=== PATIENT | male | born 1935 | race Hispanic/Latino ===

== ENCOUNTER 2016-08-24 10:02 | Emergency (ER) | payer MEDICARE, MEDICAID ==
[~2016-08-24] VITALS: Ht 170.2 cm; Wt 54.4 kg
[~2016-08-24 10:02] MED LIST: ALBUTEROL SULF8.5 GM INH; ARICEPT10 MG GT; ASPIR 8181 MG GT; COLACE100 MG GT; COLACE100 MG/10 GT; COZAAR25 MG GT; DEPAKOTE ER500 MG ORAL; DOCUSATE SODIU100 MG GT; FLAGYL250 MG GT; LEVAQUIN250 M1 ORAL; LEVOTHYROXINE25 MCG GT; METOPROLOL TART25 MG GT; MULTIVITAMINS1 EAC8 GT; OMEPRAZOLE20 M3 GT; PROTONIX40 M2 GT; TYLENOL EXTRA500 MG GT; VITAMIN A & D113 GM TP; VITAMIN D1000 UNI1 GT; VITAMIN D1000 UNI1 ORAL
[2016-08-24] MEDS ORDERED: TRIPLE ANTIBI28.4 GM TP (10:08)
[2016-08-24] MEDS ORDERED: ACETAMINOP160 MG/5 M ORAL (10:08)
[2016-08-24] MEDS ORDERED: VITAMIN A & D113 GM TP (10:08)
[2016-08-24 11:00] VITALS: BP 132/65
--- NOTE | 2016-08-24 11:31 | Diagnostic Imaging Report ---
Indication: Post gastrostomy replacement Technique: Supine view of the abdomen after injection of water-soluble contrast into gastrostomy Comparison: 08/08/2016 Findings: Contrast opacifies the stomach. No contrast extravasation is demonstrated. The bowel gas pattern is unremarkable. Dense stool is seen within the colon. Findings are unchanged Impression: Satisfactory position of gastrostomy tube
--- NOTE | 2016-08-24 12:22 | Emergency Room Report ---
History of Present Illness General Chief Complaint: Malfunctioning Gastric Tube Source: Medical Record, EMS Present Illness HPI Patient presents with request of the feeding tube confirmation There was a questionable reading on the x-ray as an outpatient It was unclear the patient had appropriate placement of the feeding tube No reports of vomiting or diarrhea patient has been treated as an outpatient nursing facility for pneumonia History of present illness is limited as the patient himself is nonverbal and appears chronically debilitated Allergies: Coded Allergies: NO KNOWN DRUG ALLERGIES (Unverified Allergy, Unknown, 09/20/15) Patient History Past Medical History: see triage record Pertinent Family History: none Reviewed Nursing Documentation: PMH: Agreed, PSxH: Agreed Nursing Documentation-PMH Past Medical History: No History, Except For Hx Cardiac Problems: Yes - anemia, angina,CAD Hx Hypertension: Yes Hx Pacemaker: No Hx Asthma: No Hx COPD: No Hx Diabetes: No Hx Cancer: No Hx Gastrointestinal Problems: Yes - Dysphagia, G-tube Hx Dialysis: No Hx Neurological Problems: Yes Hx Cerebrovascular Accident: Yes - TIA Hx Transient Ischemic Attacks: Yes - no residual Hx Dementia: Yes Hx Seizures: No Hx Spinal Cord Injury: Yes - spinal stenosis Hx Dysphasia: Yes Hx Weakness: Yes - generalized muscle weakness Hx Neurologic Surgery: No Hx Brain Shunt: No Review of Systems All Other Systems: limited - Other than the ones mentioned in the history of present illness all others are reviewed however they do stay limited due to the patient's mental status Physical Exam Vital Signs Date Time Temp Pulse Resp B/P Pulse Ox O2 Delivery O2 Flow Rate FiO2 08/24/16 09:56 96.8 52 22 86/57 99 Nasal Cannula 2.0 Sp02 EP Interpretation: reviewed, normal General Appearance: no apparent distress Head: normocephalic, atraumatic Eyes: bilateral eye PERRL ENT: normal pharynx, no angioedema Neck: supple Respiratory: lungs clear, no rhonchi, crackles - mild crackles in both lower lobes Cardiovascular #1: regular rate, rhythm Gastrointestinal: soft, no mass Neurologic: responsive - To physical stimuli Skin: no rash, warm/dry Medical Decision Making Diagnostic Impression: Primary Impression: Feeding by G-tube Additional Impressions: G tube feedings Encounter for feeding tube placement ER Course The patient appears to have a feeding tube through the stoma This was evaluated further balloon was deflated The feeding tube itself was reevaluated and placed into the stoma without any resistance The balloon was inflated And tapedown at this time KUB Gastrografin reveals intraluminal findings no obvious extravasation And the patient is stable for close outpatient long-term followup Chest X-Ray Diagnostic Results Number of Views: 1 Other X-Ray Diagnostic Results Other X-Ray Diagnostic Results : EP Interpretation: Yes Findings: no fractures, no dislocation, no soft tissue swelling, other - Contrast appears intraluminal no obvious extravasation, Last Vital Signs Date Time Temp Pulse Resp B/P Pulse Ox O2 Delivery O2 Flow Rate FiO2 08/24/16 11:00 82 18 132/65 95 Nasal Cannula 2.0 08/24/16 09:56 96.8 Status: improved Disposition: [facility] SN[facility] Condition: Improved Referrals: NON PHYSICIAN (PCP) MALIK SUAREZ D.O. Aug 24, 2016 12:22
[2016-08-24 12:45] VITALS: BP 131/66
[2016-08-24 12:46] VITALS: BP 132/65
== END 2016-08-24 12:51 ==
LOC: EDBD 10:02 → EMR 10:41
DX: K94.23 Gastrostomy malfunction (principal); Y83.8 Other surgical procedures as the cause of abnormal reaction of the patient, or of later complication, without mention of misadventure at the time of the procedure; D64.9 Anemia, unspecified; I25.119 Atherosclerotic heart disease of native coronary artery with unspecified angina pectoris; I10 Essential (primary) hypertension; R13.10 Dysphagia, unspecified; F03.90 Unspecified dementia, unspecified severity, without behavioral disturbance, psychotic disturbance, mood disturbance, and anxiety; M48.00 Spinal stenosis, site unspecified; R53.1 Weakness; Z86.73 Personal history of transient ischemic attack (TIA), and cerebral infarction without residual deficits
CPT/HCPCS: 43760; 74000

== ENCOUNTER 2017-06-25 09:51 | Emergency (ER) | payer MEDICARE, MEDICAID ==
[~2017-06-25] VITALS: Ht 170.2 cm; Wt 68.0 kg
[~2017-06-25 09:51] MED LIST changes: +ACETAMINOP160 MG/5 M ORAL; +TRIPLE ANTIBI28.4 GM TP
[2017-06-25 10:23] VITALS: BP 109/85
[2017-06-25] MEDS ORDERED: ALBUTEROL2.5 MG/3 M INH (11:23)
[2017-06-25 12:57] VITALS: BP 102/58
--- NOTE | 2017-06-25 14:16 | Emergency Room Report ---
History of Present Illness General Chief Complaint: Malfunctioning Gastric Tube Source: Patient Present Illness HPI 82-year-old male presents ED for G-tube placement. G-tube came out assisted today. On arrival patient showing no signs of distress. Patient has dementia and is unable to provide any history at this time. No other aggravating or relieving factors. No other associated symptoms Allergies: Coded Allergies: NO KNOWN DRUG ALLERGIES (Unverified Allergy, Unknown, 09/20/15) Patient History Past Medical History: CAD, CVA/TIA Past Surgical History: other - gtube Pertinent Family History: none Social History: Denies: smoking, alcohol use, drug use Immunizations: UTD Reviewed Nursing Documentation: PMH: Agreed, PSxH: Agreed Nursing Documentation-PMH Hx Cardiac Problems: Yes - anemia, angina,CAD Hx Hypertension: Yes Hx Pacemaker: No Hx Asthma: No Hx COPD: No Hx Diabetes: No Hx Cancer: No Hx Gastrointestinal Problems: Yes - Dysphagia, G-tube Hx Dialysis: No Hx Neurological Problems: Yes Hx Cerebrovascular Accident: Yes - TIA Hx Transient Ischemic Attacks: Yes - no residual Hx Dementia: Yes Hx Seizures: No Hx Spinal Cord Injury: Yes - spinal stenosis Hx Dysphasia: Yes Hx Weakness: Yes - generalized muscle weakness Hx Neurologic Surgery: No Hx Brain Shunt: No Review of Systems All Other Systems: negative except mentioned in HPI Physical Exam Vital Signs Date Time Temp Pulse Resp B/P (MAP) Pulse Ox O2 Delivery O2 Flow Rate FiO2 06/25/17 09:48 97.0 68 16 98 Room Air 06/25/17 10:23 109/85 Sp02 EP Interpretation: reviewed, normal General Appearance: other - dementia Head: normocephalic Eyes: bilateral eye normal inspection, bilateral eye PERRL ENT: normal ENT inspection Neck: normal inspection Respiratory: normal inspection Cardiovascular #1: normal inspection Gastrointestinal: normal inspection, other - Gtube site C/D/I Rectal: deferred Genitourinary: no CVA tenderness Musculoskeletal: normal inspection Neurologic: other - dementia Psychiatric: other - dementia Skin: normal inspection Lymphatic: normal inspection Procedures Additional Procedure Procedure Narrative G-tube placement Patient placed on stretcher. Old G-tube is removed by deflating the balloon using syringe. G-tube site is inspected with no contraindications to G-tube placement. G-tube slowly inserted until resistance is met; G-tube balloon is slowly filled with 20 mL of normal saline and slowly retracted back until resistance is met. G-tube placement is confirmed with KUB study using Gastrografin Medical Decision Making Diagnostic Impression: Primary Impression: Malfunction of gastrostomy tube ER Course Hospital Course 82-year-old male presents to ED for G-tube placement. Clinical course Patient placed on stretcher. After initial history and physical I replaced G- tube and inflate the balloon. G-tube placement confirmed with KUB study. Patient remained stable without any signs of distress. snf called and patient subsequently discharged back to facility. Dr Trinidad made aware that G-tube was successfully replaced and patient return to facility Diagnosis - malfunction of G tube stable and discharged back to facility. Followup with PMD. Return to ED if symptoms recur or worsen Other X-Ray Diagnostic Results Other X-Ray Diagnostic Results : X-Ray ordered: KUB # of Views/Limited Vs Complete: 1 View Indication: Other - gtube placement EP Interpretation: Yes Interpretation: nonspecific bowel gas, no sbo, other - gtube in place Impression: Other - gtube in place Electronically Signed by: Electronically signed by Cameron Barnett MD Last Vital Signs Date Time Temp Pulse Resp B/P (MAP) Pulse Ox O2 Delivery O2 Flow Rate FiO2 06/25/17 12:57 72 18 102/58 100 Room Air 06/25/17 10:23 97.0 Status: improved Disposition: HOME, SELF-CARE Condition: Stable Referrals: JORDEN VARGAS (PCP) Patient Instructions: Gastrostomy Tube Home Guide, Adult CAMERON BARNETT M.D. Jun 25, 2017 14:16
--- NOTE | 2017-06-25 15:13 | Diagnostic Imaging Report ---
Indication: Status post gastrostomy replacement Technique: Supine view of the abdomen after injection of water-soluble contrast into gastrostomy Comparison: 08/24/2016 Findings: Contrast opacifies the duodenum distal to the bulb. No gastric luminal opacification is demonstrated, so physicians less inflation of the balloon recess. However, on both image sets, contrast flows directly into the second portion of the duodenum, indicating good position of the tip, there is no contrast extravasation. Impression: Presumed status position of gastrostomy tube Findings previously discussed by phone with Dr. Barnett in the emergency room
== END 2017-06-25 13:00 | disposition home or self-care (01) ==
LOC: EDBD 09:51 → EMR 10:18
DX: K94.23 Gastrostomy malfunction (principal); Y83.3 Surgical operation with formation of external stoma as the cause of abnormal reaction of the patient, or of later complication, without mention of misadventure at the time of the procedure; R13.10 Dysphagia, unspecified; I25.10 Atherosclerotic heart disease of native coronary artery without angina pectoris; I10 Essential (primary) hypertension; Z86.73 Personal history of transient ischemic attack (TIA), and cerebral infarction without residual deficits; F03.90 Unspecified dementia, unspecified severity, without behavioral disturbance, psychotic disturbance, mood disturbance, and anxiety
CPT/HCPCS: 43760; 74000; 99284; Q9963

== ENCOUNTER 2017-07-02 10:13 | Inpatient (IN) | payer MEDICARE, MEDICAID ==
[~2017-07-02] VITALS: Ht 162.6 cm; Wt 49.9 kg
[~2017-07-02 10:13] MED LIST changes: +ALBUTEROL2.5 MG/3 M INH
[2017-07-02] MEDS ORDERED: Sodium Chloride 500ML 500 ML IV ONE (10:29)
[2017-07-02 11:07] LABS: MEAN CORPUSCULAR HEMOGLOBIN 32.5 PG (27.0-31.0); MEAN CORPUSCULAR HGB CONC 31.7 G/DL (32.0-36.0); MEAN CORPUSCULAR VOLUME 103 FL (80-99); MEAN PLATELET VOLUME 7.6 FL (6.5-10.1); PLATELET COUNT 209 K/UL (150-450); RED BLOOD COUNT 3.97 M/UL (4.70-6.10); RED CELL DISTRIBUTION WIDTH 11.5 % (11.6-14.8); WHITE BLOOD COUNT 7.7 K/UL (4.8-10.8)
[2017-07-02 11:13] VITALS: BP 122/66
[2017-07-02 11:25] LABS: ANISOCYTOSIS 1+; BAND NEUTROPHILS % (MANUAL) 5 % (0-8); BASOPHILS % (MANUAL) 0 % (0-2); EOSINOPHILS % (MANUAL) 0 % (0-3); LYMPHOCYTES % (MANUAL) 6 % (20-45); MACROCYTES 1+; NEUTROPHILS % (MANUAL) 83 % (45-75); PLATELET ESTIMATE ADEQUATE; PLATELET MORPHOLOGY NORMAL; TOTAL CELLS COUNTED 100
[2017-07-02 11:30] VITALS: BP 121/66
[2017-07-02 11:31] LABS: ALANINE AMINOTRANSFERASE 75 U/L (12-78); ALBUMIN/GLOBULIN RATIO 0.6 (1.0-2.7); ANION GAP 44 mmol/L (5-15); ASPARTATE AMINO TRANSFERASE 77 U/L (15-37); CARBON DIOXIDE 20 MMOL/L (21-32); CHLORIDE 87 MMOL/L (98-107); CREATININE 0.7 MG/DL (0.55-1.30); POTASSIUM 3.6 MMOL/L (3.5-5.1); SODIUM 151 MMOL/L (136-145); TOTAL PROTEIN 6.7 G/DL (6.4-8.2)
[2017-07-02 11:40] LABS: CKMB 1.5 NG/ML (0.0-3.6); LIPASE 84 U/L (73-393)
--- NOTE | 2017-07-02 11:42 | Diagnostic Imaging Report ---
Indication: Chest pain Comparison: 12/10/15 A single view chest radiograph was obtained. Findings: The patient's hand is obscuring the right lung base. There is suggestion of mild atelectasis at the left lung base with low lung volumes noted. Bones are osteopenic. Heart size is normal. Pulmonary vascularity is within normal limits. Impression: Suboptimal examination as described above. Mild left basal atelectasis noted.
[2017-07-02 12:41] LABS: INR 1.1 (0.9-1.1)
[2017-07-02 13:20] VITALS: BP 118/62
--- NOTE | 2017-07-02 13:46 | Emergency Room Report ---
History of Present Illness General Chief Complaint: Gastrointestinal Bleed Source: Patient, Medical Record Present Illness HPI Patient present from nursing facility with reports of coffee-ground emesis Patient has been weaker than usual There was no reports of diarrhea Patient has a feeding tube in place Patient himself is nonverbal History of present illness is limited There was no reports of fevers or chills No rash reported Allergies: Coded Allergies: NO KNOWN DRUG ALLERGIES (Unverified Allergy, Unknown, 09/20/15) Patient History Limited by: medical condition Past Medical History: see triage record Pertinent Family History: none, unable to obtain Reviewed Nursing Documentation: PMH: Agreed, PSxH: Agreed Nursing Documentation-PMH Past Medical History: No History, Except For Hx Cardiac Problems: Yes - anemia, angina,CAD Hx Hypertension: Yes Hx Pacemaker: No Hx Asthma: No Hx COPD: No Hx Diabetes: No Hx Cancer: No Hx Gastrointestinal Problems: Yes - Dysphagia, G-tube Hx Dialysis: No Hx Neurological Problems: Yes Hx Cerebrovascular Accident: Yes - TIA Hx Transient Ischemic Attacks: Yes - no residual Hx Dementia: Yes Hx Seizures: No Hx Spinal Cord Injury: Yes - spinal stenosis Hx Dysphasia: Yes Hx Weakness: Yes - generalized muscle weakness Hx Neurologic Surgery: No Hx Brain Shunt: No Review of Systems All Other Systems: limited - Other than the ones mentioned in the history of present illness all others are reviewed however they do stay limited due to the patient's mental status Physical Exam Vital Signs Date Time Temp Pulse Resp B/P (MAP) Pulse Ox O2 Delivery O2 Flow Rate FiO2 07/02/17 10:14 97.5 108 18 107/51 94 Room Air 07/02/17 11:13 4.0 Sp02 EP Interpretation: reviewed, normal General Appearance: cachetic - weak Head: normocephalic, atraumatic Eyes: bilateral eye PERRL ENT: dry mucus membranes Neck: supple, thyroid normal Respiratory: crackles - diffusely lower lobes Cardiovascular #1: regular rate, rhythm Gastrointestinal: non tender, soft, other - Feeding tube in place Musculoskeletal: other - Patient is chronically debilitated legs are flexed not following commands Neurologic: responsive - To physical stimuli Skin: no rash Lymphatic: no adenopathy Medical Decision Making Diagnostic Impression: Primary Impression: Hypernatremia Additional Impressions: Hypochloremia Dehydration UTI (urinary tract infection) ER Course Patient is complex with multiple differentials considered At this time showing signs of electrolyte abnormality Patient also has concern of possible GI bleeding Patient has evidence of UTI, antibiotic was deferred to infectious disease as there has been multiple assistants previously Patient's further hydrated Requires inpatient care and evaluation Labs Test 07/02/17 10:30 07/02/17 12:20 07/02/17 14:01 White Blood Count 7.7 K/UL (4.8-10.8) Red Blood Count 3.97 M/UL (4.70-6.10) Hemoglobin 12.9 G/DL (14.2-18.0) Hematocrit 40.7 % (42.0-52.0) Mean Corpuscular Volume 103 FL (80-99) Mean Corpuscular Hemoglobin 32.5 PG (27.0-31.0) Mean Corpuscular Hemoglobin Concent 31.7 G/DL (32.0-36.0) Red Cell Distribution Width 11.5 % (11.6-14.8) Platelet Count 209 K/UL (150-450) Mean Platelet Volume 7.6 FL (6.5-10.1) Neutrophils (%) (Auto) % (45.0-75.0) Lymphocytes (%) (Auto) % (20.0-45.0) Monocytes (%) (Auto) % (1.0-10.0) Eosinophils (%) (Auto) % (0.0-3.0) Basophils (%) (Auto) % (0.0-2.0) Differential Total Cells Counted 100 Neutrophils % (Manual) 83 % (45-75) Lymphocytes % (Manual) 6 % (20-45) Monocytes % (Manual) 6 % (1-10) Eosinophils % (Manual) 0 % (0-3) Basophils % (Manual) 0 % (0-2) Band Neutrophils 5 % (0-8) Platelet Estimate Adequate Platelet Morphology Normal Anisocytosis 1+ Macrocytosis 1+ Sodium Level 151 MMOL/L (136-145) Potassium Level 3.6 MMOL/L (3.5-5.1) Chloride Level 87 MMOL/L (98-107) Carbon Dioxide Level 20 MMOL/L (21-32) Anion Gap 44 mmol/L (5-15) Blood Urea Nitrogen 21 mg/dL (7-18) Creatinine 0.7 MG/DL (0.55-1.30) Estimat Glomerular Filtration Rate mL/min (>60) Glucose Level 116 MG/DL (74-106) Calcium Level 8.0 MG/DL (8.5-10.1) Total Bilirubin 0.7 MG/DL (0.2-1.0) Aspartate Amino Transf (AST/SGOT) 77 U/L (15-37) Alanine Aminotransferase (ALT/SGPT) 75 U/L (12-78) Alkaline Phosphatase 103 U/L (46-116) Total Creatine Kinase 48 U/L (26-308) Creatine Kinase MB 1.5 NG/ML (0.0-3.6) Creatine Kinase MB Relative Index 3.1 Troponin I 0.018 ng/mL (0.000-0.056) Pro-B-Type Natriuretic Peptide 462 pg/mL (0-125) Total Protein 6.7 G/DL (6.4-8.2) Albumin 2.6 G/DL (3.4-5.0) Globulin 4.1 g/dL Albumin/Globulin Ratio 0.6 (1.0-2.7) Lipase 84 U/L (73-393) Prothrombin Time 11.0 SEC (9.30-11.50) Prothromb Time International Ratio 1.1 (0.9-1.1) Activated Partial Thromboplast Time 31 SEC (23-33) Urine Color Yellow Urine Appearance Slightly cloudy Urine pH 7 (4.5-8.0) Urine Specific [place] 1.010 (1.005-1.035) Urine Protein 2+ (NEGATIVE) Urine Glucose (UA) Negative (NEGATIVE) Urine Ketones 1+ (NEGATIVE) Urine Occult Blood 5+ (NEGATIVE) Urine Nitrite Positive (NEGATIVE) Urine Bilirubin Negative (NEGATIVE) Urine Urobilinogen 4 MG/DL (0.0-1.0) Urine Leukocyte Esterase 3+ (NEGATIVE) Urine RBC 20-30 /HPF (0 - 0) Urine WBC 5-10 /HPF (0 - 0) Urine Squamous Epithelial Cells Occasional /LPF Urine Bacteria Many /HPF (NONE) Rhythm Strip Diag. Results EP Interpretation: yes Rate: 78 Rhythm: NSR, no PVC's, no ectopy Chest X-Ray Diagnostic Results Chest X-Ray Diagnostic Results : Chest X-Ray Ordered: Yes # of Views/Limited/Complete: 1 View Indication: Shortness of Breath EP Interpretation: Yes Interpretation: no pneumothorax, other - Heart size normal, small effusion difficult exam, Impression: Other - small effusion Electronically Signed by: Samir Suarez DO Last Vital Signs Date Time Temp Pulse Resp B/P (MAP) Pulse Ox O2 Delivery O2 Flow Rate FiO2 07/02/17 11:30 100.0 21 121/66 94 Simple Mask 4.0 07/02/17 11:13 106 Status: improved Disposition: ADMITTED INPATIENT Condition: Serious Referrals: JORDEN VRAGAS (PCP) SAMIR SUAREZ D.O. Jul 02, 2017 13:46
[2017-07-02 14:40] LABS: APPEARANCE,URINE SLIGHTLY CLOUDY; KETONES,URINE 1+ (NEGATIVE); LEUKOCYTE ESTERASE ,URINE 3+ (NEGATIVE); NITRITE,URINE POSITIVE (NEGATIVE); PH,URINE 7 (4.5-8.0); PROTEIN,URINE 2+ (NEGATIVE); UROBILINOGEN,URINE 4 MG/DL (0.0-1.0)
[2017-07-02 14:46] LABS: BACTERIA,URINE MANY /HPF; RBC,URINE 20-30 /HPF (0 - 0); SQUAMOUS EPITHELIAL CELL,UR OCCASIONAL /LPF (NONE/OCC)
--- NOTE | 2017-07-02 16:39 | History & Physical ---
History and Physical History & Physicial coffee ground vomitus PEG UTI Dehydration , High Na MalNutrition Hydrate- Protonix IV Urine c/s [facility] # [id number] JORDEN VARGAS Jul 02, 2017 16:39
[2017-07-02] MEDS ORDERED: Haloperidol 5mg/ml Inj IM PRN (17:00)
[2017-07-02] MEDS ORDERED: cefTRIAXone 1 GM in D5W 55 ML IVPB SCH (18:00)
[2017-07-02 18:15] VITALS: BP 103/63
[2017-07-02] MEDS: Potassium Chloride 10 MEQ in D5 1/2NS 1,000 ML IV SCH (18:22)
--- NOTE | 2017-07-02 19:10 | Consultation ---
History of Present Illness General Date patient seen: Jul 02, 2017 Chief Complaint: Gastrointestinal Bleed Reason for Consultation: inpatient management Present Illness HPI 82 year old male with end stage dementia, Bed bound, cachectic with Gtube, presented from nursing facility with reports of coffee-ground emesis Patient has been weaker than usual. Patient himself is nonverbal. Pt looks chronically ill, and can't give any history. Allergies: Coded Allergies: NO KNOWN DRUG ALLERGIES (Unverified Allergy, Unknown, 09/20/15) Medication History Scheduled Petrolatum,White/Lanolin (Vitamin A & D Ointment), 113 GM TP DAILY, (Reported) Scheduled PRN Acetaminophen 160MG/5ML* (Acetaminophen*), 20 ML ORAL Q6HR PRN for For Pain, ( Reported) Albuterol Sulfate* (Albuterol Sulfate Hhn*), 3 ML INH Q6H PRN for Shortness of Breath, (Reported) Patient History Healthcare decision maker Resuscitation status Do Not Resuscitate Advanced Directive on File Yes Past Medical/Surgical History Past Medical/Surgical History: (1) S/P percutaneous endoscopic gastrostomy (PEG) tube placement (2) Dementia (3) CAD (coronary artery disease) (4) HTN (hypertension) Review of Systems Constitutional: Reports: no symptoms Eye: Reports: no symptoms Physical Exam General Appearance: cachetic Lines, tubes and drains: peripheral HEENT: normocephalic, atraumatic Neck: non-tender, normal alignment Respiratory/Chest: chest wall non-tender, lungs clear Breasts: no masses Cardiovascular/Chest: normal peripheral pulses Abdomen: normal bowel sounds, soft Genitourinary/Rectal: normal genital exam Extremities: normal range of motion Last 24 Hour Vital Signs Date Time Temp Pulse Resp B/P (MAP) Pulse Ox O2 Delivery O2 Flow Rate FiO2 07/02/17 18:15 98.1 93 19 103/63 Nasal Cannula 4.0 07/02/17 16:00 89 07/02/17 11:30 100.0 21 121/66 94 Simple Mask 4.0 07/02/17 11:13 97.5 106 18 122/66 93 Nasal Cannula 4.0 07/02/17 10:14 97.5 108 18 107/51 94 Room Air Intake and Output 07/02/17 07/03/17 19:00 07:00 Output Total 150 ml Balance -150 ml Output Urine Total 150 ml # Voids 1 # Bowel Movements 1 Laboratory Tests Test 07/02/17 10:30 07/02/17 12:20 07/02/17 14:01 White Blood Count 7.7 K/UL (4.8-10.8) Red Blood Count 3.97 M/UL (4.70-6.10) L Hemoglobin 12.9 G/DL (14.2-18.0) L Hematocrit 40.7 % (42.0-52.0) L Mean Corpuscular Volume 103 FL (80-99) H Mean Corpuscular Hemoglobin 32.5 PG (27.0-31.0) H Mean Corpuscular Hemoglobin Concent 31.7 G/DL (32.0-36.0) L Red Cell Distribution Width 11.5 % (11.6-14.8) L Platelet Count 209 K/UL (150-450) Mean Platelet Volume 7.6 FL (6.5-10.1) Neutrophils (%) (Auto) % (45.0-75.0) Lymphocytes (%) (Auto) % (20.0-45.0) Monocytes (%) (Auto) % (1.0-10.0) Eosinophils (%) (Auto) % (0.0-3.0) Basophils (%) (Auto) % (0.0-2.0) Differential Total Cells Counted 100 Neutrophils % (Manual) 83 % (45-75) H Lymphocytes % (Manual) 6 % (20-45) L Monocytes % (Manual) 6 % (1-10) Eosinophils % (Manual) 0 % (0-3) Basophils % (Manual) 0 % (0-2) Band Neutrophils 5 % (0-8) Platelet Estimate Adequate Platelet Morphology Normal Anisocytosis 1+ Macrocytosis 1+ Sodium Level 151 MMOL/L (136-145) H Potassium Level 3.6 MMOL/L (3.5-5.1) Chloride Level 87 MMOL/L (98-107) L Carbon Dioxide Level 20 MMOL/L (21-32) L Anion Gap 44 mmol/L (5-15) H Blood Urea Nitrogen 21 mg/dL (7-18) H Creatinine 0.7 MG/DL (0.55-1.30) Estimat Glomerular Filtration Rate mL/min (>60) Glucose Level 116 MG/DL (74-106) H Calcium Level 8.0 MG/DL (8.5-10.1) L Total Bilirubin 0.7 MG/DL (0.2-1.0) Aspartate Amino Transf (AST/SGOT) 77 U/L (15-37) H Alanine Aminotransferase (ALT/SGPT) 75 U/L (12-78) Alkaline Phosphatase 103 U/L (46-116) Total Creatine Kinase 48 U/L (26-308) Creatine Kinase MB 1.5 NG/ML (0.0-3.6) Creatine Kinase MB Relative Index 3.1 Troponin I 0.018 ng/mL (0.000-0.056) Pro-B-Type Natriuretic Peptide 462 pg/mL (0-125) H Total Protein 6.7 G/DL (6.4-8.2) Albumin 2.6 G/DL (3.4-5.0) L Globulin 4.1 g/dL Albumin/Globulin Ratio 0.6 (1.0-2.7) L Lipase 84 U/L (73-393) Prothrombin Time 11.0 SEC (9.30-11.50) Prothromb Time International Ratio 1.1 (0.9-1.1) Activated Partial Thromboplast Time 31 SEC (23-33) Urine Color Yellow Urine Appearance Slightly cloudy Urine pH 7 (4.5-8.0) Urine Specific [place] 1.010 (1.005-1.035) Urine Protein 2+ (NEGATIVE) H Urine Glucose (UA) Negative (NEGATIVE) Urine Ketones 1+ (NEGATIVE) H Urine Occult Blood 5+ (NEGATIVE) H Urine Nitrite Positive (NEGATIVE) H Urine Bilirubin Negative (NEGATIVE) Urine Urobilinogen 4 MG/DL (0.0-1.0) H Urine Leukocyte Esterase 3+ (NEGATIVE) H Urine RBC 20-30 /HPF (0 - 0) H Urine WBC 5-10 /HPF (0 - 0) H Urine Squamous Epithelial Cells Occasional /LPF Urine Bacteria Many /HPF (NONE) H Height (Feet): 5 Height (Inches): 4.00 Weight (Pounds): 110 Medications Current Medications Medications (Trade) Dose Ordered Sig/Jovanna Route PRN Reason Start Time Stop Time Status Last Admin Dose Admin Albuterol Sulfate (Proventil) 2.5 mg TIDRT HHN 07/02/17 19:00 07/07/17 18:59 Ceftriaxone Sodium 1 gm/ Dextrose 55 ml @ 110 mls/hr Q24H IVPB 07/02/17 18:00 07/09/17 17:59 07/02/17 18:22 Haloperidol Lactate (Haldol) 2 mg Q4H PRN IM Agitation 07/02/17 17:00 08/01/17 16:59 Heparin Sodium (Porcine) (Heparin 5000 units/ml) 5,000 units EVERY 12 HOURS SUBQ 07/02/17 21:00 08/01/17 20:59 Metoprolol Tartrate (Lopressor) 12.5 mg Q12HR GT 07/02/17 21:00 08/01/17 20:59 Pantoprazole (Protonix) 40 mg EVERY 12 HOURS IVP 07/02/17 21:00 08/01/17 20:59 Potassium Chloride 10 meq/ Dextrose/Sodium Chloride 1,005 ml @ 75 mls/hr [id number] IV 07/02/17 18:15 08/01/17 18:14 07/02/17 18:22 Assessment/Plan Problem List: (1) Gastrointestinal hemorrhage ICD Codes: K92.2 - Gastrointestinal hemorrhage, unspecified SNOMED: 17516839 (2) S/P percutaneous endoscopic gastrostomy (PEG) tube placement ICD Codes: Z93.1 - Gastrostomy status SNOMED: 068562234 (3) Dementia ICD Codes: F03.90 - Unspecified dementia without behavioral disturbance SNOMED: 41311054 (4) CAD (coronary artery disease) ICD Codes: I25.10 - Atherosclerotic heart disease of [place] coronary artery without angina pectoris SNOMED: 17219275 (5) HTN (hypertension) ICD Codes: I10 - Essential (primary) hypertension SNOMED: 03943294 (6) Hypernatremia ICD Codes: E87.0 - Hyperosmolality and hypernatremia SNOMED: 36300622 Assessment/Plan NPO IV fluids check electrolytes GI evaluation dvt prophylaxis DAVID SERVIN Jul 02, 2017 19:10
[2017-07-02] MEDS: Albuterol ud Inhalation HHN SCH (19:33)
[2017-07-02 20:00] VITALS: BP 135/74
[2017-07-02] MEDS: Pantoprazole Inj IVP SCH (21:19)
[2017-07-02] MEDS: Metoprolol Tartrate 12.5mg TAB GT SCH (21:20)
[2017-07-02] MEDS: Heparin 5000 units/ml inj SUBQ SCH (21:22)
--- NOTE | 2017-07-02 22:45 | History and Physical Report ---
DATE OF ADMISSION: 07/02/2017 HISTORY OF PRESENT ILLNESS: The patient is an 82-year-old male, in vegetative state in [facility], DNR and DNI, who had coffee-ground vomitus, was sent to emergency room here for evaluation. After he was evaluated by Dr. Arteaga in emergency room the patient is being admitted with gastrointestinal bleed, hypernatremia, dehydration, and evidence of urinary tract infection. PAST MEDICAL HISTORY: Significant for dementia, hypothyroidism, previous UTI, PEG, malnutrition, anemia, and hypertension. MEDICATIONS: According to the list. PHYSICAL EXAMINATION: VITAL SIGNS: At this time, the patient's blood pressure , pulse rate 106, T-max 100, respiratory rate 21, GENERAL: Nonverbal. Face slightly pale. HEENT: Head is normocephalic. NECK: Rigid to all direction. LUNGS: Poor inspiratory effort. Decreased breath sound over the bases. HEART: Regular. Occasional irregular beat. Slightly tachy. GT-tube in place. ABDOMEN: Soft. EXTREMITIES: Lower extremities, somewhat contracted. LABORATORY DATA: Hemoglobin 12.9. BUN 44, sodium 151. Albumin 2.6. Urine has 3+ leukocyte esterase, 2+ protein, 30 RBCs, and 10 white blood cells. IMPRESSION: Coffee-ground vomiting and gastrointestinal bleed most likely secondary to underlying infection and urinary tract infection, also evidence of dehydration and malnutrition. The patient has PEG and hypernatremia due to dehydration. The patient has organic brain syndrome and hypothyroidism. PLAN: Hydrate. Protonix IV. Urine for culture. Breathing treatment. Rocephin. Pulmonary evaluation. According to how the patient's condition evolves, we make the proper changes in our future management. The patient is DNR/DNI. Da Davis M.D. DR: Reynaldo JOB#: [id number] CC:
[2017-07-03] VITALS: BP 121/70
[2017-07-03 04:00] VITALS: BP 114/69
[2017-07-03 08:00] VITALS: BP 108/61
[2017-07-03] MEDS: Albuterol ud Inhalation HHN SCH ×3 (08:16→20:04)
[2017-07-03] MEDS: Pantoprazole Inj IVP SCH ×2 (08:41→20:37)
[2017-07-03] MEDS: Potassium Chloride 10 MEQ in D5 1/2NS 1,000 ML IV SCH (08:41)
[2017-07-03] MEDS: Heparin 5000 units/ml inj SUBQ SCH (08:52)
[2017-07-03] MEDS: Metoprolol Tartrate 12.5mg TAB GT SCH (08:58)
[2017-07-03 10:06] LABS: MEAN CORPUSCULAR HEMOGLOBIN 32.6 PG (27.0-31.0); MEAN CORPUSCULAR VOLUME 102 FL (80-99); PLATELET COUNT 201 K/UL (150-450); RED BLOOD COUNT 3.59 M/UL (4.70-6.10); RED CELL DISTRIBUTION WIDTH 11.1 % (11.6-14.8); WHITE BLOOD COUNT 18.3 K/UL (4.8-10.8)
[2017-07-03 10:38] LABS: ALANINE AMINOTRANSFERASE 72 U/L (12-78); ALBUMIN/GLOBULIN RATIO 0.6 (1.0-2.7); ANION GAP 7 mmol/L (5-15); ASPARTATE AMINO TRANSFERASE 78 U/L (15-37); CALCIUM 8.6 MG/DL (8.5-10.1); CARBON DIOXIDE 26 MMOL/L (21-32); CHLORIDE 101 MMOL/L (98-107); CHOLESTEROL 72 MG/DL (< 200); CHOLESTEROL/HDL RATIO 1.6 (3.3-4.4); CREATININE 0.7 MG/DL (0.55-1.30); CRP QUANT 11.8 mg/dL (0.00-0.90); MAGNESIUM 1.8 MG/DL (1.8-2.4); SODIUM 134 MMOL/L (136-145); THYROID STIMULATING HORMONE 3.189 uiU/mL (0.360-3.740); TOTAL PROTEIN 6.8 G/DL (6.4-8.2); URIC ACID 3.3 MG/DL (2.6-7.2)
[2017-07-03 10:39] LABS: BILIRUBIN,DIRECT 0.9 MG/DL (0.0-0.3)
[2017-07-03 10:41] LABS: BAND NEUTROPHILS % (MANUAL) 10 % (0-8); BASOPHILS % (MANUAL) 0 % (0-2); EOSINOPHILS % (MANUAL) 0 % (0-3); LYMPHOCYTES % (MANUAL) 8 % (20-45); NEUTROPHILS % (MANUAL) 81 % (45-75); PLATELET ESTIMATE ADEQUATE; PLATELET MORPHOLOGY NORMAL; TOTAL CELLS COUNTED 100
[2017-07-03 10:46] LABS: FOLIC ACID 18.3 NG/ML (3.1-17.5)
[2017-07-03 12:00] VITALS: BP 112/63
--- NOTE | 2017-07-03 12:29 | General Progress Note ---
Assessment/Plan Status: stable Status Narrative H&H stable- Urine c/s pending Assessment/Plan status: coffee ground vomitus PEG UTI Dehydration , High Na MalNutrition Plan: Hydrate- Protonix IV Urine c/s HHN Rocephin start GT feeding Med-Surge Subjective ROS Limited/Unobtainable: Yes Allergies: Coded Allergies: NO KNOWN DRUG ALLERGIES (Unverified Allergy, Unknown, 09/20/15) Objective Last 24 Hour Vital Signs Date Time Temp Pulse Resp B/P (MAP) Pulse Ox O2 Delivery O2 Flow Rate FiO2 07/03/17 08:58 102 108/61 07/03/17 08:26 94 20 97 Nasal Cannula 4.0 36 07/03/17 08:18 92 20 95 Nasal Cannula 4.0 36 07/03/17 08:18 95 Nasal Cannula 4.0 36 07/03/17 08:18 Nasal Cannula 4.0 36 07/03/17 08:00 97.5 92 20 108/61 90 Room Air 07/03/17 04:00 97.7 97 18 114/69 100 Nasal Cannula 4.0 07/03/17 04:00 98 07/03/17 00:00 98.4 20 121/70 100 Nasal Cannula 4.0 07/03/17 00:00 94 07/02/17 21:20 99 135/55 07/02/17 20:00 97.9 93 20 135/74 100 Nasal Cannula 4.0 07/02/17 20:00 86 07/02/17 19:42 92 18 97 Nasal Cannula 4.0 36 07/02/17 19:33 90 18 Nasal Cannula 4.0 36 07/02/17 19:33 94 Nasal Cannula 4.0 36 07/02/17 19:33 90 18 94 Nasal Cannula 4.0 36 07/02/17 19:33 Nasal Cannula 4.0 36 07/02/17 18:15 98.1 93 19 103/63 Nasal Cannula 4.0 07/02/17 16:00 89 07/02/17 13:58 100.0 66 21 118/56 94 Simple Mask 4.0 07/02/17 13:20 100.0 66 21 118/62 94 Simple Mask 4.0 Laboratory Tests 07/02/17 14:01: Urine Color Yellow, Urine Appearance Slightly cloudy, Urine pH 7, Urine Specific [place] 1.010, Urine Protein 2+H, Urine Glucose (UA) Negative, Urine Ketones 1+H, Urine Occult Blood 5+H, Urine Nitrite PositiveH, Urine Bilirubin Negative, Urine Urobilinogen 4H, Urine Leukocyte Esterase 3+H, Urine RBC 20-30H , Urine WBC 5-10H, Urine Squamous Epithelial Cells Occasional, Urine Bacteria ManyH 07/03/17 09:40: White Blood Count 18.3#H, Red Blood Count 3.59L, Hemoglobin 11.7L, Hematocrit 36.5L, Mean Corpuscular Volume 102H, Mean Corpuscular Hemoglobin 32.6H, Mean Corpuscular Hemoglobin Concent 32.0, Red Cell Distribution Width 11.1L, Platelet Count 201, Mean Platelet Volume 7.0, Neutrophils (%) (Auto) , Lymphocytes (%) (Auto) , Monocytes (%) (Auto) , Eosinophils (%) (Auto) , Basophils (%) (Auto) , Differential Total Cells Counted 100, Neutrophils % ( Manual) 81H, Lymphocytes % (Manual) 8L, Monocytes % (Manual) 1, Eosinophils % ( Manual) 0, Basophils % (Manual) 0, Band Neutrophils 10H, Platelet Estimate Adequate, Platelet Morphology Normal, Sodium Level 134#L, Potassium Level 4.0, Chloride Level 101, Carbon Dioxide Level 26, Anion Gap 7, Blood Urea Nitrogen 27H, Creatinine 0.7, Estimat Glomerular Filtration Rate , Glucose Level 133H, Uric Acid 3.3, Calcium Level 8.6, Phosphorus Level 2.0L, Magnesium Level 1.8, Total Bilirubin 1.2H, Direct Bilirubin 0.9H, Gamma Glutamyl Transpeptidase 83, Aspartate Amino Transf (AST/SGOT) 78H, Alanine Aminotransferase (ALT/SGPT) 72, Alkaline Phosphatase 68, C-Reactive Protein, Quantitative 11.8H, Pro-B-Type Natriuretic Peptide 2670H, Total Protein 6.8, Albumin 2.6L, Globulin 4.2, Albumin/Globulin Ratio 0.6L, Triglycerides Level 22, Cholesterol Level 72, LDL Cholesterol 29, HDL Cholesterol 45, Cholesterol/HDL Ratio 1.6L, Vitamin B12 Level 655, Folate 18.3H, Thyroid Stimulating Hormone (TSH) 3.189 Height (Feet): 5 Height (Inches): 4.00 Weight (Pounds): 110 JORDEN VARGAS Jul 03, 2017 12:29
--- NOTE | 2017-07-03 12:48 | Pulmonology Progress Note ---
Assessment/Plan Problems: (1) Gastrointestinal hemorrhage (2) S/P percutaneous endoscopic gastrostomy (PEG) tube placement (3) Hypernatremia (4) Hematuria (5) HTN (hypertension) (6) CAD (coronary artery disease) (7) Dementia Assessment/Plan GI evaluation npo check electrolytes abx check cultures Subjective ROS Limited/Unobtainable: Yes Allergies: Coded Allergies: NO KNOWN DRUG ALLERGIES (Unverified Allergy, Unknown, 09/20/15) Objective Last 24 Hour Vital Signs Date Time Temp Pulse Resp B/P (MAP) Pulse Ox O2 Delivery O2 Flow Rate FiO2 07/03/17 08:58 102 108/61 07/03/17 08:26 94 20 97 Nasal Cannula 4.0 36 07/03/17 08:18 92 20 95 Nasal Cannula 4.0 36 07/03/17 08:18 95 Nasal Cannula 4.0 36 07/03/17 08:18 Nasal Cannula 4.0 36 07/03/17 08:00 97.5 92 20 108/61 90 Room Air 07/03/17 04:00 97.7 97 18 114/69 100 Nasal Cannula 4.0 07/03/17 04:00 98 07/03/17 00:00 98.4 20 121/70 100 Nasal Cannula 4.0 07/03/17 00:00 94 07/02/17 21:20 99 135/55 07/02/17 20:00 97.9 93 20 135/74 100 Nasal Cannula 4.0 07/02/17 20:00 86 07/02/17 19:42 92 18 97 Nasal Cannula 4.0 36 07/02/17 19:33 90 18 Nasal Cannula 4.0 36 07/02/17 19:33 94 Nasal Cannula 4.0 36 07/02/17 19:33 90 18 94 Nasal Cannula 4.0 36 07/02/17 19:33 Nasal Cannula 4.0 36 07/02/17 18:15 98.1 93 19 103/63 Nasal Cannula 4.0 07/02/17 16:00 89 07/02/17 13:58 100.0 66 21 118/56 94 Simple Mask 4.0 07/02/17 13:20 100.0 66 21 118/62 94 Simple Mask 4.0 General Appearance: cachetic HEENT: normocephalic, atraumatic Respiratory/Chest: chest wall non-tender, lungs clear, chest wall tender Cardiovascular: normal rate Abdomen: normal bowel sounds, soft, non tender Genitourinary: normal external genitalia Extremities: no clubbing Skin: no rash Neurologic/Psychiatric: animal nutritionist II-XII grossly normal Microbiology Date/Time Source Procedure Growth Status 07/02/17 14:01 Urine,Clean Catch Urine Culture - Preliminary Gram Negative Bacillus 1 Resulted Laboratory Tests 07/02/17 14:01: Urine Color Yellow, Urine Appearance Slightly cloudy, Urine pH 7, Urine Specific [place] 1.010, Urine Protein 2+H, Urine Glucose (UA) Negative, Urine Ketones 1+H, Urine Occult Blood 5+H, Urine Nitrite PositiveH, Urine Bilirubin Negative, Urine Urobilinogen 4H, Urine Leukocyte Esterase 3+H, Urine RBC 20-30H , Urine WBC 5-10H, Urine Squamous Epithelial Cells Occasional, Urine Bacteria ManyH 07/03/17 09:40: White Blood Count 18.3#H, Red Blood Count 3.59L, Hemoglobin 11.7L, Hematocrit 36.5L, Mean Corpuscular Volume 102H, Mean Corpuscular Hemoglobin 32.6H, Mean Corpuscular Hemoglobin Concent 32.0, Red Cell Distribution Width 11.1L, Platelet Count 201, Mean Platelet Volume 7.0, Neutrophils (%) (Auto) , Lymphocytes (%) (Auto) , Monocytes (%) (Auto) , Eosinophils (%) (Auto) , Basophils (%) (Auto) , Differential Total Cells Counted 100, Neutrophils % ( Manual) 81H, Lymphocytes % (Manual) 8L, Monocytes % (Manual) 1, Eosinophils % ( Manual) 0, Basophils % (Manual) 0, Band Neutrophils 10H, Platelet Estimate Adequate, Platelet Morphology Normal, Sodium Level 134#L, Potassium Level 4.0, Chloride Level 101, Carbon Dioxide Level 26, Anion Gap 7, Blood Urea Nitrogen 27H, Creatinine 0.7, Estimat Glomerular Filtration Rate , Glucose Level 133H, Uric Acid 3.3, Calcium Level 8.6, Phosphorus Level 2.0L, Magnesium Level 1.8, Total Bilirubin 1.2H, Direct Bilirubin 0.9H, Gamma Glutamyl Transpeptidase 83, Aspartate Amino Transf (AST/SGOT) 78H, Alanine Aminotransferase (ALT/SGPT) 72, Alkaline Phosphatase 68, C-Reactive Protein, Quantitative 11.8H, Pro-B-Type Natriuretic Peptide 2670H, Total Protein 6.8, Albumin 2.6L, Globulin 4.2, Albumin/Globulin Ratio 0.6L, Triglycerides Level 22, Cholesterol Level 72, LDL Cholesterol 29, HDL Cholesterol 45, Cholesterol/HDL Ratio 1.6L, Vitamin B12 Level 655, Folate 18.3H, Thyroid Stimulating Hormone (TSH) 3.189 Current Medications Medications (Trade) Dose Ordered Sig/Jovanna Route PRN Reason Start Time Stop Time Status Last Admin Dose Admin Albuterol Sulfate (Proventil) 2.5 mg TIDRT HHN 07/02/17 19:00 07/07/17 18:59 07/03/17 08:16 Ceftriaxone Sodium 1 gm/ Dextrose 55 ml @ 110 mls/hr Q24H IVPB 07/02/17 18:00 07/09/17 17:59 07/02/17 18:22 Dextrose/Sodium Chloride 1,000 ml @ 50 mls/hr Q20H IV 07/03/17 13:00 08/02/17 12:59 Haloperidol Lactate (Haldol) 2 mg Q4H PRN IM Agitation 07/02/17 17:00 08/01/17 16:59 Heparin Sodium (Porcine) (Heparin 5000 units/ml) 5,000 units EVERY 12 HOURS SUBQ 07/02/17 21:00 08/01/17 20:59 07/03/17 08:52 Metoprolol Tartrate (Lopressor) 25 mg Q12HR GT 07/03/17 21:00 08/02/17 20:59 Pantoprazole (Protonix) 40 mg EVERY 12 HOURS IVP 07/02/17 21:00 08/01/17 20:59 07/03/17 08:41 Sodium Phosphate 15 mm/Sodium Chloride 280 ml @ 70.273 mls/ hr ONCE ONCE IVPB 07/03/17 14:00 07/03/17 17:59 DAVID SERVIN Jul 03, 2017 12:48
[2017-07-03] MEDS ORDERED: D5NS 1,000 ML IV SCH ×2 (13:00→14:00)
[2017-07-03] MEDS ORDERED: Sodium Phosphate 15 MM in NS 275 ML IVPB ONE ×4 (14:00)
[2017-07-03 15:51] VITALS: BP 123/67
[2017-07-03] MEDS ORDERED: Haloperidol 5mg/ml Inj IM PRN (17:00)
[2017-07-03] MEDS: cefTRIAXone 1 GM in D5W 55 ML IVPB SCH (18:20)
[2017-07-03 20:00] VITALS: BP 136/89
[2017-07-03] MEDS: Metoprolol 25mg tab GT SCH (20:37)
[2017-07-03] MEDS ORDERED: Heparin 5000 units/ml inj SUBQ SCH (21:00)
[2017-07-03] MEDS ORDERED: Metoprolol 25mg tab GT SCH (21:00)
[2017-07-04] VITALS (7 sets, daily range): BP systolic 120–151; BP diastolic 51–85
--- NOTE | 2017-07-04 01:45 | Consultation ---
DATE OF CONSULTATION: 07/03/2017 CONSULTING PHYSICIAN: Isaiah Rdz M.D. REASON FOR CONSULTATION: Gross hematuria. The patient was admitted to the hospital with gastrointestinal bleeding. HISTORY OF PRESENT ILLNESS: The patient is an 82-year-old man, [facility] patient, presents with coffee-ground emesis. Nelson catheter was placed. He developed some mild gross hematuria. PAST MEDICAL HISTORY: Significant for status post percutaneous endoscopic gastrostomy, dementia, coronary artery disease, and hypertension. ALLERGIES: No known allergies. MEDICATIONS: He is on acetaminophen and albuterol. REVIEW OF SYMPTOMS: The patient is unresponsive and cannot obtain review of symptoms. PHYSICAL EXAMINATION: HEENT: He is cachectic and normocephalic. RESPIRATORY: Chest wall, nontender. BREASTS: No masses. CARDIOVASCULAR: Normal peripheral pulses. ABDOMEN: Soft and nontender. Nelson catheter is in place. SCROTAL EXAM: Normal. RECTAL EXAM: Normal. LABORATORY AND DIAGNOSTIC DATA: Urine has a slight tinge of blood in the tubing yellow. His laboratory work, his white count is 7.7 and hematocrit 40.7. His urine culture shows gram-negative bacilli. ASSESSMENT AND PLAN: The patient has mild gross hematuria. I would recommend to keep the Nelson catheter. Give him oral intravenous antibiotics. Stop heparin at this point to wait until the hematuria resolves. I will follow this patient with you. Thanks for the consultation. Isaiah Rdz M.D. DR: MIA/Stephany JOB#: [id number] CC:
[2017-07-04] MEDS: Albuterol ud Inhalation HHN SCH ×3 (07:23→19:28)
--- NOTE | 2017-07-04 08:13 | General Progress Note ---
Assessment/Plan Status: stable Assessment/Plan status: coffee ground vomitus PEG UTI, with mild henmaturia Dehydration , High Na MalNutrition Plan: labs in am stop IV fluid Protonix IV Urine c/s- pending final HHN Rocephin Up GT feeding Subjective ROS Limited/Unobtainable: No Allergies: Coded Allergies: NO KNOWN DRUG ALLERGIES (Unverified Allergy, Unknown, 09/20/15) Objective Last 24 Hour Vital Signs Date Time Temp Pulse Resp B/P (MAP) Pulse Ox O2 Delivery O2 Flow Rate FiO2 07/04/17 07:32 91 18 99 Nasal Cannula 3.0 32 07/04/17 07:24 96 Nasal Cannula 3.0 32 07/04/17 07:24 81 16 96 Nasal Cannula 3.0 32 07/04/17 07:24 Nasal Cannula 3.0 32 07/04/17 04:00 97.9 87 20 151/81 100 Nasal Cannula 4.0 07/04/17 00:00 97.7 81 18 136/85 99 Nasal Cannula 4.0 07/03/17 20:37 89 136/67 07/03/17 20:13 89 18 99 Nasal Cannula 3.0 32 07/03/17 20:04 98 Nasal Cannula 3.0 32 07/03/17 20:04 88 18 98 Nasal Cannula 3.0 32 07/03/17 20:04 Nasal Cannula 4.0 36 07/03/17 20:00 97.7 87 20 136/89 99 Nasal Cannula 4.0 07/03/17 15:51 97.5 89 21 123/67 100 Nasal Cannula 2.0 07/03/17 13:04 92 22 97 Nasal Cannula 4.0 36 07/03/17 12:54 91 20 95 Nasal Cannula 4.0 36 07/03/17 12:00 97.7 93 20 112/63 95 Room Air 07/03/17 08:58 102 108/61 07/03/17 08:26 94 20 97 Nasal Cannula 4.0 36 07/03/17 08:18 92 20 95 Nasal Cannula 4.0 36 07/03/17 08:18 95 Nasal Cannula 4.0 36 07/03/17 08:18 Nasal Cannula 4.0 36 Laboratory Tests 07/03/17 09:40: White Blood Count 18.3#H, Red Blood Count 3.59L, Hemoglobin 11.7L, Hematocrit 36.5L, Mean Corpuscular Volume 102H, Mean Corpuscular Hemoglobin 32.6H, Mean Corpuscular Hemoglobin Concent 32.0, Red Cell Distribution Width 11.1L, Platelet Count 201, Mean Platelet Volume 7.0, Neutrophils (%) (Auto) , Lymphocytes (%) (Auto) , Monocytes (%) (Auto) , Eosinophils (%) (Auto) , Basophils (%) (Auto) , Differential Total Cells Counted 100, Neutrophils % ( Manual) 81H, Lymphocytes % (Manual) 8L, Monocytes % (Manual) 1, Eosinophils % ( Manual) 0, Basophils % (Manual) 0, Band Neutrophils 10H, Platelet Estimate Adequate, Platelet Morphology Normal, Sodium Level 134#L, Potassium Level 4.0, Chloride Level 101, Carbon Dioxide Level 26, Anion Gap 7, Blood Urea Nitrogen 27H, Creatinine 0.7, Estimat Glomerular Filtration Rate , Glucose Level 133H, Uric Acid 3.3, Calcium Level 8.6, Phosphorus Level 2.0L, Magnesium Level 1.8, Total Bilirubin 1.2H, Direct Bilirubin 0.9H, Gamma Glutamyl Transpeptidase 83, Aspartate Amino Transf (AST/SGOT) 78H, Alanine Aminotransferase (ALT/SGPT) 72, Alkaline Phosphatase 68, C-Reactive Protein, Quantitative 11.8H, Pro-B-Type Natriuretic Peptide 2670H, Total Protein 6.8, Albumin 2.6L, Globulin 4.2, Albumin/Globulin Ratio 0.6L, Triglycerides Level 22, Cholesterol Level 72, LDL Cholesterol 29, HDL Cholesterol 45, Cholesterol/HDL Ratio 1.6L, Vitamin B12 Level 655, Folate 18.3H, Thyroid Stimulating Hormone (TSH) 3.189 Height (Feet): 5 Height (Inches): 4.00 Weight (Pounds): 110 General Appearance: no apparent distress, other - tolerating feeding Respiratory/Chest: decreased breath sounds Objective no change in [place] JORDEN VARGAS Jul 04, 2017 08:13
--- NOTE | 2017-07-04 09:07 | Pulmonology Progress Note ---
Assessment/Plan Problems: (1) Gastrointestinal hemorrhage (2) S/P percutaneous endoscopic gastrostomy (PEG) tube placement (3) Hypernatremia (4) Hematuria (5) HTN (hypertension) (6) CAD (coronary artery disease) (7) Dementia Assessment/Plan tolerating feeding ON Ceftriaxone check electrolytes abx check cultures Subjective ROS Limited/Unobtainable: Yes Interval Events: not much chagne, looks cachectic , severly ill Allergies: Coded Allergies: NO KNOWN DRUG ALLERGIES (Unverified Allergy, Unknown, 09/20/15) Objective Last 24 Hour Vital Signs Date Time Temp Pulse Resp B/P (MAP) Pulse Ox O2 Delivery O2 Flow Rate FiO2 07/04/17 07:32 91 18 99 Nasal Cannula 3.0 32 07/04/17 07:24 96 Nasal Cannula 3.0 32 07/04/17 07:24 81 16 96 Nasal Cannula 3.0 32 07/04/17 07:24 Nasal Cannula 3.0 32 07/04/17 04:00 97.9 87 20 151/81 100 Nasal Cannula 4.0 07/04/17 00:00 97.7 81 18 136/85 99 Nasal Cannula 4.0 07/03/17 20:37 89 136/67 07/03/17 20:13 89 18 99 Nasal Cannula 3.0 32 07/03/17 20:04 98 Nasal Cannula 3.0 32 07/03/17 20:04 88 18 98 Nasal Cannula 3.0 32 07/03/17 20:04 Nasal Cannula 4.0 36 07/03/17 20:00 97.7 87 20 136/89 99 Nasal Cannula 4.0 07/03/17 15:51 97.5 89 21 123/67 100 Nasal Cannula 2.0 07/03/17 13:04 92 22 97 Nasal Cannula 4.0 36 07/03/17 12:54 91 20 95 Nasal Cannula 4.0 36 07/03/17 12:00 97.7 93 20 112/63 95 Room Air General Appearance: cachetic HEENT: normocephalic, atraumatic Respiratory/Chest: chest wall non-tender, lungs clear Cardiovascular: normal peripheral pulses, normal rate Abdomen: normal bowel sounds, no organomegaly Genitourinary: normal external genitalia Skin: no rash Microbiology Date/Time Source Procedure Growth Status 07/02/17 14:01 Urine,Clean Catch Urine Culture - Preliminary Gram Negative Bacillus 1 Resulted Laboratory Tests 07/03/17 09:40: White Blood Count 18.3#H, Red Blood Count 3.59L, Hemoglobin 11.7L, Hematocrit 36.5L, Mean Corpuscular Volume 102H, Mean Corpuscular Hemoglobin 32.6H, Mean Corpuscular Hemoglobin Concent 32.0, Red Cell Distribution Width 11.1L, Platelet Count 201, Mean Platelet Volume 7.0, Neutrophils (%) (Auto) , Lymphocytes (%) (Auto) , Monocytes (%) (Auto) , Eosinophils (%) (Auto) , Basophils (%) (Auto) , Differential Total Cells Counted 100, Neutrophils % ( Manual) 81H, Lymphocytes % (Manual) 8L, Monocytes % (Manual) 1, Eosinophils % ( Manual) 0, Basophils % (Manual) 0, Band Neutrophils 10H, Platelet Estimate Adequate, Platelet Morphology Normal, Sodium Level 134#L, Potassium Level 4.0, Chloride Level 101, Carbon Dioxide Level 26, Anion Gap 7, Blood Urea Nitrogen 27H, Creatinine 0.7, Estimat Glomerular Filtration Rate , Glucose Level 133H, Uric Acid 3.3, Calcium Level 8.6, Phosphorus Level 2.0L, Magnesium Level 1.8, Total Bilirubin 1.2H, Direct Bilirubin 0.9H, Gamma Glutamyl Transpeptidase 83, Aspartate Amino Transf (AST/SGOT) 78H, Alanine Aminotransferase (ALT/SGPT) 72, Alkaline Phosphatase 68, C-Reactive Protein, Quantitative 11.8H, Pro-B-Type Natriuretic Peptide 2670H, Total Protein 6.8, Albumin 2.6L, Globulin 4.2, Albumin/Globulin Ratio 0.6L, Triglycerides Level 22, Cholesterol Level 72, LDL Cholesterol 29, HDL Cholesterol 45, Cholesterol/HDL Ratio 1.6L, Vitamin B12 Level 655, Folate 18.3H, Thyroid Stimulating Hormone (TSH) 3.189 Current Medications Medications (Trade) Dose Ordered Sig/Jovanna Route PRN Reason Start Time Stop Time Status Last Admin Dose Admin Albuterol Sulfate (Proventil) 2.5 mg TIDRT HHN 07/03/17 19:00 07/07/17 18:59 07/04/17 07:23 Ceftriaxone Sodium 1 gm/ Dextrose 55 ml @ 110 mls/hr Q24H IVPB 07/03/17 18:00 07/09/17 17:59 07/03/17 18:20 Haloperidol Lactate (Haldol) 2 mg Q4H PRN IM Agitation 07/03/17 17:00 08/01/17 16:59 Metoprolol Tartrate (Lopressor) 25 mg Q12HR GT 07/03/17 21:00 08/02/17 20:59 07/03/17 20:37 Pantoprazole (Protonix) 40 mg EVERY 12 HOURS IVP 07/03/17 21:00 08/01/17 20:59 07/03/17 20:37 DAVID SERVIN Jul 04, 2017 09:07
[2017-07-04] MEDS: Metoprolol 25mg tab GT SCH ×2 (09:20→21:10)
[2017-07-04] MEDS: Pantoprazole Inj IVP SCH ×2 (09:21→21:11)
[2017-07-04] MEDS ORDERED: Tubing IV Secondary IV ONE (09:47)
[2017-07-04] MEDS ORDERED: NS Irrig 1000ml ONE (09:47)
[2017-07-04 14:13] LABS: APPEARANCE,URINE CLOUDY; KETONES,URINE NEGATIVE (NEGATIVE); LEUKOCYTE ESTERASE ,URINE 2+ (NEGATIVE); NITRITE,URINE NEGATIVE (NEGATIVE); PH,URINE 6 (4.5-8.0); PROTEIN,URINE 2+ (NEGATIVE); UROBILINOGEN,URINE 8 MG/DL (0.0-1.0)
[2017-07-04 14:53] LABS: BACTERIA,URINE FEW /HPF; ICTOTEST NEGATIVE; MUCUS,URINE MODERATE /LPF (NONE/OCC); RBC,URINE 15-20 /HPF (0 - 0); SQUAMOUS EPITHELIAL CELL,UR FEW /LPF (NONE/OCC)
[2017-07-04] MEDS ORDERED: D5NS 1000ml IV ONE ×2 (15:21→16:13)
[2017-07-04] MEDS ORDERED: Sterile Water Irrig 1000ml IRRIG ONE (16:13)
[2017-07-04] MEDS: cefTRIAXone 1 GM in D5W 55 ML IVPB SCH (18:03)
[2017-07-05] VITALS: BP 131/52
[2017-07-05 04:00] VITALS: BP 135/56
[2017-07-05] MEDS: Albuterol ud Inhalation HHN SCH ×3 (07:42→19:47)
[2017-07-05 08:01] VITALS: BP 127/65
[2017-07-05 08:26] LABS: BASOPHILS % (AUTO) 0.3 % (0.0-2.0); LYMPHOCYTES % (AUTO) 10.9 % (20.0-45.0); MEAN CORPUSCULAR HEMOGLOBIN 34.1 PG (27.0-31.0); MEAN CORPUSCULAR VOLUME 101 FL (80-99); MEAN PLATELET VOLUME 7.3 FL (6.5-10.1); MONOCYTES % (AUTO) 7.2 % (1.0-10.0); NEUTROPHILS % (AUTO) 81.6 % (45.0-75.0); PLATELET COUNT 195 K/UL (150-450); RED BLOOD COUNT 3.33 M/UL (4.70-6.10); RED CELL DISTRIBUTION WIDTH 11.3 % (11.6-14.8); WHITE BLOOD COUNT 14.9 K/UL (4.8-10.8)
[2017-07-05 08:31] LABS: ALANINE AMINOTRANSFERASE 71 U/L (12-78); ALBUMIN/GLOBULIN RATIO 0.6 (1.0-2.7); ANION GAP 6 mmol/L (5-15); ASPARTATE AMINO TRANSFERASE 68 U/L (15-37); CALCIUM 8.3 MG/DL (8.5-10.1); CARBON DIOXIDE 28 MMOL/L (21-32); CHLORIDE 109 MMOL/L (98-107); CREATININE 0.6 MG/DL (0.55-1.30); MAGNESIUM 1.9 MG/DL (1.8-2.4); POTASSIUM 3.2 MMOL/L (3.5-5.1); SODIUM 143 MMOL/L (136-145); TOTAL PROTEIN 6.1 G/DL (6.4-8.2)
[2017-07-05] MEDS: Pantoprazole Inj IVP SCH ×2 (09:39→21:30)
[2017-07-05] MEDS: Metoprolol 25mg tab GT SCH ×2 (09:39→21:30)
--- NOTE | 2017-07-05 09:53 | General Progress Note ---
Assessment/Plan Status: stable Assessment/Plan status: coffee ground vomitus PEG UTI, with mild henmaturia Dehydration , High Na MalNutrition Plan: K Phos IV- DC in am with oral antibiotics labs in am stop IV fluid Protonix IV Urine c/s- pending final HHN Rocephin Up GT feeding Subjective ROS Limited/Unobtainable: No Constitutional: Reports: malaise Allergies: Coded Allergies: NO KNOWN DRUG ALLERGIES (Unverified Allergy, Unknown, 09/20/15) Objective Last 24 Hour Vital Signs Date Time Temp Pulse Resp B/P (MAP) Pulse Ox O2 Delivery O2 Flow Rate FiO2 07/05/17 09:39 92 127/65 07/05/17 08:01 97.6 92 19 127/65 92 Nasal Cannula 2.0 07/05/17 07:43 89 16 97 Nasal Cannula 3.0 32 07/05/17 07:38 95 Nasal Cannula 3.0 32 07/05/17 07:38 83 18 95 Nasal Cannula 3.0 32 07/05/17 07:38 Nasal Cannula 3.0 32 07/05/17 04:00 98.0 80 18 135/56 99 Nasal Cannula 2.0 07/05/17 00:00 98.4 84 20 131/52 100 Nasal Cannula 2.0 07/04/17 21:10 96 137/60 07/04/17 20:00 99.3 96 20 137/60 97 Nasal Cannula 2.0 07/04/17 19:37 90 16 98 Nasal Cannula 3.0 32 07/04/17 19:28 90 16 97 Nasal Cannula 3.0 32 07/04/17 19:27 97 Nasal Cannula 3.0 32 07/04/17 19:27 Nasal Cannula 3.0 32 07/04/17 16:00 98.2 85 18 142/65 99 Room Air 07/04/17 14:34 95 18 99 Nasal Cannula 3.0 32 07/04/17 14:08 82 16 98 Nasal Cannula 3.0 32 07/04/17 13:04 97.4 91 20 120/51 99 Room Air Laboratory Tests 07/04/17 12:40: Urine Color Yellow, Urine Appearance Cloudy, Urine pH 6, Urine Specific [place] 1.015, Urine Protein 2+H, Urine Glucose (UA) Negative, Urine Ketones Negative, Urine Occult Blood 5+H, Urine Nitrite Negative, Urine Bilirubin 1+H, Urine Ictotest Negative, Urine Urobilinogen 8H, Urine Leukocyte Esterase 2+H, Urine RBC 15-20H, Urine WBC 10-15H, Urine Squamous Epithelial Cells Few, Urine Bacteria Few, Urine Mucus ModerateH 07/05/17 06:29: White Blood Count 14.9H, Red Blood Count 3.33L, Hemoglobin 11.4L, Hematocrit 33.5L, Mean Corpuscular Volume 101H, Mean Corpuscular Hemoglobin 34.1H, Mean Corpuscular Hemoglobin Concent 34.0, Red Cell Distribution Width 11.3L, Platelet Count 195, Mean Platelet Volume 7.3, Neutrophils (%) (Auto) 81.6H, Lymphocytes (%) (Auto) 10.9L, Monocytes (%) (Auto) 7.2, Eosinophils (%) (Auto) 0.0, Basophils (%) (Auto) 0.3, Sodium Level 143, Potassium Level 3.2L, Chloride Level 109H, Carbon Dioxide Level 28, Anion Gap 6, Blood Urea Nitrogen 26H, Creatinine 0.6, Estimat Glomerular Filtration Rate , Glucose Level 153H, Uric Acid 2.0L, Calcium Level 8.3L, Phosphorus Level 1.0L, Magnesium Level 1.9, Total Bilirubin 0.7, Aspartate Amino Transf (AST/SGOT) 68H, Alanine Aminotransferase (ALT/SGPT) 71, Alkaline Phosphatase 117H, C-Reactive Protein, Quantitative 6.0H, Total Protein 6.1L, Albumin 2.2L, Globulin 3.9, Albumin/ Globulin Ratio 0.6L Height (Feet): 5 Height (Inches): 4.00 Weight (Pounds): 110 General Appearance: no apparent distress Cardiovascular: regular rhythm Respiratory/Chest: decreased breath sounds Abdomen: soft Objective no change in PE JORDEN VARGAS Jul 05, 2017 09:53
[2017-07-05] MEDS: Phospha 250 Neutral tab GT SCH ×3 (10:27→18:16)
[2017-07-05] MEDS ORDERED: Potassium Phosphate 30 MM in NS 275 ML IV ONE (11:00)
[2017-07-05 12:15] VITALS: BP 161/69
[2017-07-05] MEDS ORDERED: 1/2 NS 1000ml IV ONE (14:52)
[2017-07-05] MEDS: Metoclopramide 10mg/2ml Inj IVP SCH ×2 (15:02→22:25)
[2017-07-05 16:33] VITALS: BP 112/75
[2017-07-05] MEDS: cefTRIAXone 1 GM in D5W 55 ML IVPB SCH (18:16)
[2017-07-05 20:00] VITALS: BP 140/74
--- NOTE | 2017-07-05 21:17 | Pulmonology Progress Note ---
Assessment/Plan Problems: (1) Gastrointestinal hemorrhage (2) S/P percutaneous endoscopic gastrostomy (PEG) tube placement (3) Hypernatremia (4) Hematuria (5) HTN (hypertension) (6) CAD (coronary artery disease) (7) Dementia Assessment/Plan all noted and reviewed tolerating feeding ON Ceftriaxone check electrolytes abx check cultures Subjective ROS Limited/Unobtainable: Yes Allergies: Coded Allergies: NO KNOWN DRUG ALLERGIES (Unverified Allergy, Unknown, 09/20/15) Objective Last 24 Hour Vital Signs Date Time Temp Pulse Resp B/P (MAP) Pulse Ox O2 Delivery O2 Flow Rate FiO2 07/05/17 20:00 98.2 96 19 140/74 93 Nasal Cannula 07/05/17 19:57 93 16 99 Nasal Cannula 3.0 32 07/05/17 19:47 92 16 96 Nasal Cannula 3.0 32 07/05/17 19:47 Nasal Cannula 3.0 32 07/05/17 19:47 96 Nasal Cannula 3.0 32 07/05/17 16:33 97.9 103 22 112/75 95 Nasal Cannula 3.0 07/05/17 13:05 95 18 98 Nasal Cannula 3.0 32 07/05/17 13:00 102 16 95 Nasal Cannula 3.0 32 07/05/17 12:15 98.0 100 19 161/69 97 Nasal Cannula 2.0 07/05/17 09:39 92 127/65 07/05/17 08:01 97.6 92 19 127/65 92 Nasal Cannula 2.0 07/05/17 07:43 89 16 97 Nasal Cannula 3.0 32 07/05/17 07:38 95 Nasal Cannula 3.0 32 07/05/17 07:38 83 18 95 Nasal Cannula 3.0 32 07/05/17 07:38 Nasal Cannula 3.0 32 07/05/17 04:00 98.0 80 18 135/56 99 Nasal Cannula 2.0 07/05/17 00:00 98.4 84 20 131/52 100 Nasal Cannula 2.0 Intake and Output 07/05/17 07/06/17 19:00 07:00 Intake Total 900.0 ml Output Total 500 ml Balance 400.0 ml Free Water 120 ml IV Total 340.0 ml Tube Feeding 440 ml Output Urine Total 500 ml # Bowel Movements 1 Objective General Appearance: WD/WN, no apparent distress Lines, tubes and drains: peripheral, HEENT: normocephalic, anicteric Neck: non-tender, normal alignment Respiratory/Chest: chest wall non-tender, lungs clear Cardiovascular/Chest: normal rate, regular rhythm Abdomen: non tender, soft, Gtube in place Genitourinary/Rectal: normal genital exam, normal rectal exam Extremities: normal range of motion, non-pitting Microbiology Date/Time Source Procedure Growth Status 07/04/17 12:40 Urine,Clean Catch Urine Culture - Preliminary NO GROWTH Resulted Laboratory Tests 07/05/17 06:29: White Blood Count 14.9H, Red Blood Count 3.33L, Hemoglobin 11.4L, Hematocrit 33.5L, Mean Corpuscular Volume 101H, Mean Corpuscular Hemoglobin 34.1H, Mean Corpuscular Hemoglobin Concent 34.0, Red Cell Distribution Width 11.3L, Platelet Count 195, Mean Platelet Volume 7.3, Neutrophils (%) (Auto) 81.6H, Lymphocytes (%) (Auto) 10.9L, Monocytes (%) (Auto) 7.2, Eosinophils (%) (Auto) 0.0, Basophils (%) (Auto) 0.3, Sodium Level 143, Potassium Level 3.2L, Chloride Level 109H, Carbon Dioxide Level 28, Anion Gap 6, Blood Urea Nitrogen 26H, Creatinine 0.6, Estimat Glomerular Filtration Rate , Glucose Level 153H, Uric Acid 2.0L, Calcium Level 8.3L, Phosphorus Level 1.0L, Magnesium Level 1.9, Total Bilirubin 0.7, Aspartate Amino Transf (AST/SGOT) 68H, Alanine Aminotransferase (ALT/SGPT) 71, Alkaline Phosphatase 117H, C-Reactive Protein, Quantitative 6.0H, Total Protein 6.1L, Albumin 2.2L, Globulin 3.9, Albumin/ Globulin Ratio 0.6L Current Medications Medications (Trade) Dose Ordered Sig/Jovanna Route PRN Reason Start Time Stop Time Status Last Admin Dose Admin Albuterol Sulfate (Proventil) 2.5 mg TIDRT HHN 07/03/17 19:00 07/07/17 18:59 07/05/17 19:47 Ceftriaxone Sodium 1 gm/ Dextrose 55 ml @ 110 mls/hr Q24H IVPB 07/03/17 18:00 07/09/17 17:59 07/05/17 18:16 Haloperidol Lactate (Haldol) 2 mg Q4H PRN IM Agitation 07/03/17 17:00 08/01/17 16:59 Metoclopramide HCl (Reglan) 10 mg Q8HR IVP 07/05/17 14:30 08/04/17 14:29 07/05/17 15:02 Metoprolol Tartrate (Lopressor) 25 mg Q12HR GT 07/03/17 21:00 08/02/17 20:59 07/05/17 09:39 Pantoprazole (Protonix) 40 mg EVERY 12 HOURS IVP 07/03/17 21:00 08/01/17 20:59 07/05/17 09:39 Phosphorus (Phospha 250 Neutral) 250 mg THREE TIMES A DAY GT 07/05/17 10:00 08/04/17 09:59 07/05/17 18:16 DAVID SERVIN Jul 05, 2017 21:17
[2017-07-06] VITALS (8 sets, daily range): BP systolic 99–151; BP diastolic 49–71
[2017-07-06] MEDS: Metoclopramide 10mg/2ml Inj IVP SCH ×3 (05:29→21:27)
[2017-07-06 07:14] LABS: MEAN CORPUSCULAR HEMOGLOBIN 34.1 PG (27.0-31.0); MEAN CORPUSCULAR HGB CONC 33.7 G/DL (32.0-36.0); MEAN CORPUSCULAR VOLUME 101 FL (80-99); MEAN PLATELET VOLUME 7.2 FL (6.5-10.1); PLATELET COUNT 182 K/UL (150-450); RED CELL DISTRIBUTION WIDTH 11.4 % (11.6-14.8); WHITE BLOOD COUNT 14.4 K/UL (4.8-10.8)
[2017-07-06] MEDS: Albuterol ud Inhalation HHN SCH ×3 (07:35→19:00)
[2017-07-06 07:44] LABS: ALANINE AMINOTRANSFERASE 56 U/L (12-78); ALBUMIN/GLOBULIN RATIO 0.5 (1.0-2.7); ANION GAP 9 mmol/L (5-15); ASPARTATE AMINO TRANSFERASE 41 U/L (15-37); CALCIUM 8.4 MG/DL (8.5-10.1); CARBON DIOXIDE 26 MMOL/L (21-32); CHLORIDE 111 MMOL/L (98-107); CREATININE 0.8 MG/DL (0.55-1.30); CRP QUANT 9.6 mg/dL (0.00-0.90); MAGNESIUM 1.8 MG/DL (1.8-2.4); PHOSPHORUS 1.8 MG/DL (2.5-4.9); POTASSIUM 3.3 MMOL/L (3.5-5.1); SODIUM 146 MMOL/L (136-145); TOTAL PROTEIN 5.8 G/DL (6.4-8.2)
--- NOTE | 2017-07-06 08:28 | General Progress Note ---
Assessment/Plan Status: unchanged Status Narrative vomited again yesterday- WBCs up Assessment/Plan status: Basal Atx on admit likely pneumonia / aspiration coffee ground vomitus PEG UTI, with mild henmaturia Dehydration , High Na MalNutrition Plan: will start Zosyn- recheck CXR K Phos IV- DC in am with oral antibiotics Urine c/s- proteus HHN Up GT feeding Subjective ROS Limited/Unobtainable: No Constitutional: Reports: malaise, weakness Allergies: Coded Allergies: NO KNOWN DRUG ALLERGIES (Unverified Allergy, Unknown, 09/20/15) Objective Last 24 Hour Vital Signs Date Time Temp Pulse Resp B/P (MAP) Pulse Ox O2 Delivery O2 Flow Rate FiO2 07/06/17 07:39 100 16 99 Nasal Cannula 2.0 28 07/06/17 07:37 Nasal Cannula 2.0 28 07/06/17 07:30 98 16 94 Nasal Cannula 2.0 28 07/06/17 07:29 94 Nasal Cannula 3.0 32 07/06/17 04:22 98.0 90 19 131/70 98 Nasal Cannula 07/06/17 00:00 98.2 94 20 137/69 94 Nasal Cannula 2.0 07/05/17 21:30 96 140/74 07/05/17 20:00 98.2 96 19 140/74 93 Nasal Cannula 07/05/17 19:57 93 16 99 Nasal Cannula 3.0 32 07/05/17 19:47 92 16 96 Nasal Cannula 3.0 32 07/05/17 19:47 Nasal Cannula 3.0 32 07/05/17 19:47 96 Nasal Cannula 3.0 32 07/05/17 16:33 97.9 103 22 112/75 95 Nasal Cannula 3.0 07/05/17 13:05 95 18 98 Nasal Cannula 3.0 32 07/05/17 13:00 102 16 95 Nasal Cannula 3.0 32 07/05/17 12:15 98.0 100 19 161/69 97 Nasal Cannula 2.0 07/05/17 09:39 92 127/65 Current Medications Medications (Trade) Dose Ordered Sig/Jovanna Route PRN Reason Start Time Stop Time Status Last Admin Dose Admin Albuterol Sulfate (Proventil) 2.5 mg TIDRT HHN 07/03/17 19:00 07/07/17 18:59 07/06/17 07:35 Ceftriaxone Sodium 1 gm/ Dextrose 55 ml @ 110 mls/hr Q24H IVPB 07/03/17 18:00 07/09/17 17:59 07/05/17 18:16 Haloperidol Lactate (Haldol) 2 mg Q4H PRN IM Agitation 07/03/17 17:00 08/01/17 16:59 Metoclopramide HCl (Reglan) 10 mg Q8HR IVP 07/05/17 14:30 08/04/17 14:29 07/06/17 05:29 Metoprolol Tartrate (Lopressor) 25 mg Q12HR GT 07/03/17 21:00 08/02/17 20:59 07/05/17 21:30 Pantoprazole (Protonix) 40 mg EVERY 12 HOURS IVP 07/03/17 21:00 08/01/17 20:59 07/05/17 21:30 Phosphorus (Phospha 250 Neutral) 250 mg THREE TIMES A DAY GT 07/05/17 10:00 08/04/17 09:59 07/05/17 18:16 Potassium Phosphate 30 mm/ Sodium Chloride 285 ml @ 47.5 mls/hr ONCE ONCE IVPB 07/06/17 08:30 07/06/17 14:29 UNV Laboratory Tests 07/06/17 04:55: White Blood Count 14.4H, Red Blood Count 3.40L, Hemoglobin 11.6L, Hematocrit 34.4L, Mean Corpuscular Volume 101H, Mean Corpuscular Hemoglobin 34.1H, Mean Corpuscular Hemoglobin Concent 33.7, Red Cell Distribution Width 11.4L, Platelet Count 182, Mean Platelet Volume 7.2, Neutrophils (%) (Auto) , Lymphocytes (%) (Auto) , Monocytes (%) (Auto) , Eosinophils (%) (Auto) , Basophils (%) (Auto) , Neutrophils % (Manual) [Pending], Lymphocytes % (Manual) [Pending], Platelet Estimate [Pending], Platelet Morphology [Pending], Sodium Level 146H, Potassium Level 3.3L, Chloride Level 111H, Carbon Dioxide Level 26, Anion Gap 9, Blood Urea Nitrogen 28H, Creatinine 0.8, Estimat Glomerular Filtration Rate , Glucose Level 217H, Calcium Level 8.4L, Phosphorus Level 1.8L , Magnesium Level 1.8, Total Bilirubin 1.0, Aspartate Amino Transf (AST/SGOT) 41H, Alanine Aminotransferase (ALT/SGPT) 56, Alkaline Phosphatase 74, C- Reactive Protein, Quantitative 9.6H, Pro-B-Type Natriuretic Peptide 6448H, Total Protein 5.8L, Albumin 2.0L, Globulin 3.8, Albumin/Globulin Ratio 0.5L Height (Feet): 5 Height (Inches): 4.00 Weight (Pounds): 110 General Appearance: no apparent distress, lethargic Cardiovascular: normal rate Respiratory/Chest: decreased breath sounds Abdomen: soft, other - GT Objective no change in PE JORDEN VARGAS Jul 06, 2017 08:28
[2017-07-06 09:51] LABS: BAND NEUTROPHILS % (MANUAL) 6 % (0-8); BASOPHILS % (MANUAL) 0 % (0-2); EOSINOPHILS % (MANUAL) 0 % (0-3); LYMPHOCYTES % (MANUAL) 6 % (20-45); MACROCYTES 1+; NEUTROPHILS % (MANUAL) 84 % (45-75); PLATELET ESTIMATE ADEQUATE; PLATELET MORPHOLOGY NORMAL; TOTAL CELLS COUNTED 100
[2017-07-06] MEDS ORDERED: Potassium Phosphate 30 MM in NS 275 ML IV ONE (10:00)
[2017-07-06] MEDS: Phospha 250 Neutral tab GT SCH ×3 (10:04→19:05)
[2017-07-06] MEDS: Pantoprazole Inj IVP SCH (10:05)
[2017-07-06] MEDS: Metoprolol 25mg tab GT SCH ×2 (10:05→21:27)
[2017-07-06] MEDS: Piperacillin/Tazobactam 3.375 GM in D5W 55 ML IVPB SCH ×2 (10:34→21:27)
--- NOTE | 2017-07-06 13:39 | Diagnostic Imaging Report ---
Indication: COUGH Technique: One view of the chest Comparison: 07/02/2017 Findings: There is fairly extensive infiltrate in the left lung. This is a new finding. Right lung, bilateral pleural spaces are clear. Heart size is normal Impression: New finding of fairly extensive left lung infiltrate. Suspect pneumonia
--- NOTE | 2017-07-06 14:36 | Pulmonology Progress Note ---
Assessment/Plan Problems: (1) Gastrointestinal hemorrhage (2) S/P percutaneous endoscopic gastrostomy (PEG) tube placement (3) Hypernatremia (4) Hematuria (5) HTN (hypertension) (6) CAD (coronary artery disease) (7) Dementia Assessment/Plan wbc remains high Urine has Proteus sensitive to zosyn all noted and reviewed tolerating feeding ON Ceftriaxone check electrolytes check wbc in am Subjective ROS Limited/Unobtainable: No Constitutional: Reports: no symptoms HEENT: Repors: no symptoms Respiratory: Reports: no symptoms Allergies: Coded Allergies: NO KNOWN DRUG ALLERGIES (Unverified Allergy, Unknown, 09/20/15) Objective Last 24 Hour Vital Signs Date Time Temp Pulse Resp B/P (MAP) Pulse Ox O2 Delivery O2 Flow Rate FiO2 07/06/17 13:40 97 16 99 Nasal Cannula 2.0 28 07/06/17 13:30 94 16 Nasal Cannula 2.0 28 07/06/17 12:00 98.9 87 20 119/61 94 Nasal Cannula 2.0 07/06/17 10:05 102 125/61 07/06/17 09:56 102 125/61 07/06/17 08:00 98.8 105 21 99/52 92 Nasal Cannula 07/06/17 07:39 100 16 99 Nasal Cannula 2.0 28 07/06/17 07:37 Nasal Cannula 2.0 28 07/06/17 07:30 98 16 94 Nasal Cannula 2.0 28 07/06/17 07:29 94 Nasal Cannula 3.0 32 07/06/17 04:22 98.0 90 19 131/70 98 Nasal Cannula 07/06/17 00:00 98.2 94 20 137/69 94 Nasal Cannula 2.0 07/05/17 21:30 96 140/74 07/05/17 20:00 98.2 96 19 140/74 93 Nasal Cannula 07/05/17 19:57 93 16 99 Nasal Cannula 3.0 32 07/05/17 19:47 92 16 96 Nasal Cannula 3.0 32 07/05/17 19:47 Nasal Cannula 3.0 32 07/05/17 19:47 96 Nasal Cannula 3.0 32 07/05/17 16:33 97.9 103 22 112/75 95 Nasal Cannula 3.0 Intake and Output 07/06/17 07/07/17 19:00 07:00 Intake Total 230 ml Balance 230 ml Tube Feeding 200 ml Blood Product 30 ml Objective General Appearance: WD/WN, no apparent distress Lines, tubes and drains: peripheral, HEENT: normocephalic, anicteric Neck: non-tender, normal alignment Respiratory/Chest: chest wall non-tender, lungs clear Cardiovascular/Chest: normal rate, regular rhythm Abdomen: non tender, soft, Gtube in place Genitourinary/Rectal: normal genital exam, normal rectal exam Extremities: normal range of motion, non-pitting Microbiology Date/Time Source Procedure Growth Status 07/04/17 12:40 Urine,Clean Catch Urine Culture - Preliminary NO GROWTH AFTER 24 HOURS Resulted Laboratory Tests 07/06/17 04:55: White Blood Count 14.4H, Red Blood Count 3.40L, Hemoglobin 11.6L, Hematocrit 34.4L, Mean Corpuscular Volume 101H, Mean Corpuscular Hemoglobin 34.1H, Mean Corpuscular Hemoglobin Concent 33.7, Red Cell Distribution Width 11.4L, Platelet Count 182, Mean Platelet Volume 7.2, Neutrophils (%) (Auto) , Lymphocytes (%) (Auto) , Monocytes (%) (Auto) , Eosinophils (%) (Auto) , Basophils (%) (Auto) , Differential Total Cells Counted 100, Neutrophils % ( Manual) 84H, Lymphocytes % (Manual) 6L, Monocytes % (Manual) 4, Eosinophils % ( Manual) 0, Basophils % (Manual) 0, Band Neutrophils 6, Platelet Estimate Adequate, Platelet Morphology Normal, Macrocytosis 1+, Sodium Level 146H, Potassium Level 3.3L, Chloride Level 111H, Carbon Dioxide Level 26, Anion Gap 9 , Blood Urea Nitrogen 28H, Creatinine 0.8, Estimat Glomerular Filtration Rate , Glucose Level 217H, Calcium Level 8.4L, Phosphorus Level 1.8L, Magnesium Level 1.8, Total Bilirubin 1.0, Aspartate Amino Transf (AST/SGOT) 41H, Alanine Aminotransferase (ALT/SGPT) 56, Alkaline Phosphatase 74, C-Reactive Protein, Quantitative 9.6H, Pro-B-Type Natriuretic Peptide 6448H, Total Protein 5.8L, Albumin 2.0L, Globulin 3.8, Albumin/Globulin Ratio 0.5L Current Medications Medications (Trade) Dose Ordered Sig/Jovanna Route PRN Reason Start Time Stop Time Status Last Admin Dose Admin Albuterol Sulfate (Proventil) 2.5 mg TIDRT HHN 07/03/17 19:00 07/07/17 18:59 07/06/17 13:31 Haloperidol Lactate (Haldol) 2 mg Q4H PRN IM Agitation 07/03/17 17:00 08/01/17 16:59 Metoclopramide HCl (Reglan) 10 mg Q8HR IVP 07/05/17 14:30 08/04/17 14:29 07/06/17 05:29 Metoprolol Tartrate (Lopressor) 25 mg Q12HR GT 07/03/17 21:00 08/02/17 20:59 07/06/17 10:05 Pantoprazole (Protonix) 40 mg DAILY IVP 07/06/17 09:00 08/01/17 20:59 07/06/17 10:05 Phosphorus (Phospha 250 Neutral) 250 mg THREE TIMES A DAY GT 07/05/17 10:00 08/04/17 09:59 07/06/17 10:04 Piperacillin Sod/ Tazobactam Sod 3.375 gm/Dextrose 55 ml @ 13.75 mls/ hr Q8HR IVPB 07/06/17 09:30 07/13/17 09:29 07/06/17 10:34 Potassium Phosphate 30 mm/ Sodium Chloride 285 ml @ 47.5 mls/hr ONCE ONCE IV 07/06/17 10:00 07/06/17 15:59 DAVID SERVIN Jul 06, 2017 14:36
--- NOTE | 2017-07-06 19:41 | Consultation ---
History of Present Illness General Chief Complaint: Gastrointestinal Bleed Reason for Consultation: inpatient management Present Illness HPI 82-year-old male, in vegetative state in [facility] , DNR and DNI, who had coffee-ground vomitus. the pt was calm during the eval. not responds to questions cognitive impairment Allergies: Coded Allergies: NO KNOWN DRUG ALLERGIES (Unverified Allergy, Unknown, 09/20/15) Medication History Scheduled Petrolatum,White/Lanolin (Vitamin A & D Ointment), 113 GM TP DAILY, (Reported) Scheduled PRN Acetaminophen 160MG/5ML* (Acetaminophen*), 20 ML ORAL Q6HR PRN for For Pain, ( Reported) Albuterol Sulfate* (Albuterol Sulfate Hhn*), 3 ML INH Q6H PRN for Shortness of Breath, (Reported) Patient History Limited by: medical condition History Provided By: Patient, Medical Record, PMD Healthcare decision maker Resuscitation status Do Not Resuscitate Advanced Directive on File Yes Past Medical/Surgical History Past Medical/Surgical History: (1) Episode of generalized weakness (2) Abnormal LFTs (3) Fever (4) Leukocytosis (5) Pneumonia (6) Hyponatremia (7) Sepsis (8) sep (9) Hypoalbuminemia (10) Anemia (11) Malfunction of gastrostomy tube (12) GI bleed (13) Gastrointestinal hemorrhage (14) Dehydration (15) Hypochloremia (16) Hypernatremia (17) UTI (urinary tract infection) (18) CAD (coronary artery disease) (19) Dementia (20) HTN (hypertension) (21) Hematuria Physical Exam Last 24 Hour Vital Signs Date Time Temp Pulse Resp B/P (MAP) Pulse Ox O2 Delivery O2 Flow Rate FiO2 07/06/17 16:00 97.2 101 19 151/71 94 Nasal Cannula 2.0 07/06/17 13:40 97 16 99 Nasal Cannula 2.0 07/06/17 13:30 94 16 Nasal Cannula 2.0 07/06/17 12:00 98.9 87 20 119/61 94 Nasal Cannula 2.0 07/06/17 10:05 102 125/61 07/06/17 09:56 102 125/61 07/06/17 08:00 98.8 105 21 99/52 92 Nasal Cannula 07/06/17 07:39 100 16 99 Nasal Cannula 2.0 28 07/06/17 07:37 Nasal Cannula 2.0 28 07/06/17 07:30 98 16 94 Nasal Cannula 2.0 28 07/06/17 07:29 94 Nasal Cannula 3.0 32 07/06/17 04:22 98.0 90 19 131/70 98 Nasal Cannula 07/06/17 00:00 98.2 94 20 137/69 94 Nasal Cannula 2.0 07/05/17 21:30 96 140/74 07/05/17 20:00 98.2 96 19 140/74 93 Nasal Cannula 07/05/17 19:57 93 16 99 Nasal Cannula 3.0 32 07/05/17 19:47 92 16 96 Nasal Cannula 3.0 32 07/05/17 19:47 Nasal Cannula 3.0 32 07/05/17 19:47 96 Nasal Cannula 3.0 32 Intake and Output 07/06/17 07/07/17 19:00 07:00 Intake Total 230 ml Output Total 275 ml Balance -45 ml Tube Feeding 200 ml Blood Product 30 ml Output Urine Total 275 ml # Bowel Movements 1 Laboratory Tests Test 07/06/17 04:55 White Blood Count 14.4 K/UL (4.8-10.8) H Red Blood Count 3.40 M/UL (4.70-6.10) L Hemoglobin 11.6 G/DL (14.2-18.0) L Hematocrit 34.4 % (42.0-52.0) L Mean Corpuscular Volume 101 FL (80-99) H Mean Corpuscular Hemoglobin 34.1 PG (27.0-31.0) H Mean Corpuscular Hemoglobin Concent 33.7 G/DL (32.0-36.0) Red Cell Distribution Width 11.4 % (11.6-14.8) L Platelet Count 182 K/UL (150-450) Mean Platelet Volume 7.2 FL (6.5-10.1) Neutrophils (%) (Auto) % (45.0-75.0) Lymphocytes (%) (Auto) % (20.0-45.0) Monocytes (%) (Auto) % (1.0-10.0) Eosinophils (%) (Auto) % (0.0-3.0) Basophils (%) (Auto) % (0.0-2.0) Differential Total Cells Counted 100 Neutrophils % (Manual) 84 % (45-75) H Lymphocytes % (Manual) 6 % (20-45) L Monocytes % (Manual) 4 % (1-10) Eosinophils % (Manual) 0 % (0-3) Basophils % (Manual) 0 % (0-2) Band Neutrophils 6 % (0-8) Platelet Estimate Adequate Platelet Morphology Normal Macrocytosis 1+ Sodium Level 146 MMOL/L (136-145) H Potassium Level 3.3 MMOL/L (3.5-5.1) L Chloride Level 111 MMOL/L (98-107) H Carbon Dioxide Level 26 MMOL/L (21-32) Anion Gap 9 mmol/L (5-15) Blood Urea Nitrogen 28 mg/dL (7-18) H Creatinine 0.8 MG/DL (0.55-1.30) Estimat Glomerular Filtration Rate mL/min (>60) Glucose Level 217 MG/DL (74-106) H Calcium Level 8.4 MG/DL (8.5-10.1) L Phosphorus Level 1.8 MG/DL (2.5-4.9) L Magnesium Level 1.8 MG/DL (1.8-2.4) Total Bilirubin 1.0 MG/DL (0.2-1.0) Aspartate Amino Transf (AST/SGOT) 41 U/L (15-37) H Alanine Aminotransferase (ALT/SGPT) 56 U/L (12-78) Alkaline Phosphatase 74 U/L (46-116) C-Reactive Protein, Quantitative 9.6 mg/dL (0.00-0.90) H Pro-B-Type Natriuretic Peptide 6448 pg/mL (0-125) H Total Protein 5.8 G/DL (6.4-8.2) L Albumin 2.0 G/DL (3.4-5.0) L Globulin 3.8 g/dL Albumin/Globulin Ratio 0.5 (1.0-2.7) L Height (Feet): 5 Height (Inches): 4.00 Weight (Pounds): 110 Medications Current Medications Medications (Trade) Dose Ordered Sig/Jovanna Route PRN Reason Start Time Stop Time Status Last Admin Dose Admin Albuterol Sulfate (Proventil) 2.5 mg TIDRT N 07/03/17 19:00 07/07/17 18:59 07/06/17 13:31 Haloperidol Lactate (Haldol) 2 mg Q4H PRN IM Agitation 07/03/17 17:00 08/01/17 16:59 Metoclopramide HCl (Reglan) 10 mg Q8HR IVP 07/05/17 14:30 08/04/17 14:29 07/06/17 14:44 Metoprolol Tartrate (Lopressor) 25 mg Q12HR GT 07/03/17 21:00 08/02/17 20:59 07/06/17 10:05 Pantoprazole (Protonix) 40 mg DAILY IVP 07/06/17 09:00 08/01/17 20:59 07/06/17 10:05 Phosphorus (Phospha 250 Neutral) 250 mg THREE TIMES A DAY GT 07/05/17 10:00 08/04/17 09:59 07/06/17 19:05 Piperacillin Sod/ Tazobactam Sod 3.375 gm/Dextrose 55 ml @ 13.75 mls/ hr Q8HR IVPB 07/06/17 09:30 07/13/17 09:29 07/06/17 10:34 Barbara Alva M.D. Jul 06, 2017 19:41
[2017-07-06] MEDS ORDERED: Acetaminophen 650mg/20.3ml GT PRN (21:15)
[2017-07-07 04:00] VITALS: BP 154/68
[2017-07-07] MEDS: Piperacillin/Tazobactam 3.375 GM in D5W 55 ML IVPB SCH ×2 (05:05→14:07)
[2017-07-07] MEDS: Metoclopramide 10mg/2ml Inj IVP SCH ×2 (05:05→14:07)
[2017-07-07 06:43] LABS: MEAN CORPUSCULAR HEMOGLOBIN 35.1 PG (27.0-31.0); MEAN CORPUSCULAR HGB CONC 34.7 G/DL (32.0-36.0); MEAN CORPUSCULAR VOLUME 101 FL (80-99); MEAN PLATELET VOLUME 7.8 FL (6.5-10.1); PLATELET COUNT 157 K/UL (150-450); RED BLOOD COUNT 3.12 M/UL (4.70-6.10); RED CELL DISTRIBUTION WIDTH 11.3 % (11.6-14.8)
[2017-07-07 07:04] LABS: ALANINE AMINOTRANSFERASE 50 U/L (12-78); ALBUMIN/GLOBULIN RATIO 0.6 (1.0-2.7); ANION GAP 6 mmol/L (5-15); ASPARTATE AMINO TRANSFERASE 51 U/L (15-37); CALCIUM 7.8 MG/DL (8.5-10.1); CARBON DIOXIDE 31 MMOL/L (21-32); CHLORIDE 115 MMOL/L (98-107); CREATININE 0.6 MG/DL (0.55-1.30); PHOSPHORUS 2.6 MG/DL (2.5-4.9); POTASSIUM 3.8 MMOL/L (3.5-5.1); SODIUM 152 MMOL/L (136-145); TOTAL PROTEIN 5.5 G/DL (6.4-8.2)
[2017-07-07] MEDS: Albuterol ud Inhalation HHN SCH ×2 (07:08→13:18)
[2017-07-07 08:00] VITALS: BP 135/73
[2017-07-07 08:09] LABS: CRP QUANT 12.8 mg/dL (0.00-0.90)
[2017-07-07 08:11] LABS: ANISOCYTOSIS 1+; BAND NEUTROPHILS % (MANUAL) 0 % (0-8); BASOPHILS % (MANUAL) 0 % (0-2); EOSINOPHILS % (MANUAL) 0 % (0-3); HYPOCHROMASIA 1+; LYMPHOCYTES % (MANUAL) 10 % (20-45); MACROCYTES 1+; NEUTROPHILS % (MANUAL) 85 % (45-75); PLATELET ESTIMATE ADEQUATE; PLATELET MORPHOLOGY NORMAL; TOTAL CELLS COUNTED 100
[2017-07-07] MEDS: Metoprolol 25mg tab GT SCH (09:39)
[2017-07-07] MEDS: Phospha 250 Neutral tab GT SCH ×3 (09:39→17:49)
[2017-07-07] MEDS: Pantoprazole Inj IVP SCH (09:39)
--- NOTE | 2017-07-07 11:56 | Wound Care Consultation ---
Wound Assessment Wound Assessment #1: Wound Number: 1 Wound Present on Admission: No New Wound: Yes Status Change of Wound: No Wound Location Body Site Modif: left Wound Location Body Site: shoulder Wound Type: pressure ulcer Kim Test: Does not Kim Pressure Ulcer Stage: II Wound Thickness: Partial Thickness Wound Length: 0.5 Wound Width: 0.4 Wound Depth: less than 0.1 Percent of Wound [place]/Red: 100 Wound Drainage Amount: None Wound Drainage Odor: None/Absent Tissue Surrounding Wound: DTI surrounding skin L 2.5 x W 3.0 Wound General Appearance: Reddened Wound Assessment #2: Wound Number: 2 Wound Present on Admission: No New Wound: Yes Status Change of Wound: No Wound Location Body Site Modif: right, lateral Wound Location Body Site: toe - 1st Wound Type: pressure ulcer Kim Test: Does not Kim Pressure Ulcer Stage: Deep Tissue Injury Wound Thickness: Full Thickness Wound Length: 0.8 Wound Width: 0.8 Wound Depth: utd Percent of Wound Purple/Maroon: 100 Wound Drainage Amount: None Wound Drainage Odor: None/Absent Tissue Surrounding Wound: Erythemic Wound General Appearance: Reddened - purple Wound Assessment #3: Wound Number: 3 Wound Present on Admission: No New Wound: Yes Status Change of Wound: No Wound Location Body Site Modif: right Wound Location Body Site: metatarsal head - 1st Wound Type: pressure ulcer Kim Test: Does not Kim Pressure Ulcer Stage: I Wound Thickness: Full Thickness Wound Length: 1.0 Wound Width: 1.0 Percent of Wound [place]/Red: 100 Wound Drainage Amount: None Wound Drainage Odor: None/Absent Tissue Surrounding Wound: Erythemic Wound General Appearance: Reddened - purple Wound Assessment #4: Wound Number: 4 Wound Present on Admission: No New Wound: Yes Status Change of Wound: No Wound Location Body Site Modif: left, anterior Wound Location Body Site: knee Wound Type: traumatic injury Kim Test: Does not Kim Traumatic Injury Wounds: Skin Tear - scattered Wound Thickness: Partial Thickness Percent of Wound [place]/Red: 100 Wound Drainage Description: Serosanguineous Wound Drainage Amount: Scant Wound Drainage Odor: None/Absent Tissue Surrounding Wound: Erythemic Wound General Appearance: Reddened, Draining Wound Comment #1 Right lateral 1st toe DTI pressure ulcer #2 Right lateral 1st metatarsal head stage I pressure ulcer #3 Right anterior knee scattered skin tears which looks like open scab #4 Left shoulder DTI reveling as stage II pressure ulcer, surrounding skin DTI pressure ulcer #5 Left lower leg with dry scabs Recommendation -Local wound care per protocol -Keep clean and dry -Turn and reposition -Optimize nutrition -Heel protector on both heels -Offload both heels -Low air loss mattress -Assess and f/u accordingly for any changes HARPAL BENITEZ RN Jul 07, 2017 11:56
[2017-07-07 12:00] VITALS: BP 136/66
--- NOTE | 2017-07-07 13:12 | General Progress Note ---
Assessment/Plan Assessment/Plan status: Basal Atx on admit likely pneumonia / aspiration cxr left side infiltrate coffee ground vomitus PEG UTI, with mild henmaturia Dehydration , High Na MalNutrition Plan: on Zosyn- previously on Hospice now DNR DNI DPOA conversed with Dr Gallegos and agrees on Hospice DC to [facility] on Hospice, Augmentin Urine c/s- proteus HHN Up GT feeding Subjective ROS Limited/Unobtainable: No Constitutional: Reports: malaise, weakness Allergies: Coded Allergies: NO KNOWN DRUG ALLERGIES (Unverified Allergy, Unknown, 09/20/15) Objective Last 24 Hour Vital Signs Date Time Temp Pulse Resp B/P (MAP) Pulse Ox O2 Delivery O2 Flow Rate FiO2 07/07/17 12:00 97.7 78 20 136/66 100 Nasal Cannula 4.0 07/07/17 09:39 93 135/73 07/07/17 08:00 97.3 93 20 135/73 100 Nasal Cannula 4.0 07/07/17 07:18 89 20 99 Nasal Cannula 4.0 36 07/07/17 07:13 Nasal Cannula 4.0 36 07/07/17 07:06 84 18 95 Nasal Cannula 4.0 36 07/07/17 07:05 95 Nasal Cannula 4.0 36 07/07/17 04:00 97.9 76 20 154/68 97 Nasal Cannula 07/06/17 23:36 97.7 95 20 106/49 93 Room Air 07/06/17 21:27 115 127/64 07/06/17 20:12 Nasal Cannula 4.0 07/06/17 20:12 Nasal Cannula 07/06/17 20:11 Nasal Cannula 4.0 36 07/06/17 20:11 97 Nasal Cannula 4.0 36 07/06/17 19:34 99.7 115 18 127/64 96 Room Air 07/06/17 16:00 97.2 101 19 151/71 94 Nasal Cannula 2.0 07/06/17 13:40 97 16 99 Nasal Cannula 2.0 28 07/06/17 13:30 94 16 Nasal Cannula 2.0 28 Intake and Output 07/07/17 07/08/17 19:00 07:00 Intake Total 301.25 ml Balance 301.25 ml Free Water 60 ml IV Total 41.25 ml Tube Feeding 200 ml Laboratory Tests 07/07/17 05:40: White Blood Count 14.0H, Red Blood Count 3.12L, Hemoglobin 11.0L, Hematocrit 31.6L, Mean Corpuscular Volume 101H, Mean Corpuscular Hemoglobin 35.1H, Mean Corpuscular Hemoglobin Concent 34.7, Red Cell Distribution Width 11.3L, Platelet Count 157, Mean Platelet Volume 7.8, Neutrophils (%) (Auto) , Lymphocytes (%) (Auto) , Monocytes (%) (Auto) , Eosinophils (%) (Auto) , Basophils (%) (Auto) , Differential Total Cells Counted 100, Neutrophils % ( Manual) 85H, Lymphocytes % (Manual) 10L, Monocytes % (Manual) 5, Eosinophils % ( Manual) 0, Basophils % (Manual) 0, Band Neutrophils 0, Platelet Estimate Adequate, Platelet Morphology Normal, Hypochromasia 1+, Anisocytosis 1+, Macrocytosis 1+, Sodium Level 152H, Potassium Level 3.8, Chloride Level 115H, Carbon Dioxide Level 31, Anion Gap 6, Blood Urea Nitrogen 26H, Creatinine 0.6, Estimat Glomerular Filtration Rate , Glucose Level 147H, Calcium Level 7.8L, Phosphorus Level 2.6, Magnesium Level 2.1, Total Bilirubin 0.8, Aspartate Amino Transf (AST/SGOT) 51H, Alanine Aminotransferase (ALT/SGPT) 50, Alkaline Phosphatase 84, C-Reactive Protein, Quantitative 12.8H, Pro-B-Type Natriuretic Peptide 1753H, Total Protein 5.5L, Albumin 2.0L, Globulin 3.5, Albumin/Globulin Ratio 0.6L Height (Feet): 5 Height (Inches): 4.00 Weight (Pounds): 110 General Appearance: no apparent distress, lethargic Cardiovascular: normal rate Respiratory/Chest: decreased breath sounds Abdomen: soft, other - GT + Extremities: other - contracted Objective no change in PE JORDEN VARGAS Jul 07, 2017 13:12
[2017-07-07] MEDS ORDERED: ZANTAC150 MG ORAL (13:14)
[2017-07-07] MEDS ORDERED: AUGMENTIN 500-1 EACH ORAL (13:14)
[2017-07-07] MEDS ORDERED: LOPRESSOR25 M1 GT (13:14)
--- NOTE | 2017-07-07 13:14 | Discharge Instructions ---
Discharge Instructions Discharge Instructions Follow up with: [facility] For Congest[facility] Reminder Report to your physician any weight gain of 5 pounds or more in one week. JORDEN VARGAS Jul 07, 2017 13:14
--- NOTE | 2017-07-07 15:01 | Pulmonology Progress Note ---
Assessment/Plan Problems: (1) Gastrointestinal hemorrhage (2) S/P percutaneous endoscopic gastrostomy (PEG) tube placement (3) Hypernatremia (4) Hematuria (5) HTN (hypertension) (6) CAD (coronary artery disease) (7) Dementia Assessment/Plan wbc remains high Urine has Proteus sensitive to zosyn all noted and reviewed tolerating feeding ON Ceftriaxone d/w DPOA, she agreed with Hospice upon discharge, She might consider stopping feeding as well. Subjective ROS Limited/Unobtainable: No Constitutional: Reports: no symptoms HEENT: Repors: no symptoms Respiratory: Reports: no symptoms Allergies: Coded Allergies: NO KNOWN DRUG ALLERGIES (Unverified Allergy, Unknown, 09/20/15) Objective Last 24 Hour Vital Signs Date Time Temp Pulse Resp B/P (MAP) Pulse Ox O2 Delivery O2 Flow Rate FiO2 07/07/17 13:25 94 20 99 Nasal Cannula 4.0 36 07/07/17 13:15 80 18 Nasal Cannula 4.0 36 07/07/17 12:00 97.7 78 20 136/66 100 Nasal Cannula 4.0 07/07/17 09:39 93 135/73 07/07/17 08:00 97.3 93 20 135/73 100 Nasal Cannula 4.0 07/07/17 07:18 89 20 99 Nasal Cannula 4.0 36 07/07/17 07:13 Nasal Cannula 4.0 36 07/07/17 07:06 84 18 95 Nasal Cannula 4.0 36 07/07/17 07:05 95 Nasal Cannula 4.0 36 07/07/17 04:00 97.9 76 20 154/68 97 Nasal Cannula 07/06/17 23:36 97.7 95 20 106/49 93 Room Air 07/06/17 21:27 115 127/64 07/06/17 20:12 Nasal Cannula 4.0 07/06/17 20:12 Nasal Cannula 07/06/17 20:11 Nasal Cannula 4.0 36 07/06/17 20:11 97 Nasal Cannula 4.0 36 07/06/17 19:34 99.7 115 18 127/64 96 Room Air 07/06/17 16:00 97.2 101 19 151/71 94 Nasal Cannula 2.0 Intake and Output 07/07/17 07/08/17 19:00 07:00 Intake Total 301.25 ml Balance 301.25 ml Free Water 60 ml IV Total 41.25 ml Tube Feeding 200 ml Objective General Appearance: WD/WN, no apparent distress Lines, tubes and drains: peripheral, HEENT: normocephalic, anicteric Neck: non-tender, normal alignment Respiratory/Chest: chest wall non-tender, lungs clear Cardiovascular/Chest: normal rate, regular rhythm Abdomen: non tender, soft, Gtube in place Genitourinary/Rectal: normal genital exam, normal rectal exam Extremities: normal range of motion, non-pitting Laboratory Tests 07/07/17 05:40: White Blood Count 14.0H, Red Blood Count 3.12L, Hemoglobin 11.0L, Hematocrit 31.6L, Mean Corpuscular Volume 101H, Mean Corpuscular Hemoglobin 35.1H, Mean Corpuscular Hemoglobin Concent 34.7, Red Cell Distribution Width 11.3L, Platelet Count 157, Mean Platelet Volume 7.8, Neutrophils (%) (Auto) , Lymphocytes (%) (Auto) , Monocytes (%) (Auto) , Eosinophils (%) (Auto) , Basophils (%) (Auto) , Differential Total Cells Counted 100, Neutrophils % ( Manual) 85H, Lymphocytes % (Manual) 10L, Monocytes % (Manual) 5, Eosinophils % ( Manual) 0, Basophils % (Manual) 0, Band Neutrophils 0, Platelet Estimate Adequate, Platelet Morphology Normal, Hypochromasia 1+, Anisocytosis 1+, Macrocytosis 1+, Sodium Level 152H, Potassium Level 3.8, Chloride Level 115H, Carbon Dioxide Level 31, Anion Gap 6, Blood Urea Nitrogen 26H, Creatinine 0.6, Estimat Glomerular Filtration Rate , Glucose Level 147H, Calcium Level 7.8L, Phosphorus Level 2.6, Magnesium Level 2.1, Total Bilirubin 0.8, Aspartate Amino Transf (AST/SGOT) 51H, Alanine Aminotransferase (ALT/SGPT) 50, Alkaline Phosphatase 84, C-Reactive Protein, Quantitative 12.8H, Pro-B-Type Natriuretic Peptide 1753H, Total Protein 5.5L, Albumin 2.0L, Globulin 3.5, Albumin/Globulin Ratio 0.6L Current Medications Medications (Trade) Dose Ordered Sig/Jovanna Route PRN Reason Start Time Stop Time Status Last Admin Dose Admin Acetaminophen (Tylenol) 650 mg Q4H PRN GT Mild Pain/Temp > 100.5 07/06/17 21:15 08/05/17 21:14 Albuterol Sulfate (Proventil) 2.5 mg TIDRT HHN 07/03/17 19:00 07/07/17 18:59 07/07/17 13:18 Haloperidol Lactate (Haldol) 2 mg Q4H PRN IM Agitation 07/03/17 17:00 08/01/17 16:59 Metoclopramide HCl (Reglan) 10 mg Q8HR IVP 07/05/17 14:30 08/04/17 14:29 07/07/17 14:07 Metoprolol Tartrate (Lopressor) 50 mg Q12HR GT 07/06/17 21:30 08/05/17 21:29 07/07/17 09:39 Pantoprazole (Protonix) 40 mg DAILY IVP 07/06/17 09:00 08/01/17 20:59 07/07/17 09:39 Phosphorus (Phospha 250 Neutral) 250 mg THREE TIMES A DAY GT 07/05/17 10:00 08/04/17 09:59 07/07/17 14:07 Piperacillin Sod/ Tazobactam Sod 3.375 gm/Dextrose 55 ml @ 13.75 mls/ hr Q8HR IVPB 07/06/17 09:30 07/13/17 09:29 07/07/17 14:07 DAVID SERVIN Jul 07, 2017 15:01
[2017-07-07 16:00] VITALS: BP 134/90
--- NOTE | 2017-07-07 21:36 | General Progress Note ---
Assessment/Plan Status: stable Subjective Date patient seen: Jul 05, 2017 Neurologic/Psychiatric: Reports: anxiety, emotional problems Allergies: Coded Allergies: NO KNOWN DRUG ALLERGIES (Unverified Allergy, Unknown, 09/20/15) Objective Last 24 Hour Vital Signs Date Time Temp Pulse Resp B/P (MAP) Pulse Ox O2 Delivery O2 Flow Rate FiO2 07/07/17 16:00 97.9 78 19 134/90 97 Nasal Cannula 4.0 07/07/17 13:25 94 20 99 Nasal Cannula 4.0 36 07/07/17 13:15 80 18 Nasal Cannula 4.0 36 07/07/17 12:00 97.7 78 20 136/66 100 Nasal Cannula 4.0 07/07/17 09:39 93 135/73 07/07/17 08:00 97.3 93 20 135/73 100 Nasal Cannula 4.0 07/07/17 07:18 89 20 99 Nasal Cannula 4.0 36 07/07/17 07:13 Nasal Cannula 4.0 36 07/07/17 07:06 84 18 95 Nasal Cannula 4.0 36 07/07/17 07:05 95 Nasal Cannula 4.0 36 07/07/17 04:00 97.9 76 20 154/68 97 Nasal Cannula 07/06/17 23:36 97.7 95 20 106/49 93 Room Air Intake and Output 07/07/17 07/08/17 19:00 07:00 Intake Total 301.25 ml Balance 301.25 ml Free Water 60 ml IV Total 41.25 ml Tube Feeding 200 ml Laboratory Tests 07/07/17 05:40: White Blood Count 14.0H, Red Blood Count 3.12L, Hemoglobin 11.0L, Hematocrit 31.6L, Mean Corpuscular Volume 101H, Mean Corpuscular Hemoglobin 35.1H, Mean Corpuscular Hemoglobin Concent 34.7, Red Cell Distribution Width 11.3L, Platelet Count 157, Mean Platelet Volume 7.8, Neutrophils (%) (Auto) , Lymphocytes (%) (Auto) , Monocytes (%) (Auto) , Eosinophils (%) (Auto) , Basophils (%) (Auto) , Differential Total Cells Counted 100, Neutrophils % ( Manual) 85H, Lymphocytes % (Manual) 10L, Monocytes % (Manual) 5, Eosinophils % ( Manual) 0, Basophils % (Manual) 0, Band Neutrophils 0, Platelet Estimate Adequate, Platelet Morphology Normal, Hypochromasia 1+, Anisocytosis 1+, Macrocytosis 1+, Sodium Level 152H, Potassium Level 3.8, Chloride Level 115H, Carbon Dioxide Level 31, Anion Gap 6, Blood Urea Nitrogen 26H, Creatinine 0.6, Estimat Glomerular Filtration Rate , Glucose Level 147H, Calcium Level 7.8L, Phosphorus Level 2.6, Magnesium Level 2.1, Total Bilirubin 0.8, Aspartate Amino Transf (AST/SGOT) 51H, Alanine Aminotransferase (ALT/SGPT) 50, Alkaline Phosphatase 84, C-Reactive Protein, Quantitative 12.8H, Pro-B-Type Natriuretic Peptide 1753H, Total Protein 5.5L, Albumin 2.0L, Globulin 3.5, Albumin/Globulin Ratio 0.6L Height (Feet): 5 Height (Inches): 4.00 Weight (Pounds): 110 General Appearance: no apparent distress, lethargic, confused, agitated Neurologic: disoriented, depressed affect Barbara Alva M.D. Jul 07, 2017 21:36
--- NOTE | 2017-07-07 21:37 | Geriatric Progress Note ---
Subjective Functional Changes: 07/07/17 Mood/Memory: Reports: prior hx, anxiety Geriatric Geriatric Last 24 Hour Vital Signs Date Time Temp Pulse Resp B/P (MAP) Pulse Ox O2 Delivery O2 Flow Rate FiO2 07/07/17 16:00 97.9 78 19 134/90 97 Nasal Cannula 4.0 07/07/17 13:25 94 20 99 Nasal Cannula 4.0 36 07/07/17 13:15 80 18 Nasal Cannula 4.0 36 07/07/17 12:00 97.7 78 20 136/66 100 Nasal Cannula 4.0 07/07/17 09:39 93 135/73 07/07/17 08:00 97.3 93 20 135/73 100 Nasal Cannula 4.0 07/07/17 07:18 89 20 99 Nasal Cannula 4.0 36 07/07/17 07:13 Nasal Cannula 4.0 36 07/07/17 07:06 84 18 95 Nasal Cannula 4.0 36 07/07/17 07:05 95 Nasal Cannula 4.0 36 07/07/17 04:00 97.9 76 20 154/68 97 Nasal Cannula 07/06/17 23:36 97.7 95 20 106/49 93 Room Air Intake and Output 07/07/17 07/08/17 19:00 07:00 Intake Total 301.25 ml Balance 301.25 ml Free Water 60 ml IV Total 41.25 ml Tube Feeding 200 ml Laboratory Tests Test 07/07/17 05:40 White Blood Count 14.0 K/UL (4.8-10.8) H Red Blood Count 3.12 M/UL (4.70-6.10) L Hemoglobin 11.0 G/DL (14.2-18.0) L Hematocrit 31.6 % (42.0-52.0) L Mean Corpuscular Volume 101 FL (80-99) H Mean Corpuscular Hemoglobin 35.1 PG (27.0-31.0) H Mean Corpuscular Hemoglobin Concent 34.7 G/DL (32.0-36.0) Red Cell Distribution Width 11.3 % (11.6-14.8) L Platelet Count 157 K/UL (150-450) Mean Platelet Volume 7.8 FL (6.5-10.1) Neutrophils (%) (Auto) % (45.0-75.0) Lymphocytes (%) (Auto) % (20.0-45.0) Monocytes (%) (Auto) % (1.0-10.0) Eosinophils (%) (Auto) % (0.0-3.0) Basophils (%) (Auto) % (0.0-2.0) Differential Total Cells Counted 100 Neutrophils % (Manual) 85 % (45-75) H Lymphocytes % (Manual) 10 % (20-45) L Monocytes % (Manual) 5 % (1-10) Eosinophils % (Manual) 0 % (0-3) Basophils % (Manual) 0 % (0-2) Band Neutrophils 0 % (0-8) Platelet Estimate Adequate Platelet Morphology Normal Hypochromasia 1+ Anisocytosis 1+ Macrocytosis 1+ Sodium Level 152 MMOL/L (136-145) H Potassium Level 3.8 MMOL/L (3.5-5.1) Chloride Level 115 MMOL/L (98-107) H Carbon Dioxide Level 31 MMOL/L (21-32) Anion Gap 6 mmol/L (5-15) Blood Urea Nitrogen 26 mg/dL (7-18) H Creatinine 0.6 MG/DL (0.55-1.30) Estimat Glomerular Filtration Rate mL/min (>60) Glucose Level 147 MG/DL (74-106) H Calcium Level 7.8 MG/DL (8.5-10.1) L Phosphorus Level 2.6 MG/DL (2.5-4.9) Magnesium Level 2.1 MG/DL (1.8-2.4) Total Bilirubin 0.8 MG/DL (0.2-1.0) Aspartate Amino Transf (AST/SGOT) 51 U/L (15-37) H Alanine Aminotransferase (ALT/SGPT) 50 U/L (12-78) Alkaline Phosphatase 84 U/L (46-116) C-Reactive Protein, Quantitative 12.8 mg/dL (0.00-0.90) H Pro-B-Type Natriuretic Peptide 1753 pg/mL (0-125) H Total Protein 5.5 G/DL (6.4-8.2) L Albumin 2.0 G/DL (3.4-5.0) L Globulin 3.5 g/dL Albumin/Globulin Ratio 0.6 (1.0-2.7) L Height (Feet): 5 Height (Inches): 4.00 Weight (Pounds): 110 General Appearance: poor eye contact Barbara Alva M.D. Jul 07, 2017 21:37
--- NOTE | 2017-07-09 14:53 | Discharge Summary ---
Discharge Summary Hospital Course Date of Admission Jul 02, 2017 at 11:48 Date of Discharge Jul 07, 2017 at 18:37 Admitting Diagnosis GI Bleeding HPI Beni Baez is a 82 year old male who was admitted on Jul 02, 2017 at 11: 48 for Gi Bleed Hospital Course [id number] Discharge Discharge Disposition Patient was discharged to [facility] with Hospice Discharge Diagnoses: Discharge Instructions Discharge Instructions Follow up with: Haydee Crain NP Jul 09, 2017 14:53
--- NOTE | 2017-07-09 22:30 | Discharge Summary 2 SIG ---
DATE OF ADMISSION: 07/02/2017 DATE OF DISCHARGE: 07/07/2017 CONSULTANTS: 1. Ezio Gallegos M.D. 2. Barbara Alva M.D. 3. Isaiah Rdz M.D. BRIEF HOSPITAL COURSE: The patient is an 82-year-old male, in vegetative state, who resides in [facility]. DNR and DNI. He had coffee-ground vomitus and was sent to emergency room for further evaluation. He was evaluated at ED and was found to have hypernatremia with sodium of 151. Chloride was 87. Urine with positive nitrites, 3+ leukocyte esterase, urine WBCs 5 to 10, and urine RBCs 20 to 30. Chest x-ray done, showed mild left basal atelectasis. He was given IV hydration and Protonix 40 mg IV push q.12 h. He was started on Rocephin and was initially placed on NPO. Nelson catheter was inserted and had mild gross hematuria. Urine culture showed growth of Proteus mirabilis. He was eventually started on G-tube feed. Chest x-ray showed left lung infiltrate. He was continued on Zosyn and ceftriaxone. He had multiple pressure ulcer and was given wound care. The patient was previously on hospice and DPOA agreed to continue hospice care. He was eventually discharged back to [facility]. Continue with G-tube feed and Augmentin as outpatient. FINAL DIAGNOSES: 1. Likely aspiration pneumonia. 2. Coffee-ground vomitus. 3. Dysphagia with percutaneous endoscopic gastrostomy tube. 4. Urinary tract infection with Proteus. 5. Mild hematuria. 6. Dehydration with high sodium. 7. Malnutrition. 8. Dementia. 9. Coronary artery disease. 10. Hypertension. 11. Multiple pressure ulcer. Refer to wound documentation. DISPOSITION: The patient was discharged to [facility] with hospice. DISCHARGE MEDICATIONS: Refer to medication list. Da Davis M.D. I have been assigned to dictate discharge summary on this account and I was not involved in the patient's management. Haydee Kumar N.P. DR: Genaro JOB#: [id number] CC: RODRI
--- NOTE | 2017-07-12 16:20 | Cardiology Report ---
APPROVED REPORT EKG Measurement Heart [id number] Sinus tachycardia Low voltage QRS Possible Lateral infarct, age undetermined Abnormal ECG
== END 2017-07-07 18:37 | DRG 178 ==
LOC: EDUNIT# 10:13 → EDBD 10:13 → EMR 10:59 → 2E 11:48 → EDBEDREQ 12:28 → 4E 07-03 13:54
DX: J69.0 Pneumonitis due to inhalation of food and vomit (principal); R40.3 Persistent vegetative state; E87.0 Hyperosmolality and hypernatremia; E46 Unspecified protein-calorie malnutrition; K92.2 Gastrointestinal hemorrhage, unspecified; Z43.1 Encounter for attention to gastrostomy; L89.892 Pressure ulcer of other site, stage 2; L89.891 Pressure ulcer of other site, stage 1; N39.0 Urinary tract infection, site not specified; Z68.1 Body mass index [BMI] 19.9 or less, adult; R13.10 Dysphagia, unspecified; F03.90 Unspecified dementia, unspecified severity, without behavioral disturbance, psychotic disturbance, mood disturbance, and anxiety; E86.0 Dehydration; I25.10 Atherosclerotic heart disease of native coronary artery without angina pectoris; I10 Essential (primary) hypertension; B96.4 Proteus (mirabilis) (morganii) as the cause of diseases classified elsewhere; E03.9 Hypothyroidism, unspecified; F09 Unspecified mental disorder due to known physiological condition; R31.0 Gross hematuria; Z66 Do not resuscitate
CPT/HCPCS: 36415; 71010; 80053; 80061; 81001; 81003; 82248; 82550; 82553; 82607; 82746; 82977; 83690; 83735; 83880; 84100; 84443; 84484; 84550; 85007; 85025; 85610; 85730; 86140; 87086; 87181; 93005; 94640; 94664; 94760; 99285; C9399; J2765

== ENCOUNTER 2018-03-22 14:16 | Emergency (ER) | payer MEDICARE, MEDICAID ==
[~2018-03-22] VITALS: Ht 167.6 cm; Wt 56.7 kg
[~2018-03-22 14:16] MED LIST changes: +AUGMENTIN 500-1 EACH ORAL; +LOPRESSOR25 M1 GT; +ZANTAC150 MG ORAL
[2018-03-22 15:11] VITALS: BP 95/69
[2018-03-22 15:17] VITALS: BP 102/65
--- NOTE | 2018-03-22 15:19 | Diagnostic Imaging Report ---
Indication: Status post gastrostomy replacement Technique: Supine view of the abdomen after injection of water-soluble contrast into gastrostomy Comparison: 06/25/2017 Findings: Contrast opacifies the stomach. No contrast extravasation is demonstrated. The bowel gas pattern is unremarkable. No significant interim change Impression: Satisfactory position of gastrostomy tube
--- NOTE | 2018-03-22 15:26 | Emergency Room Report ---
History of Present Illness General Chief Complaint: Malfunctioning Gastric Tube Source: Medical Record, EMS Present Illness HPI 82-year-old male presents ED for G-tube placement. Was found dislodged by nursing staff today at long-term facility. Placed with Cooper catheter. Upon arrival patient no distress. Patient is nonverbal at baseline and unable to provide any additional history at this time. No other aggravating relieving factors. No other associated symptoms Allergies: Coded Allergies: NO KNOWN DRUG ALLERGIES (Unverified Allergy, Unknown, 09/20/15) Patient History Past Medical History: HTN, CAD, CVA/TIA, dementia Past Surgical History: other - Gtube Pertinent Family History: none Social History: Denies: smoking, alcohol use, drug use Immunizations: UTD Reviewed Nursing Documentation: PMH: Agreed; PSxH: Agreed Nursing Documentation-PMH Past Medical History: No History, Except For Hx Cardiac Problems: Yes - anemia, angina,CAD Hx Hypertension: Yes Hx Pacemaker: No Hx Asthma: No Hx COPD: No Hx Diabetes: No Hx Cancer: No Hx Gastrointestinal Problems: Yes - Dysphagia, G-tube Hx Dialysis: No Hx Neurological Problems: Yes Hx Cerebrovascular Accident: Yes - TIA Hx Transient Ischemic Attacks: Yes - no residual Hx Dementia: Yes Hx Seizures: No Hx Spinal Cord Injury: Yes - spinal stenosis Hx Aphasia: Yes Hx Dysphasia: Yes Hx Weakness: Yes - generalized muscle weakness Hx Neurologic Surgery: No Hx Brain Shunt: No Review of Systems All Other Systems: limited Physical Exam Vital Signs Date Time Temp Pulse Resp B/P (MAP) Pulse Ox O2 Delivery O2 Flow Rate FiO2 03/22/18 14:11 97.3 50 18 106/52 99 Nasal Cannula 2.0 97.3 Sp02 EP Interpretation: reviewed, normal General Appearance: no apparent distress, non-toxic, other - nonverbal Head: normocephalic Eyes: bilateral eye normal inspection, bilateral eye PERRL ENT: normal ENT inspection Neck: normal inspection Respiratory: normal inspection Cardiovascular #1: normal inspection Gastrointestinal: normal bowel sounds, non tender, soft, non-distended, no guarding, no rebound, other - Gtube site C/D/I. cooper catheter in place Rectal: deferred Genitourinary: no CVA tenderness Musculoskeletal: normal inspection Neurologic: other - nonverbal Psychiatric: other - nonverbal Skin: normal inspection Lymphatic: normal inspection Procedures Additional Procedure Procedure Narrative G-tube placement Patient placed on stretcher. Old G-tube is removed by deflating the balloon using syringe. G-tube site is inspected with no contraindications to G-tube placement. G-tube slowly inserted until resistance is met; G-tube balloon is slowly filled with 20 mL of normal saline and slowly retracted back until resistance is met. G-tube placement is confirmed with KUB study using Gastrografin Medical Decision Making Diagnostic Impression: Primary Impression: Malfunction of gastrostomy tube ER Course Hospital Course 82-year-old male presents to ED for G-tube placement. Clinical course Patient placed on stretcher. After initial history and physical I replaced G- tube and inflate the balloon. G-tube placement confirmed with KUB study. Patient remained stable without any signs of distress. assisted called and patient subsequently discharged back to facility. Dr Galelgos made aware that G-tube was successfully replaced and patient return to facility Diagnosis - malfunction of G tube stable and discharged back to facility. Followup with PMD. Return to ED if symptoms recur or worsen Other X-Ray Diagnostic Results Other X-Ray Diagnostic Results : X-Ray ordered: KUB # of Views/Limited Vs Complete: 1 View Indication: Other - Gtube placement EP Interpretation: Yes Interpretation: nonspecific bowel gas, no sbo, other - Gtube in place Impression: Other - Gtube confirmed Electronically Signed by: Electronically signed by Cameron Barnett MD Last Vital Signs Date Time Temp Pulse Resp B/P (MAP) Pulse Ox O2 Delivery O2 Flow Rate FiO2 03/22/18 15:17 98.1 63 12 102/65 100 Nasal Cannula 2.0 97.3 Status: improved Disposition: [facility] SNF Condition: Stable Referrals: Ezio Gallegos MD (PCP) Patient Instructions: Gastrostomy Tube Home Guide, Adult Cameron Barnett MD Mar 22, 2018 15:26
== END 2018-03-22 15:31 ==
LOC: EDBD 14:16 → EMR 14:40
DX: K94.23 Gastrostomy malfunction (principal)
CPT/HCPCS: 74018; 99283

== ENCOUNTER 2018-05-14 11:02 | Emergency (ER) | payer MEDICARE, MEDICAID ==
[~2018-05-14] VITALS: Ht 172.7 cm; Wt 61.2 kg
[2018-05-14] MEDS ORDERED: ISOSOURCE 1.51000 ML PO (11:05)
--- NOTE | 2018-05-14 12:08 | Emergency Room Report ---
History of Present Illness General Chief Complaint: General Complaint Source: Medical Record Present Illness HPI Patient presents with request of change of feeding tube The nursing facility reports that the feeding tube is malfunctioning leaking around the edges Patient himself is nonverbal chronically debilitated This does limit the history of present illness somewhat There was no other reports of vomiting or diarrhea no reports of any fevers Allergies: Coded Allergies: NO KNOWN DRUG ALLERGIES (Unverified Allergy, Unknown, 09/20/15) Patient History Limited by: medical condition Past Medical History: see triage record Pertinent Family History: unable to obtain Reviewed Nursing Documentation: PMH: Agreed; PSxH: Agreed Nursing Documentation-PMH Hx Cardiac Problems: Yes - anemia, angina,CAD Hx Hypertension: Yes Hx Pacemaker: No Hx Asthma: No Hx COPD: No Hx Diabetes: No Hx Cancer: No Hx Gastrointestinal Problems: Yes - Dysphagia, G-tube Hx Dialysis: No Hx Neurological Problems: Yes - encephalopathy Hx Cerebrovascular Accident: Yes Hx Transient Ischemic Attacks: Yes - no residual Hx Dementia: Yes Hx Seizures: No Hx Spinal Cord Injury: Yes - spinal stenosis Hx Aphasia: Yes Hx Dysphasia: Yes Hx Weakness: Yes - generalized muscle weakness Hx Neurologic Surgery: No Hx Brain Shunt: No Review of Systems All Other Systems: limited - Other than the ones mentioned in the history of present illness all others are reviewed however they do stay limited due to the patient's mental status Physical Exam Vital Signs Date Time Temp Pulse Resp B/P (MAP) Pulse Ox O2 Delivery O2 Flow Rate FiO2 05/14/18 10:50 97.0 70 16 120/70 98 Room Air 97.0 Sp02 EP Interpretation: reviewed, normal General Appearance: no apparent distress Head: normocephalic, atraumatic Eyes: bilateral eye PERRL ENT: normal pharynx, no angioedema Neck: supple Respiratory: lungs clear, normal breath sounds, no retraction Cardiovascular #1: regular rate, rhythm Gastrointestinal: non tender, soft, other - Feeding tube in place Musculoskeletal: other - Chronically debilitated does not follow commands has significant resistance in the upper extremities Neurologic: responsive - To verbal and physical stimuli Skin: no rash, warm/dry Medical Decision Making Diagnostic Impression: Primary Impression: Malfunction of gastrostomy tube ER Course Given the history and findings the feeding tube itself was able to be flushed however there is some leaking around the entrance aspect above the stoma On further evaluation it appears that the feeding tube has been trimmed down significantly and there is only about 3-4 cm left on the feeding tube Likely leading to the leaking around the site The balloon was already deflated And the feeding tube removed appears old A new 16 [place] feeding tube was placed through the stoma without any resistance after cleansing and prepping the area Patient are the procedure well area was taped down and KUB with Gastrografin is obtained for confirmation and patient stable for close outpatient half-way follow-up Other X-Ray Diagnostic Results Other X-Ray Diagnostic Results : X-Ray ordered: kub # of Views/Limited Vs Complete: 1 View Indication: Other EP Interpretation: Yes Interpretation: no dislocation, no soft tissue swelling, other - Gastrografin appropriately in the lumen, no obvious extravasation Impression: Other - Appropriate tube placement Electronically Signed by: Samir Arteaga DO Last Vital Signs Date Time Temp Pulse Resp B/P (MAP) Pulse Ox O2 Delivery O2 Flow Rate FiO2 05/14/18 10:50 97.0 70 16 120/70 98 Room Air 97.0 Status: improved Disposition: [facility] SNF Condition: Improved Referrals: Ezio Gallegos MD (PCP) Patient Instructions: Gastrostomy Tube Home Guide, Adult Additional Instructions: follow-up with your primary primary care physician next 2-3days Samir Arteaga DO May 14, 2018 12:08
[2018-05-14 12:16] VITALS: BP 123/69
--- NOTE | 2018-05-14 13:02 | Diagnostic Imaging Report ---
Indication: Gastrostomy check Comparison: None Single view of the abdomen obtained Findings: Contrast injected into the indwelling gastrostomy which is projected over the antrum of the stomach. There is contrast material demonstrated within the stomach and proximal duodenum. There is no contrast extravasation. IMPRESSION: Gastrostomy in good position. No leak
[2018-05-14 13:56] VITALS: BP 107/61
[2018-05-14 13:57] VITALS: BP 123/69
== END 2018-05-14 14:00 ==
LOC: EDBD 11:02 → EMR 11:35
DX: K94.23 Gastrostomy malfunction (principal); F03.90 Unspecified dementia, unspecified severity, without behavioral disturbance, psychotic disturbance, mood disturbance, and anxiety; I10 Essential (primary) hypertension; Z86.61 Personal history of infections of the central nervous system; Z86.73 Personal history of transient ischemic attack (TIA), and cerebral infarction without residual deficits
CPT/HCPCS: 74018; 99283

== ENCOUNTER 2018-07-20 13:25 | Inpatient (IN) | payer MEDICARE, MEDICAID ==
[~2018-07-20] VITALS: Ht 165.1 cm; Wt 53.3 kg
[~2018-07-20 13:25] MED LIST changes: +ISOSOURCE 1.51000 ML PO
[2018-07-20] MEDS ORDERED: MORPHINE S10 MG/5 ML ORAL (13:39)
[2018-07-20] MEDS ORDERED: BACITRACIN1 EACH TOPIC (13:39)
[2018-07-20 14:00] VITALS: BP 115/97
[2018-07-20] MEDS ORDERED: Acetaminophen 650 MG SUPP RECTAL ONE (14:00)
[2018-07-20] MEDS ORDERED: Cefepime HCl 1 GM in NS 55 ML IV SCH (14:00)
[2018-07-20] MEDS ORDERED: Vancomycin 1 GM in NS 275 ML IV ONE (14:00)
[2018-07-20 14:23] LABS: ANION GAP 7 mmol/L (5-15); BLOOD UREA NITROGEN 24 mg/dL (7-18); CALCIUM 8.8 MG/DL (8.5-10.1); CARBON DIOXIDE 25 MMOL/L (21-32); CHLORIDE 95 MMOL/L (98-107); CREATININE 0.5 MG/DL (0.55-1.30); POTASSIUM 4.4 MMOL/L (3.5-5.1); SODIUM 127 MMOL/L (136-145)
[2018-07-20 14:25] LABS: BASOPHILS % (AUTO) 0.6 % (0.0-2.0); HEMATOCRIT 35.6 % (42.0-52.0); HEMOGLOBIN 12.3 G/DL (14.2-18.0); LYMPHOCYTES % (AUTO) 13.2 % (20.0-45.0); MEAN CORPUSCULAR VOLUME 93 FL (80-99); MONOCYTES % (AUTO) 11.9 % (1.0-10.0); NEUTROPHILS % (AUTO) 74.3 % (45.0-75.0); PLATELET COUNT 181 K/UL (150-450); RED BLOOD COUNT 3.83 M/UL (4.70-6.10); WHITE BLOOD COUNT 9.8 K/UL (4.8-10.8)
[2018-07-20 14:30] LABS: INR 1.1 (0.9-1.1)
[2018-07-20 14:35] LABS: ALANINE AMINOTRANSFERASE 89 U/L (12-78); ALBUMIN 2.5 G/DL (3.4-5.0); ALBUMIN/GLOBULIN RATIO 0.5 (1.0-2.7); ALKALINE PHOSPHATASE 136 U/L (46-116); ASPARTATE AMINO TRANSFERASE 105 U/L (15-37); BILIRUBIN,TOTAL 1.3 MG/DL (0.2-1.0); CREATINE KINASE 88 U/L (26-308)
[2018-07-20 14:37] LABS: BILIRUBIN,DIRECT 0.6 MG/DL (0.0-0.3)
[2018-07-20 14:42] LABS: APPEARANCE,URINE CLEAR; BILIRUBIN, URINE NEGATIVE (NEGATIVE); GLUCOSE, URINE (UA) NEGATIVE (NEGATIVE); KETONES,URINE NEGATIVE (NEGATIVE); LEUKOCYTE ESTERASE ,URINE 1+ (NEGATIVE); NITRITE,URINE NEGATIVE (NEGATIVE); PH,URINE 5 (4.5-8.0); PROTEIN,URINE 1+ (NEGATIVE); UROBILINOGEN,URINE 1 MG/DL (0.0-1.0)
[2018-07-20 14:49] LABS: COLOR,URINE YELLOW
--- NOTE | 2018-07-20 15:25 | Emergency Room Report ---
History of Present Illness General Chief Complaint: Fever Source: EMS Present Illness HPI Patient presents with fever. DNR Chronically debilitated and unable to give history. Admitted June 2017 with these d/c dx: 1. Likely aspiration pneumonia. 2. Coffee-ground vomitus. 3. Dysphagia with percutaneous endoscopic gastrostomy tube. 4. Urinary tract infection with Proteus. 5. Mild hematuria. 6. Dehydration with high sodium. 7. Malnutrition. 8. Dementia. 9. Coronary artery disease. 10. Hypertension. 11. Multiple pressure ulcer. Refer to wound documentation. Allergies: Coded Allergies: NO KNOWN DRUG ALLERGIES (Unverified Allergy, Unknown, 09/20/15) Patient History Limited by: medical condition Past Medical History: see triage record, old chart reviewed Past Surgical History: other - g tube Social History Narrative SNF Reviewed Nursing Documentation: PMH: Agreed; PSxH: Agreed Nursing Documentation-PMH Past Medical History: No History, Except For Hx Cardiac Problems: Yes - anemia, angina,CAD Hx Hypertension: Yes Hx Pacemaker: No Hx Asthma: No Hx COPD: No Hx Diabetes: No Hx Cancer: No Hx Gastrointestinal Problems: Yes - Dysphagia, G-tube Hx Dialysis: No Hx Neurological Problems: Yes - encephalopathy Hx Cerebrovascular Accident: Yes Hx Transient Ischemic Attacks: Yes - no residual Hx Dementia: Yes Hx Seizures: No Hx Spinal Cord Injury: Yes - spinal stenosis Hx Aphasia: Yes Hx Dysphasia: Yes Hx Weakness: Yes - generalized muscle weakness Hx Neurologic Surgery: No Hx Brain Shunt: No Review of Systems All Other Systems: limited Physical Exam Vital Signs Date Time Temp Pulse Resp B/P (MAP) Pulse Ox O2 Delivery O2 Flow Rate FiO2 07/20/18 13:27 97.9 128/48 07/20/18 14:00 95 13 Nasal Cannula 93 07/20/18 14:00 93 Sp02 EP Interpretation: reviewed, abnormal - interpreted as low by me General Appearance: other - position with contractures - minimal response to pain, Chronically Ill Eyes: bilateral eye normal inspection, bilateral eye PERRL ENT: moist mucus membranes Neck: no bony tend, other - rigidity Respiratory: crackles, rhonchi Cardiovascular #1: regular rate, rhythm Cardiovascular #2: 2+ radial (R) Gastrointestinal: non tender, soft, other - G tube, decreased bowel sounds Genitourinary: no CVA tenderness Musculoskeletal: other - contractures Neurologic: other - minimally responsive but + ag Psychiatric: other - stupor Skin: other - decubiti, head, L leg, feet Medical Decision Making Diagnostic Impression: Primary Impression: Sepsis Qualified Codes: A41.9 - Sepsis, unspecified organism Additional Impressions: Pneumonia Qualified Codes: J18.1 - Lobar pneumonia, unspecified organism Elevated liver enzymes Hyponatremia ER Course Patient with fever. DDX: sepsis, PNA, UTI amongst others. Evaluation with EKG , CXR and labs including blood cultures. Treatment with aggressive IV hydration , tylenol, antibiotics. Placed on night monitor and given oxygen. EKG without injury. CXR with LLL infiltrate and possible effusion. WBC normal. CMP with low sodium and elevated BUN and elevated LFTs. UA clear. Has had chronic elevation of LFTs in past. Sepsis re-evaluation 15:20: more alert, good cap fill, HR 101. Admitted telemetry Dr. Davis. Laboratory Tests Test 07/20/18 13:30 07/20/18 13:45 07/20/18 14:20 07/20/18 19:05 Sodium Level 127 MMOL/L (136-145) L Potassium Level 4.4 MMOL/L (3.5-5.1) Chloride Level 95 MMOL/L (98-107) L Carbon Dioxide Level 25 MMOL/L (21-32) Anion Gap 7 mmol/L (5-15) Blood Urea Nitrogen 24 mg/dL (7-18) H Creatinine 0.5 MG/DL (0.55-1.30) L Estimate Glomerular Filtration Rate mL/min (>60) Glucose Level 109 MG/DL (74-106) H Calcium Level 8.8 MG/DL (8.5-10.1) Magnesium Level 1.8 MG/DL (1.8-2.4) Total Bilirubin 1.3 MG/DL (0.2-1.0) H Direct Bilirubin 0.6 MG/DL (0.0-0.3) H Aspartate Amino Transferase (AST) 105 U/L (15-37) H Alanine Aminotransferase (ALT) 89 U/L (12-78) H Alkaline Phosphatase 136 U/L (46-116) H Total Creatine Kinase 88 U/L (26-308) Pro-B-Type Natriuretic Peptide 1247 pg/mL (0-125) H Total Protein 7.5 G/DL (6.4-8.2) Albumin 2.5 G/DL (3.4-5.0) L Globulin 5.0 g/dL Albumin/Globulin Ratio 0.5 (1.0-2.7) L White Blood Count 9.8 K/UL (4.8-10.8) Red Blood Count 3.83 M/UL (4.70-6.10) L Hemoglobin 12.3 G/DL (14.2-18.0) L Hematocrit 35.6 % (42.0-52.0) L Mean Corpuscular Volume 93 FL (80-99) Mean Corpuscular Hemoglobin 32.2 PG (27.0-31.0) H Mean Corpuscular Hemoglobin Concent 34.6 G/DL (32.0-36.0) Red Cell Distribution Width 10.0 % (11.6-14.8) L Platelet Count 181 K/UL (150-450) Mean Platelet Volume 7.5 FL (6.5-10.1) Neutrophils (%) (Auto) 74.3 % (45.0-75.0) Lymphocytes (%) (Auto) 13.2 % (20.0-45.0) L Monocytes (%) (Auto) 11.9 % (1.0-10.0) H Eosinophils (%) (Auto) 0.0 % (0.0-3.0) Basophils (%) (Auto) 0.6 % (0.0-2.0) Prothrombin Time 11.5 SEC (9.30-11.50) Prothrombin Time INR 1.1 (0.9-1.1) PTT 32 SEC (23-33) Lactic Acid Level 1.40 mmol/L (0.4-2.0) Troponin I 0.011 ng/mL (0.000-0.056) C-Reactive Protein, Quantitative 4.8 mg/dL (0.00-0.90) H Urine Color Yellow Urine Appearance Clear Urine pH 5 (4.5-8.0) Urine Specific [place] 1.020 (1.005-1.035) Urine Protein 1+ (NEGATIVE) H Urine Glucose (UA) Negative (NEGATIVE) Urine Ketones Negative (NEGATIVE) Urine Blood 2+ (NEGATIVE) H Urine Nitrite Negative (NEGATIVE) Urine Bilirubin Negative (NEGATIVE) Urine Urobilinogen 1 MG/DL (0.0-1.0) H Urine Leukocyte Esterase 1+ (NEGATIVE) H Urine RBC 2-4 /HPF (0 - 0) H Urine WBC 0-2 /HPF (0 - 0) Urine Squamous Epithelial Cells Occasional /LPF Urine Amorphous Sediment Few /LPF (NONE) H Urine Bacteria Occasional /HPF (NONE) Urine Mucus Few /LPF (NONE/OCC) H Hepatitis A IgM Antibody Pending Hepatitis B Surface Antigen Pending Hepatitis B Core IgM Antibody Pending Hepatitis C Antibody Pending Test 07/21/18 05:55 White Blood Count 11.3 K/UL (4.8-10.8) H Red Blood Count 2.98 M/UL (4.70-6.10) L Hemoglobin 9.6 G/DL (14.2-18.0) L Hematocrit 27.8 % (42.0-52.0) L Mean Corpuscular Volume 94 FL (80-99) Mean Corpuscular Hemoglobin 32.4 PG (27.0-31.0) H Mean Corpuscular Hemoglobin Concent 34.7 G/DL (32.0-36.0) Red Cell Distribution Width 10.3 % (11.6-14.8) L Platelet Count 139 K/UL (150-450) L Mean Platelet Volume 6.8 FL (6.5-10.1) Neutrophils (%) (Auto) 79.4 % (45.0-75.0) H Lymphocytes (%) (Auto) 11.6 % (20.0-45.0) L Monocytes (%) (Auto) 8.3 % (1.0-10.0) Eosinophils (%) (Auto) 0.0 % (0.0-3.0) Basophils (%) (Auto) 0.7 % (0.0-2.0) Sodium Level 130 MMOL/L (136-145) L Potassium Level 4.3 MMOL/L (3.5-5.1) Chloride Level 100 MMOL/L (98-107) Carbon Dioxide Level 25 MMOL/L (21-32) Anion Gap 5 mmol/L (5-15) Blood Urea Nitrogen 24 mg/dL (7-18) H Creatinine 0.6 MG/DL (0.55-1.30) Estimate Glomerular Filtration Rate mL/min (>60) Glucose Level 136 MG/DL (74-106) H Uric Acid 2.0 MG/DL (2.6-7.2) L Calcium Level 8.1 MG/DL (8.5-10.1) L Phosphorus Level 2.1 MG/DL (2.5-4.9) L Magnesium Level 1.6 MG/DL (1.8-2.4) L Iron Level 30 ug/dL (50-175) L Total Iron Binding Capacity 203 ug/dL (250-450) L Percent Iron Saturation 15 % (15-50) Unsaturated Iron Binding 173 ug/dL (112-346) Ferritin 372 NG/ML (8-388) Total Bilirubin 1.2 MG/DL (0.2-1.0) H Direct Bilirubin 0.7 MG/DL (0.0-0.3) H Gamma Glutamyl Transpeptidase 56 U/L (5-85) Aspartate Amino Transferase (AST) 70 U/L (15-37) H Alanine Aminotransferase (ALT) 66 U/L (12-78) Alkaline Phosphatase 91 U/L (46-116) Troponin I 0.036 ng/mL (0.000-0.056) Pro-B-Type Natriuretic Peptide 4079 pg/mL (0-125) H Total Protein 6.2 G/DL (6.4-8.2) L Albumin 2.0 G/DL (3.4-5.0) L Globulin 4.2 g/dL Albumin/Globulin Ratio 0.5 (1.0-2.7) L Triglycerides Level 25 MG/DL (30-150) L Cholesterol Level 62 MG/DL (< 200) LDL Cholesterol 40 mg/dL (<100) HDL Cholesterol 34 MG/DL (40-60) L Cholesterol/HDL Ratio 1.8 (3.3-4.4) L Vitamin B12 Level 455 PG/ML (193-986) Folate 22.9 NG/ML (8.6-58.9) Thyroid Stimulating Hormone (TSH) 5.674 uiU/mL (0.358-3.740) Microbiology Date/Time Source Procedure Growth Status 07/20/18 13:45 Nasal Nares Influenza Types A,B Antigen (MAULIK) - Final Complete EKG Diagnostic Results Rate: normal Rhythm: NSR ST Segments: other - NSSTTW changes Rhythm Strip Diag. Results EP Interpretation: yes Rhythm: NSR, no PVC's, no ectopy Chest X-Ray Diagnostic Results Chest X-Ray Diagnostic Results : Chest X-Ray Ordered: Yes # of Views/Limited/Complete: 1 View Indication: Other EP Interpretation: Yes Interpretation: no pneumothorax, other - LLL infiltrate and inc cor Impression: Other Electronically Signed by: Electronically signed by Jacoby Burnette MD Status: improved Disposition: ADMITTED INPATIENT Condition: Serious Referrals: Ezio Gallegos MD (PCP) Jacoby Burnette MD Jul 20, 2018 15:25
--- NOTE | 2018-07-20 17:04 | Diagnostic Imaging Report ---
Indication: Shortness of breath Technique: One view of the chest Comparison: 07/06/2017 Findings: Infiltrates are seen in the left perihilar region and left lung base, appearing less extensive than on the prior study. The left hemidiaphragm is elevated, more so than on the previous study. The right lung and bilateral pleural spaces remain clear. Heart size is upper limits of normal Impression: Left perihilar infiltrates, as described. Uncertain as to whether this is residual from the previous exam or represent new recurrent infiltrates. Correlate with clinical findings
[2018-07-20 17:50] VITALS: BP 135/59
--- NOTE | 2018-07-20 18:08 | History & Physical ---
History and Physical History & Physicial pneumonia Malnutrition UTI HypoNatremia PEG Anemia Dementia elevated LFTs Previously on Hospice DNR DNI # [id number] Da Davis MD Jul 20, 2018 18:08
[2018-07-20] MEDS ORDERED: Metoclopramide 10mg/2ml Inj IVP PRN (18:15)
[2018-07-20] MEDS ORDERED: D5NS 1,000 ML IV SCH (18:15)
[2018-07-20] MEDS ORDERED: Acetaminophen 650mg/20.3ml GT PRN (18:15)
--- NOTE | 2018-07-20 18:42 | Infectious Diseases Prog Note ---
Assessment/Plan Problems: (1) Aspiration pneumonia Assessment & Plan: with left perihilar infiltrates , will send sputum culture and start vancomycin with zosyn empirically , recommend aspiration precaution and keep HOB > 30 degree all the time (2) Fever with chills Assessment & Plan: due to the above, continue tylenol with wide spectrum antibiotics (3) Sepsis Assessment & Plan: due to the above, continue wide spectrum antibiotics pending blood culture (4) Elevated liver enzymes Assessment & Plan: suspect liver shock due to sepsis , will order hepatitis panel, close monitor of LFT, and US of the liver to rule out gall stone (5) Abdominal wall cellulitis Assessment & Plan: he will be already on wide spectrum antibiotics , continue local wound care . Subjective Allergies: Coded Allergies: NO KNOWN DRUG ALLERGIES (Unverified Allergy, Unknown, 09/20/15) Objective Vital Signs Last 24 Hour Vital Signs Date Time Temp Pulse Resp B/P (MAP) Pulse Ox O2 Delivery O2 Flow Rate FiO2 07/20/18 17:56 Nasal Cannula 3.0 07/20/18 17:52 99.8 101 22 114/95 96 Nasal Cannula 5.0 07/20/18 14:46 99.9 07/20/18 14:00 100.9 95 13 115/97 93 Nasal Cannula 07/20/18 14:00 95 13 Nasal Cannula 93 07/20/18 13:27 97.9 128/48 Height (Feet): 5 Height (Inches): 5.00 Weight (Pounds): 110 Microbiology Date/Time Source Procedure Growth Status 07/20/18 13:45 Nasal Nares Influenza Types A,B Antigen (MAULIK) - Final Complete Laboratory Tests Test 07/20/18 13:30 07/20/18 13:45 07/20/18 14:20 Sodium Level 127 MMOL/L (136-145) L Potassium Level 4.4 MMOL/L (3.5-5.1) Chloride Level 95 MMOL/L (98-107) L Carbon Dioxide Level 25 MMOL/L (21-32) Anion Gap 7 mmol/L (5-15) Blood Urea Nitrogen 24 mg/dL (7-18) H Creatinine 0.5 MG/DL (0.55-1.30) L Estimat Glomerular Filtration Rate mL/min (>60) Glucose Level 109 MG/DL (74-106) H Calcium Level 8.8 MG/DL (8.5-10.1) Magnesium Level 1.8 MG/DL (1.8-2.4) Total Bilirubin 1.3 MG/DL (0.2-1.0) H Direct Bilirubin 0.6 MG/DL (0.0-0.3) H Aspartate Amino Transf (AST/SGOT) 105 U/L (15-37) H Alanine Aminotransferase (ALT/SGPT) 89 U/L (12-78) H Alkaline Phosphatase 136 U/L (46-116) H Total Creatine Kinase 88 U/L (26-308) Pro-B-Type Natriuretic Peptide 1247 pg/mL (0-125) H Total Protein 7.5 G/DL (6.4-8.2) Albumin 2.5 G/DL (3.4-5.0) L Globulin 5.0 g/dL Albumin/Globulin Ratio 0.5 (1.0-2.7) L White Blood Count 9.8 K/UL (4.8-10.8) Red Blood Count 3.83 M/UL (4.70-6.10) L Hemoglobin 12.3 G/DL (14.2-18.0) L Hematocrit 35.6 % (42.0-52.0) L Mean Corpuscular Volume 93 FL (80-99) Mean Corpuscular Hemoglobin 32.2 PG (27.0-31.0) H Mean Corpuscular Hemoglobin Concent 34.6 G/DL (32.0-36.0) Red Cell Distribution Width 10.0 % (11.6-14.8) L Platelet Count 181 K/UL (150-450) Mean Platelet Volume 7.5 FL (6.5-10.1) Neutrophils (%) (Auto) 74.3 % (45.0-75.0) Lymphocytes (%) (Auto) 13.2 % (20.0-45.0) L Monocytes (%) (Auto) 11.9 % (1.0-10.0) H Eosinophils (%) (Auto) 0.0 % (0.0-3.0) Basophils (%) (Auto) 0.6 % (0.0-2.0) Prothrombin Time 11.5 SEC (9.30-11.50) Prothromb Time International Ratio 1.1 (0.9-1.1) Activated Partial Thromboplast Time 32 SEC (23-33) Lactic Acid Level 1.40 mmol/L (0.4-2.0) Troponin I 0.011 ng/mL (0.000-0.056) C-Reactive Protein, Quantitative 4.8 mg/dL (0.00-0.90) H Urine Color Yellow Urine Appearance Clear Urine pH 5 (4.5-8.0) Urine Specific [place] 1.020 (1.005-1.035) Urine Protein 1+ (NEGATIVE) H Urine Glucose (UA) Negative (NEGATIVE) Urine Ketones Negative (NEGATIVE) Urine Blood 2+ (NEGATIVE) H Urine Nitrite Negative (NEGATIVE) Urine Bilirubin Negative (NEGATIVE) Urine Urobilinogen 1 MG/DL (0.0-1.0) H Urine Leukocyte Esterase 1+ (NEGATIVE) H Urine RBC 2-4 /HPF (0 - 0) H Urine WBC 0-2 /HPF (0 - 0) Urine Squamous Epithelial Cells Occasional /LPF Urine Amorphous Sediment Few /LPF (NONE) H Urine Bacteria Occasional /HPF (NONE) Urine Mucus Few /LPF (NONE/OCC) H Current Medications Medications (Trade) Dose Ordered Sig/Jovanna Route PRN Reason Start Time Stop Time Status Last Admin Dose Admin Acetaminophen (Tylenol) 650 mg Q4H PRN GT Mild Pain/Temp > 100.5 07/20/18 18:15 08/19/18 18:14 Cefepime HCl 1 gm/ Sodium Chloride 55 ml @ 110 mls/hr Q12H IV 07/20/18 14:00 07/20/18 19:00 07/20/18 14:46 Dextrose/Sodium Chloride 1,000 ml @ 50 mls/hr Q20H IV 07/20/18 18:15 08/19/18 18:14 Heparin Sodium (Porcine) (Heparin 5000 units/ml) 5,000 units EVERY 12 HOURS SUBQ 07/20/18 21:00 08/19/18 20:59 Metoclopramide HCl (Reglan) 10 mg Q6H PRN IVP Nausea & Vomiting 07/20/18 18:15 08/19/18 18:14 Pantoprazole (Protonix) 40 mg EVERY 12 HOURS IVP 07/20/18 21:00 08/19/18 20:59 Piperacillin Sod/ Tazobactam Sod 3.375 gm/Dextrose 110 ml @ 27.5 mls/hr EVERY 8 HOURS IVPB 07/20/18 22:00 07/25/18 21:59 Tramadol HCl (Ultram) 25 mg Q8H GT 07/20/18 18:30 07/27/18 18:29 Spencer Carcamo M.D. Jul 20, 2018 18:42
--- NOTE | 2018-07-20 19:30 | History and Physical Report ---
DATE OF ADMISSION: 07/20/2018 HISTORY OF PRESENT ILLNESS: The patient is an 83-year-old, a resident of [facility], recently taken off hospice. The patient had over 105 fever and lethargy. The patient was transferred to the emergency room for evaluation. After initial evaluation, he is being admitted for further management. PAST MEDICAL HISTORY: Dementia, hypothyroidism, previous UTI, GT tube, malnutrition, anemia, and hypertension. MEDICATIONS: According to the list. PHYSICAL EXAMINATION: GENERAL: The patient is nonverbal and lethargic. VITAL SIGNS: T-max of 100.9, tachycardic 101, blood pressure 128/48, and respiratory rate is variable between 13 to 22. HEENT: The patient is in position. Somewhat contracted upper and lower extremities. Emaciated. Bitemporal wasting. Pale. Keeps the mouth closed. NECK: Rigid to all direction. LUNGS: Poor inspiratory effort. Decreased breath sounds over the bases, mainly over the left. HEART: Tachycardic. Occasionally irregular beats. ABDOMEN: Soft. GT tube in place. EXTREMITIES: Lower extremities somewhat contracted. LABORATORY AND DIAGNOSTIC DATA: Laboratory results, hemoglobin 12.3 and WBCs 9.8. Sodium 127 and BUN 24. AST and ALT slightly elevated. Albumin 2.5. Urine, 1+ protein, 4 RBCs, 2 WBCs, and 1+ leukocyte esterase. Chest x-ray, infiltrate over the left perihilar region of the left lung. IMPRESSION: This 83-year-old male presented with pneumonia, fever, and urinary tract infection. Other conditions, malnutrition, hyponatremia, PEG, anemia, dementia, and elevated liver function tests. The patient previously on hospice. Currently, DNR/DNI. PLAN: The patient will be started on D5 normal saline. GT feeding. Zosyn. Blood and urine cultures are pending. IV Protonix will be given. Tylenol for pain and also for fever and Reglan p.r.n. for nausea or vomiting. Pulmonary and ID consult is requested. According to how the patient's condition evolves, we will make the proper changes in our future management. Da Davis M.D. DR: TENNILLE JOB#: [id number] CC:
[2018-07-20 20:00] VITALS: BP 154/60
[2018-07-20] MEDS ORDERED: MORPHINE S20 MG/5 ML SL ×2 (20:02→20:58)
[2018-07-20] MEDS: traMADol 50mg tab GT SCH (20:24)
[2018-07-20] MEDS: Pantoprazole Inj IVP SCH (21:17)
[2018-07-20] MEDS: Piperacillin/Tazobactam 3.375 GM in D5W 110 ML IVPB SCH (21:17)
[2018-07-20] MEDS: Heparin 5000 units/ml inj SUBQ SCH (21:18)
[2018-07-21] VITALS: BP 115/64
[2018-07-21] MEDS: traMADol 50mg tab GT SCH ×3 (02:21→20:01)
[2018-07-21 04:00] VITALS: BP 128/68
[2018-07-21] MEDS: Piperacillin/Tazobactam 3.375 GM in D5W 110 ML IVPB SCH ×3 (05:20→21:36)
[2018-07-21 06:30] LABS: BASOPHILS % (AUTO) 0.7 % (0.0-2.0); HEMATOCRIT 27.8 % (42.0-52.0); HEMOGLOBIN 9.6 G/DL (14.2-18.0); LYMPHOCYTES % (AUTO) 11.6 % (20.0-45.0); MEAN CORPUSCULAR VOLUME 94 FL (80-99); MONOCYTES % (AUTO) 8.3 % (1.0-10.0); NEUTROPHILS % (AUTO) 79.4 % (45.0-75.0); PLATELET COUNT 139 K/UL (150-450); RED BLOOD COUNT 2.98 M/UL (4.70-6.10); RED CELL DISTRIBUTION WIDTH 10.3 % (11.6-14.8); WHITE BLOOD COUNT 11.3 K/UL (4.8-10.8)
[2018-07-21 07:15] LABS: ALANINE AMINOTRANSFERASE 66 U/L (12-78); ALBUMIN/GLOBULIN RATIO 0.5 (1.0-2.7); ALKALINE PHOSPHATASE 91 U/L (46-116); ANION GAP 5 mmol/L (5-15); ASPARTATE AMINO TRANSFERASE 70 U/L (15-37); BILIRUBIN,TOTAL 1.2 MG/DL (0.2-1.0); BLOOD UREA NITROGEN 24 mg/dL (7-18); CALCIUM 8.1 MG/DL (8.5-10.1); CARBON DIOXIDE 25 MMOL/L (21-32); CHLORIDE 100 MMOL/L (98-107); CHOLESTEROL 62 MG/DL (< 200); CREATININE 0.6 MG/DL (0.55-1.30); FERRITIN 372 NG/ML (8-388); GAMMA GLUTAMYL TRANSPEPTIDASE 56 U/L (5-85); HDL CHOLESTEROL 34 MG/DL (40-60); PHOSPHORUS 2.1 MG/DL (2.5-4.9); POTASSIUM 4.3 MMOL/L (3.5-5.1); SODIUM 130 MMOL/L (136-145); TRIGLYCERIDES 25 MG/DL (30-150)
[2018-07-21 07:19] LABS: BILIRUBIN,DIRECT 0.7 MG/DL (0.0-0.3)
[2018-07-21 07:53] LABS: % IRON SATURATION 15 % (15-50); IRON 30 ug/dL (50-175); TOTAL IRON BINDING CAPACITY 203 ug/dL (250-450)
[2018-07-21 08:00] VITALS: BP 126/44
[2018-07-21] MEDS: Heparin 5000 units/ml inj SUBQ SCH ×2 (09:00→19:54)
[2018-07-21] MEDS: Pantoprazole Inj IVP SCH ×2 (09:35→20:00)
[2018-07-21] MEDS ORDERED: Potassium Phosphate 20 MM in NS 275 ML IV SCH (10:00)
--- NOTE | 2018-07-21 11:09 | General Progress Note ---
Assessment/Plan Problem List: (1) Aspiration pneumonia ICD Codes: J69.0 - Pneumonitis due to inhalation of food and vomit SNOMED: 307874454 (2) Hyponatremia ICD Codes: E87.1 - Hypo-osmolality and hyponatremia SNOMED: 29710284 (3) Hypoalbuminemia ICD Codes: E88.09 - Other disorders of plasma-protein metabolism, not elsewhere classified SNOMED: 472443628 (4) Anemia ICD Codes: D64.9 - Anemia, unspecified SNOMED: 838680930 (5) Elevated liver enzymes ICD Codes: R74.8 - Abnormal levels of other serum enzymes SNOMED: 936799940 Status: stable Status Narrative pneumonia Malnutrition UTI HypoNatremia PEG Anemia Dementia elevated LFTs Previously on Hospice DNR DNI Assessment/Plan replace mag phos K as needed Antibiotics pulm toilet monitor labs lytes per ID and pulm advise Subjective ROS Limited/Unobtainable: Yes Constitutional: Reports: other - non verbal Allergies: Coded Allergies: NO KNOWN DRUG ALLERGIES (Unverified Allergy, Unknown, 09/20/15) Objective Last 24 Hour Vital Signs Date Time Temp Pulse Resp B/P (MAP) Pulse Ox O2 Delivery O2 Flow Rate FiO2 07/21/18 08:00 98.1 92 19 126/44 (71) 98 07/21/18 04:00 98.7 83 18 128/68 (88) 95 07/21/18 04:00 81 07/21/18 00:00 99.9 86 22 115/64 (81) 96 07/21/18 00:00 91 07/20/18 21:00 Nasal Cannula 3.0 07/20/18 20:00 95 07/20/18 20:00 97.4 101 25 154/60 (91) 96 07/20/18 17:56 Nasal Cannula 3.0 07/20/18 17:52 99.8 101 22 114/95 96 Nasal Cannula 5.0 07/20/18 17:50 100.3 98 18 135/59 (84) 96 07/20/18 14:46 99.9 07/20/18 14:00 100.9 95 13 115/97 93 Nasal Cannula 07/20/18 14:00 95 13 Nasal Cannula 93 07/20/18 13:27 97.9 128/48 Intake and Output 07/20/18 07/21/18 18:59 06:59 # Voids 3 # Bowel Movements 3 2 Laboratory Tests 07/20/18 13:30: Sodium Level 127L, Potassium Level 4.4, Chloride Level 95L, Carbon Dioxide Level 25, Anion Gap 7, Blood Urea Nitrogen 24H, Creatinine 0.5L, Estimat Glomerular Filtration Rate , Glucose Level 109H, Calcium Level 8.8, Magnesium Level 1.8, Total Bilirubin 1.3H, Direct Bilirubin 0.6H, Aspartate Amino Transf ( AST/SGOT) 105H, Alanine Aminotransferase (ALT/SGPT) 89H, Alkaline Phosphatase 136H, Total Creatine Kinase 88, Pro-B-Type Natriuretic Peptide 1247H, Total Protein 7.5, Albumin 2.5L, Globulin 5.0, Albumin/Globulin Ratio 0.5L 07/20/18 13:45: White Blood Count 9.8, Red Blood Count 3.83L, Hemoglobin 12.3L, Hematocrit 35.6L , Mean Corpuscular Volume 93, Mean Corpuscular Hemoglobin 32.2H, Mean Corpuscular Hemoglobin Concent 34.6, Red Cell Distribution Width 10.0L, Platelet Count 181, Mean Platelet Volume 7.5, Neutrophils (%) (Auto) 74.3, Lymphocytes (%) (Auto) 13.2L, Monocytes (%) (Auto) 11.9H, Eosinophils (%) (Auto ) 0.0, Basophils (%) (Auto) 0.6, Prothrombin Time 11.5, Prothromb Time International Ratio 1.1, Activated Partial Thromboplast Time 32, Lactic Acid Level 1.40, Troponin I 0.011, C-Reactive Protein, Quantitative 4.8H 07/20/18 14:20: Urine Color Yellow, Urine Appearance Clear, Urine pH 5, Urine Specific [place] 1.020, Urine Protein 1+H, Urine Glucose (UA) Negative, Urine Ketones Negative, Urine Blood 2+H, Urine Nitrite Negative, Urine Bilirubin Negative, Urine Urobilinogen 1H, Urine Leukocyte Esterase 1+H, Urine RBC 2-4H, Urine WBC 0-2, Urine Squamous Epithelial Cells Occasional, Urine Amorphous Sediment FewH, Urine Bacteria Occasional, Urine Mucus FewH 07/20/18 19:05: Hepatitis A IgM Antibody [Pending], Hepatitis B Surface Antigen [Pending], Hepatitis B Core IgM Antibody [Pending], Hepatitis C Antibody [Pending] 07/21/18 05:55: White Blood Count 11.3H, Red Blood Count 2.98L, Hemoglobin 9.6L, Hematocrit 27.8L, Mean Corpuscular Volume 94, Mean Corpuscular Hemoglobin 32.4H, Mean Corpuscular Hemoglobin Concent 34.7, Red Cell Distribution Width 10.3L, Platelet Count 139L, Mean Platelet Volume 6.8, Neutrophils (%) (Auto) 79.4H, Lymphocytes (%) (Auto) 11.6L, Monocytes (%) (Auto) 8.3, Eosinophils (%) (Auto) 0.0, Basophils (%) (Auto) 0.7, Sodium Level 130L, Potassium Level 4.3, Chloride Level 100, Carbon Dioxide Level 25, Anion Gap 5, Blood Urea Nitrogen 24H, Creatinine 0.6, Estimat Glomerular Filtration Rate , Glucose Level 136H, Uric Acid 2.0L, Calcium Level 8.1L, Phosphorus Level 2.1L, Magnesium Level 1.6L, Iron Level 30L, Total Iron Binding Capacity 203L, Percent Iron Saturation 15, Unsaturated Iron Binding 173, Ferritin 372, Total Bilirubin 1.2H, Direct Bilirubin 0.7H, Gamma Glutamyl Transpeptidase 56, Aspartate Amino Transf (AST/ SGOT) 70H, Alanine Aminotransferase (ALT/SGPT) 66, Alkaline Phosphatase 91, Troponin I 0.036, Pro-B-Type Natriuretic Peptide 4079H, Total Protein 6.2L, Albumin 2.0L, Globulin 4.2, Albumin/Globulin Ratio 0.5L, Triglycerides Level 25L , Cholesterol Level 62, LDL Cholesterol 40, HDL Cholesterol 34L, Cholesterol/ HDL Ratio 1.8L, Vitamin B12 Level 455, Folate 22.9, Thyroid Stimulating Hormone (TSH) 5.674H Height (Feet): 5 Height (Inches): 5.00 Weight (Pounds): 117 General Appearance: no apparent distress Neck: limited range of motion Cardiovascular: tachycardia Respiratory/Chest: decreased breath sounds Abdomen: soft, other - PEG Extremities: other - contracted Objective no other changes Da Davis MD Jul 21, 2018 11:09
[2018-07-21 12:00] VITALS: BP 100/53
--- NOTE | 2018-07-21 12:19 | Consultation ---
History of Present Illness General Date patient seen: Jul 21, 2018 Chief Complaint: Fever Present Illness HPI 83 year old male with end stage dementia, Bed bound, cachectic with Gtube, [facility] resident presented from nursing facility with reports of fevers Pt used to be on hospice but he got just discharged because he was stable over. Pt looks chronically ill, and can't give any history. Allergies: Coded Allergies: NO KNOWN DRUG ALLERGIES (Unverified Allergy, Unknown, 09/20/15) Medication History Scheduled Ranitidine Hcl* (Zantac*), 150 MG ORAL TWICE A DAY Scheduled PRN Acetaminophen 160MG/5ML* (Acetaminophen*), 20 ML ORAL Q6HR PRN for For Pain, ( Reported) Morphine Sulfate (Morphine Sulfate), 5 MG SL Q2HR PRN for Severe Pain (Pain Scale 7-10), (Reported) Morphine Sulfate (Morphine Sulfate), 5 MG SL Q2HR PRN for Shortness of Breath, ( Reported) Discontinued Medications Amoxicillin/Potassium Clav 500-125 Tablet* (Augmentin 500-125 Tablet*), 1 TAB ORAL THREE TIMES A DAY Discontinued Reason: Therapy completed Bacitracin (Bacitracin*), 1 PACKET TOPIC, (Reported) Discontinued Reason: Therapy completed Patient History Healthcare decision maker N Resuscitation status Do Not Resuscitate Advanced Directive on File Yes Past Medical/Surgical History Past Medical/Surgical History: (1) Dementia (2) CAD (coronary artery disease) (3) S/P percutaneous endoscopic gastrostomy (PEG) tube placement Review of Systems All Other Systems: negative except mentioned in HPI Physical Exam General Appearance: cachetic Lines, tubes and drains: peripheral HEENT: normocephalic, atraumatic Neck: non-tender, normal alignment Respiratory/Chest: chest wall non-tender, lungs clear Cardiovascular/Chest: normal peripheral pulses, normal rate Abdomen: normal bowel sounds Genitourinary/Rectal: normal genital exam Extremities: normal range of motion Skin Exam: normal pigmentation Last 24 Hour Vital Signs Date Time Temp Pulse Resp B/P (MAP) Pulse Ox O2 Delivery O2 Flow Rate FiO2 07/21/18 08:00 98.1 92 19 126/44 (71) 98 07/21/18 04:00 98.7 83 18 128/68 (88) 95 07/21/18 04:00 81 07/21/18 00:00 99.9 86 22 115/64 (81) 96 07/21/18 00:00 91 07/20/18 21:00 Nasal Cannula 3.0 07/20/18 20:00 95 07/20/18 20:00 97.4 101 25 154/60 (91) 96 07/20/18 17:56 Nasal Cannula 3.0 07/20/18 17:52 99.8 101 22 114/95 96 Nasal Cannula 5.0 07/20/18 17:50 100.3 98 18 135/59 (84) 96 07/20/18 14:46 99.9 07/20/18 14:00 100.9 95 13 115/97 93 Nasal Cannula 07/20/18 14:00 95 13 Nasal Cannula 93 07/20/18 13:27 97.9 128/48 Intake and Output 07/20/18 07/21/18 18:59 06:59 # Voids 3 # Bowel Movements 3 2 Laboratory Tests Test 07/20/18 13:30 07/20/18 13:45 07/20/18 14:20 07/20/18 19:05 Sodium Level 127 MMOL/L (136-145) L Potassium Level 4.4 MMOL/L (3.5-5.1) Chloride Level 95 MMOL/L (98-107) L Carbon Dioxide Level 25 MMOL/L (21-32) Anion Gap 7 mmol/L (5-15) Blood Urea Nitrogen 24 mg/dL (7-18) H Creatinine 0.5 MG/DL (0.55-1.30) L Estimat Glomerular Filtration Rate mL/min (>60) Glucose Level 109 MG/DL (74-106) H Calcium Level 8.8 MG/DL (8.5-10.1) Magnesium Level 1.8 MG/DL (1.8-2.4) Total Bilirubin 1.3 MG/DL (0.2-1.0) H Direct Bilirubin 0.6 MG/DL (0.0-0.3) H Aspartate Amino Transf (AST/SGOT) 105 U/L (15-37) H Alanine Aminotransferase (ALT/SGPT) 89 U/L (12-78) H Alkaline Phosphatase 136 U/L (46-116) H Total Creatine Kinase 88 U/L (26-308) Pro-B-Type Natriuretic Peptide 1247 pg/mL (0-125) H Total Protein 7.5 G/DL (6.4-8.2) Albumin 2.5 G/DL (3.4-5.0) L Globulin 5.0 g/dL Albumin/Globulin Ratio 0.5 (1.0-2.7) L White Blood Count 9.8 K/UL (4.8-10.8) Red Blood Count 3.83 M/UL (4.70-6.10) L Hemoglobin 12.3 G/DL (14.2-18.0) L Hematocrit 35.6 % (42.0-52.0) L Mean Corpuscular Volume 93 FL (80-99) Mean Corpuscular Hemoglobin 32.2 PG (27.0-31.0) H Mean Corpuscular Hemoglobin Concent 34.6 G/DL (32.0-36.0) Red Cell Distribution Width 10.0 % (11.6-14.8) L Platelet Count 181 K/UL (150-450) Mean Platelet Volume 7.5 FL (6.5-10.1) Neutrophils (%) (Auto) 74.3 % (45.0-75.0) Lymphocytes (%) (Auto) 13.2 % (20.0-45.0) L Monocytes (%) (Auto) 11.9 % (1.0-10.0) H Eosinophils (%) (Auto) 0.0 % (0.0-3.0) Basophils (%) (Auto) 0.6 % (0.0-2.0) Prothrombin Time 11.5 SEC (9.30-11.50) Prothromb Time International Ratio 1.1 (0.9-1.1) Activated Partial Thromboplast Time 32 SEC (23-33) Lactic Acid Level 1.40 mmol/L (0.4-2.0) Troponin I 0.011 ng/mL (0.000-0.056) C-Reactive Protein, Quantitative 4.8 mg/dL (0.00-0.90) H Urine Color Yellow Urine Appearance Clear Urine pH 5 (4.5-8.0) Urine Specific [place] 1.020 (1.005-1.035) Urine Protein 1+ (NEGATIVE) H Urine Glucose (UA) Negative (NEGATIVE) Urine Ketones Negative (NEGATIVE) Urine Blood 2+ (NEGATIVE) H Urine Nitrite Negative (NEGATIVE) Urine Bilirubin Negative (NEGATIVE) Urine Urobilinogen 1 MG/DL (0.0-1.0) H Urine Leukocyte Esterase 1+ (NEGATIVE) H Urine RBC 2-4 /HPF (0 - 0) H Urine WBC 0-2 /HPF (0 - 0) Urine Squamous Epithelial Cells Occasional /LPF Urine Amorphous Sediment Few /LPF (NONE) H Urine Bacteria Occasional /HPF (NONE) Urine Mucus Few /LPF (NONE/OCC) H Hepatitis A IgM Antibody Pending Hepatitis B Surface Antigen Pending Hepatitis B Core IgM Antibody Pending Hepatitis C Antibody Pending Test 07/21/18 05:55 White Blood Count 11.3 K/UL (4.8-10.8) H Red Blood Count 2.98 M/UL (4.70-6.10) L Hemoglobin 9.6 G/DL (14.2-18.0) L Hematocrit 27.8 % (42.0-52.0) L Mean Corpuscular Volume 94 FL (80-99) Mean Corpuscular Hemoglobin 32.4 PG (27.0-31.0) H Mean Corpuscular Hemoglobin Concent 34.7 G/DL (32.0-36.0) Red Cell Distribution Width 10.3 % (11.6-14.8) L Platelet Count 139 K/UL (150-450) L Mean Platelet Volume 6.8 FL (6.5-10.1) Neutrophils (%) (Auto) 79.4 % (45.0-75.0) H Lymphocytes (%) (Auto) 11.6 % (20.0-45.0) L Monocytes (%) (Auto) 8.3 % (1.0-10.0) Eosinophils (%) (Auto) 0.0 % (0.0-3.0) Basophils (%) (Auto) 0.7 % (0.0-2.0) Sodium Level 130 MMOL/L (136-145) L Potassium Level 4.3 MMOL/L (3.5-5.1) Chloride Level 100 MMOL/L (98-107) Carbon Dioxide Level 25 MMOL/L (21-32) Anion Gap 5 mmol/L (5-15) Blood Urea Nitrogen 24 mg/dL (7-18) H Creatinine 0.6 MG/DL (0.55-1.30) Estimat Glomerular Filtration Rate mL/min (>60) Glucose Level 136 MG/DL (74-106) H Uric Acid 2.0 MG/DL (2.6-7.2) L Calcium Level 8.1 MG/DL (8.5-10.1) L Phosphorus Level 2.1 MG/DL (2.5-4.9) L Magnesium Level 1.6 MG/DL (1.8-2.4) L Iron Level 30 ug/dL (50-175) L Total Iron Binding Capacity 203 ug/dL (250-450) L Percent Iron Saturation 15 % (15-50) Unsaturated Iron Binding 173 ug/dL (112-346) Ferritin 372 NG/ML (8-388) Total Bilirubin 1.2 MG/DL (0.2-1.0) H Direct Bilirubin 0.7 MG/DL (0.0-0.3) H Gamma Glutamyl Transpeptidase 56 U/L (5-85) Aspartate Amino Transf (AST/SGOT) 70 U/L (15-37) H Alanine Aminotransferase (ALT/SGPT) 66 U/L (12-78) Alkaline Phosphatase 91 U/L (46-116) Troponin I 0.036 ng/mL (0.000-0.056) Pro-B-Type Natriuretic Peptide 4079 pg/mL (0-125) H Total Protein 6.2 G/DL (6.4-8.2) L Albumin 2.0 G/DL (3.4-5.0) L Globulin 4.2 g/dL Albumin/Globulin Ratio 0.5 (1.0-2.7) L Triglycerides Level 25 MG/DL (30-150) L Cholesterol Level 62 MG/DL (< 200) LDL Cholesterol 40 mg/dL (<100) HDL Cholesterol 34 MG/DL (40-60) L Cholesterol/HDL Ratio 1.8 (3.3-4.4) L Vitamin B12 Level 455 PG/ML (193-986) Folate 22.9 NG/ML (8.6-58.9) Thyroid Stimulating Hormone (TSH) 5.674 uiU/mL (0.358-3.740) Microbiology Date/Time Source Procedure Growth Status 07/20/18 13:45 Nasal Nares Influenza Types A,B Antigen (MAULIK) - Final Complete Height (Feet): 5 Height (Inches): 5.00 Weight (Pounds): 117 Medications Current Medications Medications (Trade) Dose Ordered Sig/Jovanna Route PRN Reason Start Time Stop Time Status Last Admin Dose Admin Acetaminophen (Tylenol) 650 mg Q4H PRN GT Mild Pain/Temp > 100.5 07/20/18 18:15 08/19/18 18:14 Heparin Sodium (Porcine) (Heparin 5000 units/ml) 5,000 units EVERY 12 HOURS SUBQ 07/20/18 21:00 08/19/18 20:59 07/20/18 21:18 Iron Sucrose 200 mg/Sodium Chloride 120 ml @ 240 mls/hr ONCE IV 07/21/18 16:00 07/21/18 18:00 Levothyroxine Sodium (Synthroid) 25 mcg DAILY@0630 GT 07/22/18 06:30 08/21/18 06:29 Metoclopramide HCl (Reglan) 10 mg Q6H PRN IVP Nausea & Vomiting 07/20/18 18:15 08/19/18 18:14 Pantoprazole (Protonix) 40 mg EVERY 12 HOURS IVP 07/20/18 21:00 08/19/18 20:59 07/21/18 09:35 Piperacillin Sod/ Tazobactam Sod 3.375 gm/Dextrose 110 ml @ 27.5 mls/hr EVERY 8 HOURS IVPB 07/20/18 22:00 07/25/18 21:59 07/21/18 05:20 Potassium Phosphate 20 mm/ Sodium Chloride 281.6667 ml @ 46.944 m... ONCE IV 07/21/18 10:00 07/21/18 18:00 07/21/18 11:28 Tramadol HCl (Ultram) 25 mg Q8H GT 07/20/18 18:30 07/27/18 18:29 07/21/18 11:21 Vancomycin HCl (Vanco rx to dose) 1 ea DAILY PRN MISC Per rx protocol 07/20/18 18:45 08/19/18 18:44 Vancomycin/Sodium Chloride 250 ml @ 166.667 mls/hr Q24H IVPB 07/21/18 17:00 07/26/18 16:59 Assessment/Plan Problem List: (1) Aspiration pneumonia ICD Codes: J69.0 - Pneumonitis due to inhalation of food and vomit SNOMED: 141793339 (2) Sepsis ICD Codes: A41.9 - Sepsis, unspecified organism SNOMED: 44172710 (3) CAD (coronary artery disease) ICD Codes: I25.10 - Atherosclerotic heart disease of [place] coronary artery without angina pectoris SNOMED: 97167629 (4) Severe protein-calorie malnutrition ICD Codes: E43 - Unspecified severe protein-calorie malnutrition SNOMED: 177257593 (5) Anemia ICD Codes: D64.9 - Anemia, unspecified SNOMED: 317652944 (6) S/P percutaneous endoscopic gastrostomy (PEG) tube placement ICD Codes: Z93.1 - Gastrostomy status SNOMED: 752736701 (7) Dementia ICD Codes: F03.90 - Unspecified dementia without behavioral disturbance SNOMED: 83400022 Assessment/Plan respiratory treatment iv abx check cultures symptomatic treatment consider end of life care, including stopping the feeding tube. doubt that the DOPA will agree. Ezio Gallegos MD Jul 21, 2018 12:19
--- NOTE | 2018-07-21 14:31 | Infectious Diseases Prog Note ---
Assessment/Plan Problems: (1) Aspiration pneumonia Assessment & Plan: with left perihilar infiltrates , await sputum culture, continue vancomycin with zosyn empirically, recommend aspiration precaution and keep HOB > 30 degree all the time (2) Sepsis Assessment & Plan: due to the above, continue wide spectrum antibiotics pending blood culture (3) Abdominal wall cellulitis Assessment & Plan: he will be already on wide spectrum antibiotics , continue local wound care . (4) Fever Assessment & Plan: due to the above , continue tylenol and wide spectrum antibiotics Subjective ROS Limited/Unobtainable: Yes Allergies: Coded Allergies: NO KNOWN DRUG ALLERGIES (Unverified Allergy, Unknown, 09/20/15) Subjective he was comfortable, lying in bed, contracted, open eyes spontaneously . afebrile Objective Vital Signs Last 24 Hour Vital Signs Date Time Temp Pulse Resp B/P (MAP) Pulse Ox O2 Delivery O2 Flow Rate FiO2 07/21/18 12:00 98.1 81 20 100/53 (69) 100 07/21/18 11:50 80 07/21/18 11:50 80 07/21/18 09:00 Nasal Cannula 3.0 07/21/18 08:00 98.1 92 19 126/44 (71) 98 07/21/18 07:50 84 07/21/18 04:00 98.7 83 18 128/68 (88) 95 07/21/18 04:00 81 07/21/18 00:00 99.9 86 22 115/64 (81) 96 07/21/18 00:00 91 07/20/18 21:00 Nasal Cannula 3.0 07/20/18 20:00 95 07/20/18 20:00 97.4 101 25 154/60 (91) 96 07/20/18 17:56 Nasal Cannula 3.0 07/20/18 17:52 99.8 101 22 114/95 96 Nasal Cannula 5.0 07/20/18 17:50 100.3 98 18 135/59 (84) 96 07/20/18 14:46 99.9 Height (Feet): 5 Height (Inches): 5.00 Weight (Pounds): 117 General Appearance: WD/WN, no acute distress, cachetic, other - contracted HEENT: normocephalic, anicteric, mucous membranes moist, PERRL, pharynx normal , supple, no JVD Respiratory/Chest: normal breath sounds, no respiratory distress, no accessory muscle use, decreased breath sounds, crackles/rales Cardiovascular: normal peripheral pulses, normal rate, regular rhythm, no gallop/murmur, no JVD Abdomen: normal bowel sounds, soft, non tender, no organomegaly, non distended , no mass, no scars Extremities: no cyanosis, no clubbing Skin: no rash, no lesions, no ulcers Neurologic/Psychiatric: alert Lymphatic: no neck adenopathy, no groin adenopathy Musculoskeletal: normal muscle bulk, no effusion Microbiology Date/Time Source Procedure Growth Status 07/21/18 08:45 Sputum Expectorated Gram Stain - Final Resulted 07/21/18 08:45 Sputum Expectorated Sputum Culture Pending Resulted 07/20/18 13:45 Nasal Nares Influenza Types A,B Antigen (MAULIK) - Final Complete Laboratory Tests Test 07/20/18 19:05 07/21/18 05:55 Hepatitis A IgM Antibody Pending Hepatitis B Surface Antigen Pending Hepatitis B Core IgM Antibody Pending Hepatitis C Antibody Pending White Blood Count 11.3 K/UL (4.8-10.8) H Red Blood Count 2.98 M/UL (4.70-6.10) L Hemoglobin 9.6 G/DL (14.2-18.0) L Hematocrit 27.8 % (42.0-52.0) L Mean Corpuscular Volume 94 FL (80-99) Mean Corpuscular Hemoglobin 32.4 PG (27.0-31.0) H Mean Corpuscular Hemoglobin Concent 34.7 G/DL (32.0-36.0) Red Cell Distribution Width 10.3 % (11.6-14.8) L Platelet Count 139 K/UL (150-450) L Mean Platelet Volume 6.8 FL (6.5-10.1) Neutrophils (%) (Auto) 79.4 % (45.0-75.0) H Lymphocytes (%) (Auto) 11.6 % (20.0-45.0) L Monocytes (%) (Auto) 8.3 % (1.0-10.0) Eosinophils (%) (Auto) 0.0 % (0.0-3.0) Basophils (%) (Auto) 0.7 % (0.0-2.0) Sodium Level 130 MMOL/L (136-145) L Potassium Level 4.3 MMOL/L (3.5-5.1) Chloride Level 100 MMOL/L (98-107) Carbon Dioxide Level 25 MMOL/L (21-32) Anion Gap 5 mmol/L (5-15) Blood Urea Nitrogen 24 mg/dL (7-18) H Creatinine 0.6 MG/DL (0.55-1.30) Estimat Glomerular Filtration Rate mL/min (>60) Glucose Level 136 MG/DL (74-106) H Uric Acid 2.0 MG/DL (2.6-7.2) L Calcium Level 8.1 MG/DL (8.5-10.1) L Phosphorus Level 2.1 MG/DL (2.5-4.9) L Magnesium Level 1.6 MG/DL (1.8-2.4) L Iron Level 30 ug/dL (50-175) L Total Iron Binding Capacity 203 ug/dL (250-450) L Percent Iron Saturation 15 % (15-50) Unsaturated Iron Binding 173 ug/dL (112-346) Ferritin 372 NG/ML (8-388) Total Bilirubin 1.2 MG/DL (0.2-1.0) H Direct Bilirubin 0.7 MG/DL (0.0-0.3) H Gamma Glutamyl Transpeptidase 56 U/L (5-85) Aspartate Amino Transf (AST/SGOT) 70 U/L (15-37) H Alanine Aminotransferase (ALT/SGPT) 66 U/L (12-78) Alkaline Phosphatase 91 U/L (46-116) Troponin I 0.036 ng/mL (0.000-0.056) Pro-B-Type Natriuretic Peptide 4079 pg/mL (0-125) H Total Protein 6.2 G/DL (6.4-8.2) L Albumin 2.0 G/DL (3.4-5.0) L Globulin 4.2 g/dL Albumin/Globulin Ratio 0.5 (1.0-2.7) L Triglycerides Level 25 MG/DL (30-150) L Cholesterol Level 62 MG/DL (< 200) LDL Cholesterol 40 mg/dL (<100) HDL Cholesterol 34 MG/DL (40-60) L Cholesterol/HDL Ratio 1.8 (3.3-4.4) L Vitamin B12 Level 455 PG/ML (193-986) Folate 22.9 NG/ML (8.6-58.9) Thyroid Stimulating Hormone (TSH) 5.674 uiU/mL (0.358-3.740) Current Medications Medications (Trade) Dose Ordered Sig/Jovanna Route PRN Reason Start Time Stop Time Status Last Admin Dose Admin Acetaminophen (Tylenol) 650 mg Q4H PRN GT Mild Pain/Temp > 100.5 07/20/18 18:15 08/19/18 18:14 Heparin Sodium (Porcine) (Heparin 5000 units/ml) 5,000 units EVERY 12 HOURS SUBQ 07/20/18 21:00 08/19/18 20:59 07/20/18 21:18 Iron Sucrose 200 mg/Sodium Chloride 120 ml @ 240 mls/hr ONCE IV 07/21/18 16:00 07/21/18 18:00 Levothyroxine Sodium (Synthroid) 25 mcg DAILY@0630 GT 07/22/18 06:30 08/21/18 06:29 Metoclopramide HCl (Reglan) 10 mg Q6H PRN IVP Nausea & Vomiting 07/20/18 18:15 08/19/18 18:14 Pantoprazole (Protonix) 40 mg EVERY 12 HOURS IVP 07/20/18 21:00 08/19/18 20:59 07/21/18 09:35 Piperacillin Sod/ Tazobactam Sod 3.375 gm/Dextrose 110 ml @ 27.5 mls/hr EVERY 8 HOURS IVPB 07/20/18 22:00 07/25/18 21:59 07/21/18 05:20 Potassium Phosphate 20 mm/ Sodium Chloride 281.6667 ml @ 46.944 m... ONCE IV 07/21/18 10:00 07/21/18 18:00 07/21/18 11:28 Tramadol HCl (Ultram) 25 mg Q8H GT 07/20/18 18:30 07/27/18 18:29 07/21/18 11:21 Vancomycin HCl (Vanco rx to dose) 1 ea DAILY PRN MISC Per rx protocol 07/20/18 18:45 08/19/18 18:44 Vancomycin/Sodium Chloride 250 ml @ 166.667 mls/hr Q24H IVPB 07/21/18 17:00 07/26/18 16:59 Spencer Carcamo M.D. Jul 21, 2018 14:31
[2018-07-21 16:00] VITALS: BP 108/53
[2018-07-21] MEDS ORDERED: Iron Sucrose 200 MG in NS 110 ML IV SCH (16:00)
[2018-07-21] MEDS ORDERED: Vancomycin 750mg/NS 250ml IVPB SCH ×2 (17:00→19:30)
--- NOTE | 2018-07-21 17:42 | Cardiology Report ---
APPROVED REPORT EKG Measurement Heart [id number] Normal sinus rhythm Left anterior fascicular block Possible Lateral infarct, age undetermined Inferior infarct, age undetermined Abnormal ECG
[2018-07-21 20:00] VITALS: BP 104/46
--- NOTE | 2018-07-21 23:15 | Consultation ---
DATE OF CONSULTATION: 07/20/2018 INFECTIOUS DISEASE CONSULTATION CONSULTING PHYSICIAN: Spencer Carcamo M.D. REQUESTING PHYSICIAN: Da Davis M.D. REASON FOR CONSULTATION: Aspiration pneumonia with left perihilar infiltrate, fever, chills, and sepsis with abdominal wall cellulitis. Recommendation for antibiotics treatment. HISTORY OF PRESENT ILLNESS: The patient is an 83-year-old male with past medical history of coronary artery disease; anemia; hypertension; dysphagia, status post G-tube placement; encephalopathy; CVA; dementia; spinal stenosis; aphasia; and contraction, was sent to [facility] from [facility] for fever and cough. The patient was found to be hypoxemic in the emergency room with O2 saturation of 93% and had temperature of 97.9 with pulse of 95. The patient's lab showed evidence of urinary tract infection. His chest x-ray showed evidence of left perihilar infiltrates concerning for pneumonia, so he was started on vancomycin and Zosyn empiric coverage and Infectious Disease consultation was requested for antibiotics treatment and further management. The patient had influenza screening in the emergency room, which was negative. As of note, the patient is poor historian, cannot provide any history. History was mainly obtained from the medical record. PAST MEDICAL HISTORY: Significant for hypertension; coronary artery disease; anemia; dementia; CVA; previous UTI; dysphagia, status post G-tube placement; muscle contraction; and hypothyroidism. PAST SURGICAL HISTORY: He had G-tube placement. FAMILY HISTORY: Noncontributory. SOCIAL HISTORY: [facility] No recent drugs, tobacco, or alcohol. ALLERGIES: No known drug allergies. MEDICATIONS: The patient received vancomycin, cefepime, and levofloxacin in the emergency room and he was started also on Zosyn. PHYSICAL EXAMINATION: VITAL SIGNS: Temperature 99.8, pulse 101, respiration 22, blood pressure 114/95, and saturation 96% on 5 L nasal cannula. GENERAL: Elderly male, contracted with G-tube, nonverbal. Makes eye contact. HEENT: Normocephalic and atraumatic. Multiple skin abrasions on his scalp. Pupils are reactive to light. Dry sticky secretion in both eyes. Unable to assess oral mucosa. NECK: Supple. No lymphadenopathy. CARDIOVASCULAR: He is tachycardic. S1 and S2 normal. LUNGS: He had diminished breathing sounds at the bases with crackles on the left side. Normal breathing efforts. ABDOMEN: Soft. Nondistended. Nontender. Mild erythema and redness around the G-tube site area with abdominal redness suggestive of cellulitis. No organomegaly. EXTREMITIES: Contracted with muscle atrophy and skin abrasions. LABORATORY AND DIAGNOSTIC DATA: Labs showed white count of 9.8, hemoglobin of 12.3, and platelet count of 181,000. BUN of 24 and creatinine 0.5. AST of 105, ALT of 89, and alkaline phosphatase of 136. Urinalysis showed +1 leukocyte esterase, wbc's 0 to 2, and occasional bacteria. Microbiology, influenza screening A and B both negative. Imaging, chest x-ray showed left perihilar infiltrates, unclear whether it represents new infiltration. ASSESSMENT AND RECOMMENDATIONS: 1. Aspiration pneumonia with left perihilar infiltrates. We will send sputum culture and start vancomycin with Zosyn empiric coverage. Recommend aspiration precaution and keep head of bed more than 30-degree all the time. Monitor chest x-ray. 2. Fever with chills due to the above. Continue Tylenol and wide-spectrum antibiotics. 3. Sepsis due to the above. Continue wide-spectrum antibiotics. Pending blood culture. 4. Elevated liver enzymes, suspect liver shock due to sepsis. We will order hepatitis panel. Close monitor of liver function tests. Ultrasound of the liver to rule out gallstone. 5. Abdominal wall cellulitis. The patient will be already on wide-spectrum antibiotics. Continue local wound care as needed. Thank you for the consult. ID will continue to follow. Spencer Carcamo M.D. DR: NATHALY JOB#: [id number] CC:
[2018-07-22] VITALS: BP 107/46
[2018-07-22] MEDS: traMADol 50mg tab GT SCH ×3 (03:01→17:54)
[2018-07-22 04:00] VITALS: BP 98/41
[2018-07-22] MEDS: Piperacillin/Tazobactam 3.375 GM in D5W 110 ML IVPB SCH ×3 (06:06→22:00)
[2018-07-22] MEDS ORDERED: Levothyroxine 25mcg tab GT SCH (06:30)
[2018-07-22 07:35] LABS: HEMATOCRIT 25.8 % (42.0-52.0); HEMOGLOBIN 9.1 G/DL (14.2-18.0); MEAN CORPUSCULAR VOLUME 93 FL (80-99); PLATELET COUNT 132 K/UL (150-450); RED BLOOD COUNT 2.78 M/UL (4.70-6.10); RED CELL DISTRIBUTION WIDTH 10.2 % (11.6-14.8); WHITE BLOOD COUNT 8.9 K/UL (4.8-10.8)
[2018-07-22 08:00] VITALS: BP 103/52
[2018-07-22 08:10] LABS: ALANINE AMINOTRANSFERASE 63 U/L (12-78); ALBUMIN 2.3 G/DL (3.4-5.0); ALBUMIN/GLOBULIN RATIO 0.6 (1.0-2.7); ALKALINE PHOSPHATASE 84 U/L (46-116); ANION GAP 4 mmol/L (5-15); ASPARTATE AMINO TRANSFERASE 78 U/L (15-37); BILIRUBIN,TOTAL 0.7 MG/DL (0.2-1.0); BLOOD UREA NITROGEN 20 mg/dL (7-18); CARBON DIOXIDE 28 MMOL/L (21-32); CHLORIDE 101 MMOL/L (98-107); CREATININE 0.5 MG/DL (0.55-1.30); PHOSPHORUS 2.1 MG/DL (2.5-4.9); POTASSIUM 3.6 MMOL/L (3.5-5.1); SODIUM 133 MMOL/L (136-145)
[2018-07-22] MEDS: Heparin 5000 units/ml inj SUBQ SCH ×2 (08:32→21:00)
[2018-07-22] MEDS: Pantoprazole Inj IVP SCH ×2 (08:48→21:00)
[2018-07-22] MEDS ORDERED: Potassium Phosphate 20 MM in NS 275 ML IV SCH (10:00)
[2018-07-22 12:00] VITALS: BP 126/83
--- NOTE | 2018-07-22 12:54 | Pulmonology Progress Note ---
Assessment/Plan Problems: (1) Aspiration pneumonia (2) Sepsis (3) CAD (coronary artery disease) (4) Severe protein-calorie malnutrition (5) Anemia (6) S/P percutaneous endoscopic gastrostomy (PEG) tube placement (7) Dementia Assessment/Plan improving opening eyes check cultures f/u wbc tolerating feeding med/surg Subjective ROS Limited/Unobtainable: No Constitutional: Reports: no symptoms HEENT: Repors: no symptoms Allergies: Coded Allergies: NO KNOWN DRUG ALLERGIES (Unverified Allergy, Unknown, 09/20/15) Objective Last 24 Hour Vital Signs Date Time Temp Pulse Resp B/P (MAP) Pulse Ox O2 Delivery O2 Flow Rate FiO2 07/22/18 12:00 97.9 50 17 126/83 (97) 98 07/22/18 09:00 Nasal Cannula 3.0 07/22/18 08:00 97.5 81 18 103/52 (69) 97 07/22/18 07:38 71 07/22/18 04:00 98.6 72 20 98/41 (60) 100 07/22/18 04:00 69 07/22/18 03:31 98.1 07/22/18 00:00 98.1 71 20 107/46 (66) 99 07/21/18 21:00 Nasal Cannula 3.0 07/21/18 20:00 98.0 82 18 104/46 (65) 96 07/21/18 20:00 76 07/21/18 16:00 98.1 80 19 108/53 (71) 94 07/21/18 15:48 80 Intake and Output 07/21/18 07/22/18 18:59 06:59 Intake Total 730 ml 40 ml Output Total 800 ml 400 ml Balance -70 ml -360 ml Intake Oral 300 ml Free Water 100 ml Tube Feeding 330 ml 40 ml Output Urine Total 800 ml 400 ml # Bowel Movements 1 General Appearance: cachetic HEENT: normocephalic, atraumatic Respiratory/Chest: chest wall non-tender, lungs clear Cardiovascular: normal peripheral pulses, normal rate Abdomen: normal bowel sounds, soft, non tender Extremities: no cyanosis Skin: no rash Lymphatic: no neck adenopathy Microbiology Date/Time Source Procedure Growth Status 07/20/18 13:45 Blood Blood Culture - Preliminary NO GROWTH AFTER 24 HOURS Resulted 07/20/18 13:30 Blood Blood Culture - Preliminary NO GROWTH AFTER 24 HOURS Resulted 07/21/18 08:45 Sputum Expectorated Gram Stain - Final Resulted 07/21/18 08:45 Sputum Culture - Preliminary Gram Negative Bacillus 1 Resulted 07/20/18 13:45 Nasal Nares MRSA Culture - Final NO METHICILLIN RESISTANT STAPH AUREUS... Complete 07/20/18 13:45 Nasal Nares Influenza Types A,B Antigen (MAULIK) - Final Complete 07/20/18 20:45 Indwelling Cath Urine Culture - Preliminary NO GROWTH Resulted 07/20/18 13:45 Rectum VRE Culture - Final NO VANCOMYCIN RESISTANT ENTEROCOCCUS ... Complete 07/20/18 13:45 Rectum - Final NO CARBAPENEM-RESISTANT ENTEROBACTERI... Complete Laboratory Tests 07/22/18 07:04: White Blood Count 8.9, Red Blood Count 2.78L, Hemoglobin 9.1L, Hematocrit 25.8L , Mean Corpuscular Volume 93, Mean Corpuscular Hemoglobin 32.8H, Mean Corpuscular Hemoglobin Concent 35.3, Red Cell Distribution Width 10.2L, Platelet Count 132L, Mean Platelet Volume 7.9, Neutrophils (%) (Auto) , Lymphocytes (%) (Auto) , Monocytes (%) (Auto) , Eosinophils (%) (Auto) , Basophils (%) (Auto) , Differential Total Cells Counted 100, Neutrophils % ( Manual) 78H, Lymphocytes % (Manual) 11L, Monocytes % (Manual) 10, Eosinophils % (Manual) 0, Basophils % (Manual) 0, Band Neutrophils 1, Platelet Estimate DecreasedL, Platelet Morphology Normal, Sodium Level 133L, Potassium Level 3.6, Chloride Level 101, Carbon Dioxide Level 28, Anion Gap 4L, Blood Urea Nitrogen 20H, Creatinine 0.5L, Estimat Glomerular Filtration Rate , Glucose Level 107H, Calcium Level 8.0L, Phosphorus Level 2.1L, Magnesium Level 2.1, Total Bilirubin 0.7, Aspartate Amino Transf (AST/SGOT) 78H, Alanine Aminotransferase (ALT/SGPT) 63, Alkaline Phosphatase 84, C-Reactive Protein, Quantitative 5.9H, Pro-B-Type Natriuretic Peptide 2924H, Total Protein 6.0L, Albumin 2.3L, Globulin 3.7, Albumin/Globulin Ratio 0.6L Current Medications Medications (Trade) Dose Ordered Sig/Jovanna Route PRN Reason Start Time Stop Time Status Last Admin Dose Admin Acetaminophen (Tylenol) 650 mg Q4H PRN GT Mild Pain/Temp > 100.5 07/20/18 18:15 08/19/18 18:14 Heparin Sodium (Porcine) (Heparin 5000 units/ml) 5,000 units EVERY 12 HOURS SUBQ 07/20/18 21:00 08/19/18 20:59 07/20/18 21:18 Levothyroxine Sodium (Synthroid) 25 mcg DAILY@0630 GT 07/22/18 06:30 08/21/18 06:29 07/22/18 06:05 Metoclopramide HCl (Reglan) 10 mg Q6H PRN IVP Nausea & Vomiting 07/20/18 18:15 08/19/18 18:14 Pantoprazole (Protonix) 40 mg EVERY 12 HOURS IVP 07/20/18 21:00 08/19/18 20:59 07/22/18 08:48 Piperacillin Sod/ Tazobactam Sod 3.375 gm/Dextrose 110 ml @ 27.5 mls/hr EVERY 8 HOURS IVPB 07/20/18 22:00 07/25/18 21:59 07/22/18 06:06 Potassium Phosphate 20 mm/ Sodium Chloride 281.6667 ml @ 46.944 m... ONCE IV 07/22/18 10:00 07/22/18 16:00 07/22/18 10:23 Tramadol HCl (Ultram) 25 mg Q8H GT 07/20/18 18:30 07/27/18 18:29 07/22/18 10:23 Vancomycin HCl (Vanco rx to dose) 1 ea DAILY PRN MISC Per rx protocol 07/20/18 18:45 08/19/18 18:44 Vancomycin/Sodium Chloride 250 ml @ 166.667 mls/hr Q24H IVPB 07/21/18 17:00 07/26/18 16:59 07/21/18 17:09 Ezio Gallegos MD Jul 22, 2018 12:54
--- NOTE | 2018-07-22 15:02 | General Progress Note ---
Assessment/Plan Problem List: (1) Aspiration pneumonia ICD Codes: J69.0 - Pneumonitis due to inhalation of food and vomit SNOMED: 350363532 (2) Hyponatremia ICD Codes: E87.1 - Hypo-osmolality and hyponatremia SNOMED: 86213403 (3) Hypoalbuminemia ICD Codes: E88.09 - Other disorders of plasma-protein metabolism, not elsewhere classified SNOMED: 603833348 (4) Anemia ICD Codes: D64.9 - Anemia, unspecified SNOMED: 823761843 Status: stable Assessment/Plan replace mag phos K as needed Antibiotics pulm toilet monitor labs lytes per ID and pulm advise Subjective ROS Limited/Unobtainable: No Constitutional: Reports: other - non verbal Allergies: Coded Allergies: NO KNOWN DRUG ALLERGIES (Unverified Allergy, Unknown, 09/20/15) Objective Last 24 Hour Vital Signs Date Time Temp Pulse Resp B/P (MAP) Pulse Ox O2 Delivery O2 Flow Rate FiO2 07/22/18 12:00 97.9 50 17 126/83 (97) 98 07/22/18 11:46 71 07/22/18 09:00 Nasal Cannula 3.0 07/22/18 08:00 97.5 81 18 103/52 (69) 97 07/22/18 07:38 71 07/22/18 04:00 98.6 72 20 98/41 (60) 100 07/22/18 04:00 69 07/22/18 03:31 98.1 07/22/18 00:00 98.1 71 20 107/46 (66) 99 07/21/18 21:00 Nasal Cannula 3.0 07/21/18 20:00 98.0 82 18 104/46 (65) 96 07/21/18 20:00 76 07/21/18 16:00 98.1 80 19 108/53 (71) 94 07/21/18 15:48 80 Intake and Output 07/21/18 07/22/18 18:59 06:59 Intake Total 730 ml 40 ml Output Total 800 ml 400 ml Balance -70 ml -360 ml Intake Oral 300 ml Free Water 100 ml Tube Feeding 330 ml 40 ml Output Urine Total 800 ml 400 ml # Bowel Movements 1 Laboratory Tests 07/22/18 07:04: White Blood Count 8.9, Red Blood Count 2.78L, Hemoglobin 9.1L, Hematocrit 25.8L , Mean Corpuscular Volume 93, Mean Corpuscular Hemoglobin 32.8H, Mean Corpuscular Hemoglobin Concent 35.3, Red Cell Distribution Width 10.2L, Platelet Count 132L, Mean Platelet Volume 7.9, Neutrophils (%) (Auto) , Lymphocytes (%) (Auto) , Monocytes (%) (Auto) , Eosinophils (%) (Auto) , Basophils (%) (Auto) , Differential Total Cells Counted 100, Neutrophils % ( Manual) 78H, Lymphocytes % (Manual) 11L, Monocytes % (Manual) 10, Eosinophils % (Manual) 0, Basophils % (Manual) 0, Band Neutrophils 1, Platelet Estimate DecreasedL, Platelet Morphology Normal, Sodium Level 133L, Potassium Level 3.6, Chloride Level 101, Carbon Dioxide Level 28, Anion Gap 4L, Blood Urea Nitrogen 20H, Creatinine 0.5L, Estimat Glomerular Filtration Rate , Glucose Level 107H, Calcium Level 8.0L, Phosphorus Level 2.1L, Magnesium Level 2.1, Total Bilirubin 0.7, Aspartate Amino Transf (AST/SGOT) 78H, Alanine Aminotransferase (ALT/SGPT) 63, Alkaline Phosphatase 84, C-Reactive Protein, Quantitative 5.9H, Pro-B-Type Natriuretic Peptide 2924H, Total Protein 6.0L, Albumin 2.3L, Globulin 3.7, Albumin/Globulin Ratio 0.6L Height (Feet): 5 Height (Inches): 5.00 Weight (Pounds): 117 General Appearance: no apparent distress, lethargic Cardiovascular: normal rate Abdomen: soft, other - PEG Objective no other changes Da Davis MD Jul 22, 2018 15:02
[2018-07-22 16:00] VITALS: BP 109/61
--- NOTE | 2018-07-22 16:29 | Infectious Diseases Prog Note ---
Assessment/Plan Problems: (1) Aspiration pneumonia Assessment & Plan: due to gram negative rods , with left perihilar infiltrates , await sputum culture, continue zosyn empirically, and stop vancomycin , no evidence of MRSA on his nares swab. recommend aspiration precaution and keep HOB > 30 degree all the time (2) Sepsis Assessment & Plan: due to the above, continue wide spectrum antibiotics pending blood culture (3) Abdominal wall cellulitis Assessment & Plan: he will be already on wide spectrum antibiotics , continue local wound care . (4) Fever Assessment & Plan: due to the above , continue tylenol and wide spectrum antibiotics Subjective ROS Limited/Unobtainable: Yes Allergies: Coded Allergies: NO KNOWN DRUG ALLERGIES (Unverified Allergy, Unknown, 09/20/15) Subjective he was comfortable, lying in bed, contracted, open eyes spontaneously . afebrile , no SOB, no wheezing Objective Vital Signs Last 24 Hour Vital Signs Date Time Temp Pulse Resp B/P (MAP) Pulse Ox O2 Delivery O2 Flow Rate FiO2 07/22/18 12:00 97.9 50 17 126/83 (97) 98 07/22/18 11:46 71 07/22/18 09:00 Nasal Cannula 3.0 07/22/18 08:00 97.5 81 18 103/52 (69) 97 07/22/18 07:38 71 07/22/18 04:00 98.6 72 20 98/41 (60) 100 07/22/18 04:00 69 07/22/18 03:31 98.1 07/22/18 00:00 98.1 71 20 107/46 (66) 99 07/21/18 21:00 Nasal Cannula 3.0 07/21/18 20:00 98.0 82 18 104/46 (65) 96 07/21/18 20:00 76 Height (Feet): 5 Height (Inches): 5.00 Weight (Pounds): 117 General Appearance: no acute distress, cachetic HEENT: normocephalic, atraumatic, anicteric, mucous membranes moist, PERRL, pharynx normal, supple, no JVD Respiratory/Chest: chest wall non-tender, no respiratory distress, no accessory muscle use, decreased breath sounds, crackles/rales Cardiovascular: normal peripheral pulses, normal rate, regular rhythm, no gallop/murmur, no JVD Abdomen: normal bowel sounds, soft, non tender, no organomegaly, non distended , no mass, other - red with abrasions Genitourinary: normal external genitalia Extremities: no cyanosis, no clubbing Neurologic/Psychiatric: alert, unresponsiveness Lymphatic: no neck adenopathy, no groin adenopathy Musculoskeletal: normal muscle bulk, no effusion Microbiology Date/Time Source Procedure Growth Status 07/20/18 13:45 Blood Blood Culture - Preliminary NO GROWTH AFTER 24 HOURS Resulted 07/20/18 13:30 Blood Blood Culture - Preliminary NO GROWTH AFTER 24 HOURS Resulted 07/21/18 08:45 Sputum Expectorated Gram Stain - Final Resulted 07/21/18 08:45 Sputum Culture - Preliminary Gram Negative Bacillus 1 Resulted 07/20/18 13:45 Nasal Nares MRSA Culture - Final NO METHICILLIN RESISTANT STAPH AUREUS... Complete 07/20/18 13:45 Nasal Nares Influenza Types A,B Antigen (MAULIK) - Final Complete 07/20/18 20:45 Indwelling Cath Urine Culture - Preliminary NO GROWTH Resulted 07/20/18 13:45 Rectum VRE Culture - Final NO VANCOMYCIN RESISTANT ENTEROCOCCUS ... Complete 07/20/18 13:45 Rectum - Final NO CARBAPENEM-RESISTANT ENTEROBACTERI... Complete Laboratory Tests Test 07/22/18 07:04 White Blood Count 8.9 K/UL (4.8-10.8) Red Blood Count 2.78 M/UL (4.70-6.10) L Hemoglobin 9.1 G/DL (14.2-18.0) L Hematocrit 25.8 % (42.0-52.0) L Mean Corpuscular Volume 93 FL (80-99) Mean Corpuscular Hemoglobin 32.8 PG (27.0-31.0) H Mean Corpuscular Hemoglobin Concent 35.3 G/DL (32.0-36.0) Red Cell Distribution Width 10.2 % (11.6-14.8) L Platelet Count 132 K/UL (150-450) L Mean Platelet Volume 7.9 FL (6.5-10.1) Neutrophils (%) (Auto) % (45.0-75.0) Lymphocytes (%) (Auto) % (20.0-45.0) Monocytes (%) (Auto) % (1.0-10.0) Eosinophils (%) (Auto) % (0.0-3.0) Basophils (%) (Auto) % (0.0-2.0) Differential Total Cells Counted 100 Neutrophils % (Manual) 78 % (45-75) H Lymphocytes % (Manual) 11 % (20-45) L Monocytes % (Manual) 10 % (1-10) Eosinophils % (Manual) 0 % (0-3) Basophils % (Manual) 0 % (0-2) Band Neutrophils 1 % (0-8) Platelet Estimate Decreased L Platelet Morphology Normal Sodium Level 133 MMOL/L (136-145) L Potassium Level 3.6 MMOL/L (3.5-5.1) Chloride Level 101 MMOL/L (98-107) Carbon Dioxide Level 28 MMOL/L (21-32) Anion Gap 4 mmol/L (5-15) L Blood Urea Nitrogen 20 mg/dL (7-18) H Creatinine 0.5 MG/DL (0.55-1.30) L Estimat Glomerular Filtration Rate mL/min (>60) Glucose Level 107 MG/DL (74-106) H Calcium Level 8.0 MG/DL (8.5-10.1) L Phosphorus Level 2.1 MG/DL (2.5-4.9) L Magnesium Level 2.1 MG/DL (1.8-2.4) Total Bilirubin 0.7 MG/DL (0.2-1.0) Aspartate Amino Transf (AST/SGOT) 78 U/L (15-37) H Alanine Aminotransferase (ALT/SGPT) 63 U/L (12-78) Alkaline Phosphatase 84 U/L (46-116) C-Reactive Protein, Quantitative 5.9 mg/dL (0.00-0.90) H Pro-B-Type Natriuretic Peptide 2924 pg/mL (0-125) H Total Protein 6.0 G/DL (6.4-8.2) L Albumin 2.3 G/DL (3.4-5.0) L Globulin 3.7 g/dL Albumin/Globulin Ratio 0.6 (1.0-2.7) L Current Medications Medications (Trade) Dose Ordered Sig/Jovanna Route PRN Reason Start Time Stop Time Status Last Admin Dose Admin Acetaminophen (Tylenol) 650 mg Q4H PRN GT Mild Pain/Temp > 100.5 07/20/18 18:15 08/19/18 18:14 Heparin Sodium (Porcine) (Heparin 5000 units/ml) 5,000 units EVERY 12 HOURS SUBQ 07/20/18 21:00 08/19/18 20:59 07/20/18 21:18 Iron Sucrose 100 mg/Sodium Chloride 60 ml @ 240 mls/hr BEDTIME IV 07/22/18 21:00 07/26/18 21:14 Levothyroxine Sodium (Synthroid) 25 mcg DAILY@0630 GT 07/22/18 06:30 08/21/18 06:29 07/22/18 06:05 Metoclopramide HCl (Reglan) 10 mg Q6H PRN IVP Nausea & Vomiting 07/20/18 18:15 08/19/18 18:14 Pantoprazole (Protonix) 40 mg EVERY 12 HOURS IVP 07/20/18 21:00 08/19/18 20:59 07/22/18 08:48 Piperacillin Sod/ Tazobactam Sod 3.375 gm/Dextrose 110 ml @ 27.5 mls/hr EVERY 8 HOURS IVPB 07/20/18 22:00 07/25/18 21:59 07/22/18 14:25 Tramadol HCl (Ultram) 25 mg Q8H GT 07/20/18 18:30 07/27/18 18:29 07/22/18 10:23 Vancomycin HCl (Vanco rx to dose) 1 ea DAILY PRN MISC Per rx protocol 07/20/18 18:45 08/19/18 18:44 Vancomycin/Sodium Chloride 250 ml @ 166.667 mls/hr Q24H IVPB 07/21/18 17:00 07/26/18 16:59 07/21/18 17:09 Spencer Carcamo M.D. Jul 22, 2018 16:29
[2018-07-22 20:42] VITALS: BP 116/57
[2018-07-22] MEDS ORDERED: Iron Sucrose 100 MG in NS 55 ML IV SCH (21:00)
[2018-07-22] MEDS: Iron Sucrose 100 MG in NS 55 ML IV SCH (21:00)
[2018-07-22] MEDS ORDERED: Metoclopramide 10mg/2ml Inj IVP PRN (21:30)
[2018-07-22] MEDS ORDERED: Acetaminophen 650mg/20.3ml GT PRN (21:30)
[2018-07-23] VITALS: BP 113/47
[2018-07-23] MEDS: traMADol 50mg tab GT SCH ×3 (02:57→18:33)
[2018-07-23 04:00] VITALS: BP 122/57
[2018-07-23] MEDS: Piperacillin/Tazobactam 3.375 GM in D5W 110 ML IVPB SCH (06:00)
[2018-07-23] MEDS: Levothyroxine 25mcg tab GT SCH (06:38)
[2018-07-23 08:00] VITALS: BP 127/61
[2018-07-23] MEDS: Pantoprazole Inj IVP SCH ×2 (09:11→20:15)
[2018-07-23] MEDS: Heparin 5000 units/ml inj SUBQ SCH ×2 (09:12→20:16)
[2018-07-23 09:26] LABS: BASOPHILS % (AUTO) 0.2 % (0.0-2.0); EOSINOPHILS % (AUTO) 1.5 % (0.0-3.0); HEMATOCRIT 26.4 % (42.0-52.0); HEMOGLOBIN 9.1 G/DL (14.2-18.0); LYMPHOCYTES % (AUTO) 13.8 % (20.0-45.0); MEAN CORPUSCULAR VOLUME 93 FL (80-99); MONOCYTES % (AUTO) 10.4 % (1.0-10.0); NEUTROPHILS % (AUTO) 74.1 % (45.0-75.0); PLATELET COUNT 159 K/UL (150-450); RED BLOOD COUNT 2.83 M/UL (4.70-6.10); RED CELL DISTRIBUTION WIDTH 10.6 % (11.6-14.8); WHITE BLOOD COUNT 7.2 K/UL (4.8-10.8)
[2018-07-23 09:43] LABS: ALANINE AMINOTRANSFERASE 74 U/L (12-78); ALBUMIN 2.2 G/DL (3.4-5.0); ALBUMIN/GLOBULIN RATIO 0.6 (1.0-2.7); ALKALINE PHOSPHATASE 119 U/L (46-116); ANION GAP 6 mmol/L (5-15); ASPARTATE AMINO TRANSFERASE 84 U/L (15-37); BILIRUBIN,TOTAL 0.7 MG/DL (0.2-1.0); BLOOD UREA NITROGEN 25 mg/dL (7-18); CARBON DIOXIDE 28 MMOL/L (21-32); CHLORIDE 101 MMOL/L (98-107); CREATININE 0.5 MG/DL (0.55-1.30); PHOSPHORUS 1.9 MG/DL (2.5-4.9); SODIUM 135 MMOL/L (136-145)
[2018-07-23] MEDS: Ertapenem 1 GM in NS 55 ML IVPB SCH (11:48)
[2018-07-23 12:00] VITALS: BP 142/78
[2018-07-23] MEDS ORDERED: Sodium Phosphate 30 MM in NS 275 ML IVPB ONE (12:30)
--- NOTE | 2018-07-23 12:51 | Pulmonology Progress Note ---
Assessment/Plan Problems: (1) Aspiration pneumonia (2) Sepsis (3) CAD (coronary artery disease) (4) Severe protein-calorie malnutrition (5) Anemia (6) S/P percutaneous endoscopic gastrostomy (PEG) tube placement (7) Dementia Assessment/Plan opens eyes, looks awake improving opening eyes check cultures f/u wbc tolerating feeding med/surg Subjective ROS Limited/Unobtainable: Yes Constitutional: Reports: no symptoms HEENT: Repors: no symptoms Respiratory: Reports: no symptoms Allergies: Coded Allergies: NO KNOWN DRUG ALLERGIES (Unverified Allergy, Unknown, 09/20/15) Objective Last 24 Hour Vital Signs Date Time Temp Pulse Resp B/P (MAP) Pulse Ox O2 Delivery O2 Flow Rate FiO2 07/23/18 12:00 97.0 60 19 142/78 (99) 97 07/23/18 09:00 Nasal Cannula 3.0 07/23/18 08:00 97.0 79 17 127/61 (83) 99 07/23/18 04:00 96.8 82 20 122/57 (78) 98 07/23/18 03:27 97.3 07/23/18 00:00 97.7 82 20 113/47 (69) 98 07/22/18 21:00 Nasal Cannula 3.0 07/22/18 20:42 97.3 80 20 116/57 (76) 96 07/22/18 16:00 98.0 69 20 109/61 (77) 98 Intake and Output 07/22/18 07/23/18 19:00 07:00 Intake Total 460 ml 777.5 ml Output Total 300 ml 300 ml Balance 160 ml 477.5 ml Free Water 100 ml 180 ml IV Total 197.5 ml Tube Feeding 360 ml 400 ml Output Urine Total 300 ml 300 ml General Appearance: cachetic HEENT: normocephalic, atraumatic Respiratory/Chest: chest wall non-tender, lungs clear Cardiovascular: normal peripheral pulses, normal rate Abdomen: normal bowel sounds, soft, non tender Genitourinary: normal external genitalia Microbiology Date/Time Source Procedure Growth Status 07/20/18 13:45 Blood Blood Culture - Preliminary NO GROWTH AFTER 48 HOURS Resulted 07/20/18 13:30 Blood Blood Culture - Preliminary NO GROWTH AFTER 48 HOURS Resulted 07/21/18 08:45 Sputum Expectorated Gram Stain - Final Complete 07/21/18 08:45 Sputum Culture - Final Escherichia Coli - Esbl Usual Respiratory Kayleigh Complete 07/20/18 13:45 Nasal Nares MRSA Culture - Final NO METHICILLIN RESISTANT STAPH AUREUS... Complete 07/20/18 13:45 Nasal Nares Influenza Types A,B Antigen (MAULIK) - Final Complete 07/20/18 20:45 Indwelling Cath Urine Culture - Preliminary NO GROWTH AFTER 24 HOURS Resulted 07/20/18 13:45 Rectum VRE Culture - Final NO VANCOMYCIN RESISTANT ENTEROCOCCUS ... Complete 07/20/18 13:45 Rectum - Final NO CARBAPENEM-RESISTANT ENTEROBACTERI... Complete Laboratory Tests 07/23/18 06:55: White Blood Count 7.2, Red Blood Count 2.83L, Hemoglobin 9.1L, Hematocrit 26.4L , Mean Corpuscular Volume 93, Mean Corpuscular Hemoglobin 32.3H, Mean Corpuscular Hemoglobin Concent 34.7, Red Cell Distribution Width 10.6L, Platelet Count 159, Mean Platelet Volume 7.6, Neutrophils (%) (Auto) 74.1, Lymphocytes (%) (Auto) 13.8L, Monocytes (%) (Auto) 10.4H, Eosinophils (%) (Auto ) 1.5, Basophils (%) (Auto) 0.2, Sodium Level 135L, Potassium Level 4.0, Chloride Level 101, Carbon Dioxide Level 28, Anion Gap 6, Blood Urea Nitrogen 25H, Creatinine 0.5L, Estimat Glomerular Filtration Rate , Glucose Level 118H, Calcium Level 8.0L, Phosphorus Level 1.9L, Magnesium Level 2.1, Total Bilirubin 0.7, Aspartate Amino Transf (AST/SGOT) 84H, Alanine Aminotransferase (ALT/SGPT) 74, Alkaline Phosphatase 119H, Total Protein 6.0L, Albumin 2.2L, Globulin 3.8, Albumin/Globulin Ratio 0.6L Current Medications Medications (Trade) Dose Ordered Sig/Jovanna Route PRN Reason Start Time Stop Time Status Last Admin Dose Admin Acetaminophen (Tylenol) 650 mg Q4H PRN GT Mild Pain/Temp > 100.5 07/22/18 21:30 08/19/18 21:29 Ertapenem 1 gm/ Sodium Chloride 55 ml @ 110 mls/hr Q24H IVPB 07/23/18 12:00 07/28/18 11:59 07/23/18 11:48 Heparin Sodium (Porcine) (Heparin 5000 units/ml) 5,000 units EVERY 12 HOURS SUBQ 07/22/18 21:00 08/19/18 20:59 07/23/18 09:12 Iron Sucrose 100 mg/Sodium Chloride 60 ml @ 240 mls/hr BEDTIME IV 07/22/18 21:00 07/26/18 21:14 07/22/18 21:00 Levothyroxine Sodium (Synthroid) 25 mcg DAILY@0630 GT 07/23/18 06:30 08/21/18 06:29 07/23/18 06:38 Metoclopramide HCl (Reglan) 10 mg Q6H PRN IVP Nausea & Vomiting 07/22/18 21:30 08/21/18 21:29 Pantoprazole (Protonix) 40 mg EVERY 12 HOURS IVP 07/22/18 21:00 08/19/18 20:59 07/23/18 09:11 Sodium Phosphate 30 mm/Sodium Chloride 285 ml @ 47.5 mls/hr ONCE ONCE IVPB 07/23/18 12:30 07/23/18 18:29 Tramadol HCl (Ultram) 25 mg Q8H GT 07/23/18 02:30 07/27/18 18:29 07/23/18 09:38 Ezio Gallegos MD Jul 23, 2018 12:51
--- NOTE | 2018-07-23 14:54 | General Progress Note ---
Assessment/Plan Problem List: (1) Aspiration pneumonia ICD Codes: J69.0 - Pneumonitis due to inhalation of food and vomit SNOMED: 235591299 (2) Hyponatremia ICD Codes: E87.1 - Hypo-osmolality and hyponatremia SNOMED: 47624057 (3) Hypoalbuminemia ICD Codes: E88.09 - Other disorders of plasma-protein metabolism, not elsewhere classified SNOMED: 071873650 (4) Anemia ICD Codes: D64.9 - Anemia, unspecified SNOMED: 310094140 Status: stable Assessment/Plan replace mag phos K as needed Antibiotics IVANZ pulm toilet monitor labs lytes per ID and pulm advise ? DC on bactrim in am? Subjective ROS Limited/Unobtainable: No Allergies: Coded Allergies: NO KNOWN DRUG ALLERGIES (Unverified Allergy, Unknown, 09/20/15) Objective Last 24 Hour Vital Signs Date Time Temp Pulse Resp B/P (MAP) Pulse Ox O2 Delivery O2 Flow Rate FiO2 07/23/18 12:00 97.0 60 19 142/78 (99) 97 07/23/18 09:00 Nasal Cannula 3.0 07/23/18 08:00 97.0 79 17 127/61 (83) 99 07/23/18 04:00 96.8 82 20 122/57 (78) 98 07/23/18 03:27 97.3 07/23/18 00:00 97.7 82 20 113/47 (69) 98 07/22/18 21:00 Nasal Cannula 3.0 07/22/18 20:42 97.3 80 20 116/57 (76) 96 07/22/18 16:00 98.0 69 20 109/61 (77) 98 Intake and Output 07/22/18 07/23/18 18:59 06:59 Intake Total 460 ml 750.0 ml Output Total 300 ml 300 ml Balance 160 ml 450.0 ml Free Water 100 ml 180 ml IV Total 170.0 ml Tube Feeding 360 ml 400 ml Output Urine Total 300 ml 300 ml Laboratory Tests 07/23/18 06:55: White Blood Count 7.2, Red Blood Count 2.83L, Hemoglobin 9.1L, Hematocrit 26.4L , Mean Corpuscular Volume 93, Mean Corpuscular Hemoglobin 32.3H, Mean Corpuscular Hemoglobin Concent 34.7, Red Cell Distribution Width 10.6L, Platelet Count 159, Mean Platelet Volume 7.6, Neutrophils (%) (Auto) 74.1, Lymphocytes (%) (Auto) 13.8L, Monocytes (%) (Auto) 10.4H, Eosinophils (%) (Auto ) 1.5, Basophils (%) (Auto) 0.2, Sodium Level 135L, Potassium Level 4.0, Chloride Level 101, Carbon Dioxide Level 28, Anion Gap 6, Blood Urea Nitrogen 25H, Creatinine 0.5L, Estimat Glomerular Filtration Rate , Glucose Level 118H, Calcium Level 8.0L, Phosphorus Level 1.9L, Magnesium Level 2.1, Total Bilirubin 0.7, Aspartate Amino Transf (AST/SGOT) 84H, Alanine Aminotransferase (ALT/SGPT) 74, Alkaline Phosphatase 119H, Total Protein 6.0L, Albumin 2.2L, Globulin 3.8, Albumin/Globulin Ratio 0.6L Height (Feet): 5 Height (Inches): 5.00 Weight (Pounds): 117 General Appearance: no apparent distress Objective no other changes Da Davis MD Jul 23, 2018 14:54
--- NOTE | 2018-07-23 15:40 | Infectious Diseases Prog Note ---
Assessment/Plan Problems: (1) Aspiration pneumonia Assessment & Plan: due to ESBL producing E.coli , with left perihilar infiltrates , will switch zosyn empirically to ertapenem and treat for two weeks. EOT 08/06/18 recommend aspiration precaution and keep HOB > 30 degree all the time (2) Sepsis Assessment & Plan: due to the above, blood culture is negative . (3) Abdominal wall cellulitis Assessment & Plan: improving, already on wide spectrum antibiotics , continue local wound care . (4) Fever Assessment & Plan: due to the above , improving, continue tylenol and wide spectrum antibiotics Subjective ROS Limited/Unobtainable: Yes Allergies: Coded Allergies: NO KNOWN DRUG ALLERGIES (Unverified Allergy, Unknown, 09/20/15) Subjective he was comfortable, lying in bed, contracted, open eyes spontaneously . afebrile , no SOB, no wheezing Objective Vital Signs Last 24 Hour Vital Signs Date Time Temp Pulse Resp B/P (MAP) Pulse Ox O2 Delivery O2 Flow Rate FiO2 07/23/18 12:00 97.0 60 19 142/78 (99) 97 07/23/18 09:00 Nasal Cannula 3.0 07/23/18 08:00 97.0 79 17 127/61 (83) 99 07/23/18 04:00 96.8 82 20 122/57 (78) 98 07/23/18 03:27 97.3 07/23/18 00:00 97.7 82 20 113/47 (69) 98 07/22/18 21:00 Nasal Cannula 3.0 07/22/18 20:42 97.3 80 20 116/57 (76) 96 07/22/18 16:00 98.0 69 20 109/61 (77) 98 Height (Feet): 5 Height (Inches): 5.00 Weight (Pounds): 117 General Appearance: WD/WN, cachetic HEENT: normocephalic, atraumatic, anicteric, mucous membranes moist, PERRL Respiratory/Chest: chest wall non-tender, lungs clear, normal breath sounds, no respiratory distress, no accessory muscle use Cardiovascular: normal peripheral pulses, normal rate, regular rhythm, no gallop/murmur, no JVD Abdomen: normal bowel sounds, soft, non tender, no organomegaly, non distended , no mass, no scars Genitourinary: normal external genitalia Extremities: no cyanosis, no clubbing Skin: no rash, no lesions, ulcers Neurologic/Psychiatric: alert, unresponsiveness Lymphatic: no neck adenopathy, no groin adenopathy Musculoskeletal: normal muscle bulk, no effusion Microbiology Date/Time Source Procedure Growth Status 07/21/18 08:45 Sputum Expectorated Gram Stain - Final Complete 07/21/18 08:45 Sputum Culture - Final Escherichia Coli - Esbl Usual Respiratory Kayleigh Complete 07/20/18 20:45 Indwelling Cath Urine Culture - Preliminary NO GROWTH AFTER 24 HOURS Resulted Laboratory Tests Test 07/23/18 06:55 White Blood Count 7.2 K/UL (4.8-10.8) Red Blood Count 2.83 M/UL (4.70-6.10) L Hemoglobin 9.1 G/DL (14.2-18.0) L Hematocrit 26.4 % (42.0-52.0) L Mean Corpuscular Volume 93 FL (80-99) Mean Corpuscular Hemoglobin 32.3 PG (27.0-31.0) H Mean Corpuscular Hemoglobin Concent 34.7 G/DL (32.0-36.0) Red Cell Distribution Width 10.6 % (11.6-14.8) L Platelet Count 159 K/UL (150-450) Mean Platelet Volume 7.6 FL (6.5-10.1) Neutrophils (%) (Auto) 74.1 % (45.0-75.0) Lymphocytes (%) (Auto) 13.8 % (20.0-45.0) L Monocytes (%) (Auto) 10.4 % (1.0-10.0) H Eosinophils (%) (Auto) 1.5 % (0.0-3.0) Basophils (%) (Auto) 0.2 % (0.0-2.0) Sodium Level 135 MMOL/L (136-145) L Potassium Level 4.0 MMOL/L (3.5-5.1) Chloride Level 101 MMOL/L (98-107) Carbon Dioxide Level 28 MMOL/L (21-32) Anion Gap 6 mmol/L (5-15) Blood Urea Nitrogen 25 mg/dL (7-18) H Creatinine 0.5 MG/DL (0.55-1.30) L Estimat Glomerular Filtration Rate mL/min (>60) Glucose Level 118 MG/DL (74-106) H Calcium Level 8.0 MG/DL (8.5-10.1) L Phosphorus Level 1.9 MG/DL (2.5-4.9) L Magnesium Level 2.1 MG/DL (1.8-2.4) Total Bilirubin 0.7 MG/DL (0.2-1.0) Aspartate Amino Transf (AST/SGOT) 84 U/L (15-37) H Alanine Aminotransferase (ALT/SGPT) 74 U/L (12-78) Alkaline Phosphatase 119 U/L (46-116) H Total Protein 6.0 G/DL (6.4-8.2) L Albumin 2.2 G/DL (3.4-5.0) L Globulin 3.8 g/dL Albumin/Globulin Ratio 0.6 (1.0-2.7) L Current Medications Medications (Trade) Dose Ordered Sig/Jovanna Route PRN Reason Start Time Stop Time Status Last Admin Dose Admin Acetaminophen (Tylenol) 650 mg Q4H PRN GT Mild Pain/Temp > 100.5 07/22/18 21:30 08/19/18 21:29 Ertapenem 1 gm/ Sodium Chloride 55 ml @ 110 mls/hr Q24H IVPB 07/23/18 12:00 07/28/18 11:59 07/23/18 11:48 Heparin Sodium (Porcine) (Heparin 5000 units/ml) 5,000 units EVERY 12 HOURS SUBQ 07/22/18 21:00 08/19/18 20:59 07/23/18 09:12 Iron Sucrose 100 mg/Sodium Chloride 60 ml @ 240 mls/hr BEDTIME IV 07/22/18 21:00 07/26/18 21:14 07/22/18 21:00 Levothyroxine Sodium (Synthroid) 25 mcg DAILY@0630 GT 07/23/18 06:30 08/21/18 06:29 07/23/18 06:38 Metoclopramide HCl (Reglan) 10 mg Q6H PRN IVP Nausea & Vomiting 07/22/18 21:30 08/21/18 21:29 Pantoprazole (Protonix) 40 mg EVERY 12 HOURS IVP 07/22/18 21:00 08/19/18 20:59 07/23/18 09:11 Sodium Phosphate 30 mm/Sodium Chloride 285 ml @ 47.5 mls/hr ONCE ONCE IVPB 07/23/18 12:30 07/23/18 18:29 07/23/18 13:38 Tramadol HCl (Ultram) 25 mg Q8H GT 07/23/18 02:30 07/27/18 18:29 07/23/18 09:38 Spencer Carcamo M.D. Jul 23, 2018 15:40
[2018-07-23 16:00] VITALS: BP 120/68
--- NOTE | 2018-07-23 17:23 | Consultation ---
History of Present Illness General Date patient seen: Jul 23, 2018 Chief Complaint: Fever Present Illness HPI 83 year old male with multiple medical comorbidities who is a [facility] resident presented for fever and cough for evaluation. Upon admission noted to have multiple wounds which will require care and management. Surgery called to evaluate. patient seen, chart reviewed, patient examined. resting comfortable in hospital bed Allergies: Coded Allergies: NO KNOWN DRUG ALLERGIES (Unverified Allergy, Unknown, 09/20/15) Medication History Scheduled Ranitidine Hcl* (Zantac*), 150 MG ORAL TWICE A DAY Scheduled PRN Acetaminophen 160MG/5ML* (Acetaminophen*), 20 ML ORAL Q6HR PRN for For Pain, ( Reported) Morphine Sulfate (Morphine Sulfate), 5 MG SL Q2HR PRN for Severe Pain (Pain Scale 7-10), (Reported) Morphine Sulfate (Morphine Sulfate), 5 MG SL Q2HR PRN for Shortness of Breath, ( Reported) Discontinued Medications Amoxicillin/Potassium Clav 500-125 Tablet* (Augmentin 500-125 Tablet*), 1 TAB ORAL THREE TIMES A DAY Discontinued Reason: Therapy completed Bacitracin (Bacitracin*), 1 PACKET TOPIC, (Reported) Discontinued Reason: Therapy completed Patient History Limited by: medical condition History Provided By: Medical Record, PMD Healthcare decision maker N Resuscitation status Do Not Resuscitate Advanced Directive on File Yes Past Medical/Surgical History Past Medical/Surgical History: (1) Severe protein-calorie malnutrition (2) Abdominal wall cellulitis (3) Fever (4) Pneumonia (5) Elevated liver enzymes (6) Gastrointestinal hemorrhage (7) UTI (urinary tract infection) (8) CAD (coronary artery disease) (9) Dementia (10) HTN (hypertension) (11) Hematuria (12) Malfunction of gastrostomy tube (13) Sepsis (14) Aspiration pneumonia (15) Anemia (16) Hyponatremia (17) Hypoalbuminemia Review of Systems ROS Narrative cannot obtain given medical condition Physical Exam General Appearance: no apparent distress Lines, tubes and drains: other HEENT: atraumatic, mucous membranes moist Neck: normal inspection Respiratory/Chest: lungs clear, normal breath sounds, no respiratory distress Cardiovascular/Chest: normal rate Abdomen: normal bowel sounds, non tender, soft, no organomegaly Extremities: other Skin Exam: warm/dry, other Neurologic: unresponsiveness Last 24 Hour Vital Signs Date Time Temp Pulse Resp B/P (MAP) Pulse Ox O2 Delivery O2 Flow Rate FiO2 07/23/18 16:00 98.4 84 20 120/68 (85) 97 07/23/18 12:00 97.0 60 19 142/78 (99) 97 07/23/18 09:00 Nasal Cannula 3.0 07/23/18 08:00 97.0 79 17 127/61 (83) 99 07/23/18 04:00 96.8 82 20 122/57 (78) 98 07/23/18 03:27 97.3 07/23/18 00:00 97.7 82 20 113/47 (69) 98 07/22/18 21:00 Nasal Cannula 3.0 07/22/18 20:42 97.3 80 20 116/57 (76) 96 Intake and Output 07/22/18 07/23/18 18:59 06:59 Intake Total 460 ml 750.0 ml Output Total 300 ml 300 ml Balance 160 ml 450.0 ml Free Water 100 ml 180 ml IV Total 170.0 ml Tube Feeding 360 ml 400 ml Output Urine Total 300 ml 300 ml Laboratory Tests Test 07/23/18 06:55 White Blood Count 7.2 K/UL (4.8-10.8) Red Blood Count 2.83 M/UL (4.70-6.10) L Hemoglobin 9.1 G/DL (14.2-18.0) L Hematocrit 26.4 % (42.0-52.0) L Mean Corpuscular Volume 93 FL (80-99) Mean Corpuscular Hemoglobin 32.3 PG (27.0-31.0) H Mean Corpuscular Hemoglobin Concent 34.7 G/DL (32.0-36.0) Red Cell Distribution Width 10.6 % (11.6-14.8) L Platelet Count 159 K/UL (150-450) Mean Platelet Volume 7.6 FL (6.5-10.1) Neutrophils (%) (Auto) 74.1 % (45.0-75.0) Lymphocytes (%) (Auto) 13.8 % (20.0-45.0) L Monocytes (%) (Auto) 10.4 % (1.0-10.0) H Eosinophils (%) (Auto) 1.5 % (0.0-3.0) Basophils (%) (Auto) 0.2 % (0.0-2.0) Sodium Level 135 MMOL/L (136-145) L Potassium Level 4.0 MMOL/L (3.5-5.1) Chloride Level 101 MMOL/L (98-107) Carbon Dioxide Level 28 MMOL/L (21-32) Anion Gap 6 mmol/L (5-15) Blood Urea Nitrogen 25 mg/dL (7-18) H Creatinine 0.5 MG/DL (0.55-1.30) L Estimat Glomerular Filtration Rate mL/min (>60) Glucose Level 118 MG/DL (74-106) H Calcium Level 8.0 MG/DL (8.5-10.1) L Phosphorus Level 1.9 MG/DL (2.5-4.9) L Magnesium Level 2.1 MG/DL (1.8-2.4) Total Bilirubin 0.7 MG/DL (0.2-1.0) Aspartate Amino Transf (AST/SGOT) 84 U/L (15-37) H Alanine Aminotransferase (ALT/SGPT) 74 U/L (12-78) Alkaline Phosphatase 119 U/L (46-116) H Total Protein 6.0 G/DL (6.4-8.2) L Albumin 2.2 G/DL (3.4-5.0) L Globulin 3.8 g/dL Albumin/Globulin Ratio 0.6 (1.0-2.7) L Height (Feet): 5 Height (Inches): 5.00 Weight (Pounds): 117 Medications Current Medications Medications (Trade) Dose Ordered Sig/Jovanna Route PRN Reason Start Time Stop Time Status Last Admin Dose Admin Acetaminophen (Tylenol) 650 mg Q4H PRN GT Mild Pain/Temp > 100.5 07/22/18 21:30 08/19/18 21:29 Ertapenem 1 gm/ Sodium Chloride 55 ml @ 110 mls/hr Q24H IVPB 07/23/18 12:00 07/28/18 11:59 07/23/18 11:48 Heparin Sodium (Porcine) (Heparin 5000 units/ml) 5,000 units EVERY 12 HOURS SUBQ 07/22/18 21:00 08/19/18 20:59 07/23/18 09:12 Iron Sucrose 100 mg/Sodium Chloride 60 ml @ 240 mls/hr BEDTIME IV 07/22/18 21:00 07/26/18 21:14 07/22/18 21:00 Levothyroxine Sodium (Synthroid) 25 mcg DAILY@0630 GT 07/23/18 06:30 08/21/18 06:29 07/23/18 06:38 Metoclopramide HCl (Reglan) 10 mg Q6H PRN IVP Nausea & Vomiting 07/22/18 21:30 08/21/18 21:29 Pantoprazole (Protonix) 40 mg EVERY 12 HOURS IVP 07/22/18 21:00 08/19/18 20:59 07/23/18 09:11 Sodium Phosphate 30 mm/Sodium Chloride 285 ml @ 47.5 mls/hr ONCE ONCE IVPB 07/23/18 12:30 07/23/18 18:29 07/23/18 13:38 Tramadol HCl (Ultram) 25 mg Q8H GT 07/23/18 02:30 07/27/18 18:29 07/23/18 09:38 Assessment/Plan Problem List: (1) Severe protein-calorie malnutrition Assessment & Plan: Will need nutritional optimization for proper wound healing will check labs nutrition consult increase intake thank you ICD Codes: E43 - Unspecified severe protein-calorie malnutrition SNOMED: 222459267 (2) Decubitus ulcer Assessment & Plan: Patient present with multiple pressure injuries. Maroon discoloration noted to L shoulder (L)3cm x (W)5.5cm Full thickness pressure injury to thoracic spine with 100% slough and red borders(L)0.5cm x (W)0.7cm .Non-blanching erythema periwound. Full thickness pressure injury to sacrum with 50% slough (L)2cm x (W) 1.5cm.Marginal erythema at borders .Non-blanching erythema periwound. Scrotum red but is intact. Resolving pressure injury noted to medial L tibia. Resolving pressure injury noted to dorsum R foot , pink and dry. R 1st metatarsal head,lateral and plantar aspect fluctuant and maroon in color. R hallux maroon and fluctuant. Both heels are boggy but blanchable. All wounds present upon admission and will be cared for during hospital stay Tx.Plan: Cleanse wounds sacrum and Thoracic area with Saline.Apply Therahoney gel. Cover with Optifoam drsg Daily and and prn. Apply Cavilon to L shoulder.Cover with Optifoam drsg .Change Daily and prn. Apply Cavilon wipes to R 1st metatarsal and R hallux.Cover with Optifoam drsg .Change every 7 days and prn. Cavilon to both heels .Cover with Optifoam drsg .Change every 7days and prn Reposition at minimum every 2hours or as tolerated. Surface Support mattress. ICD Codes: L89.90 - Pressure ulcer of unspecified site, unspecified stage SNOMED: 632524130 Cecil Young Jul 23, 2018 17:23
[2018-07-23 20:00] VITALS: BP 109/76
[2018-07-23] MEDS: Iron Sucrose 100 MG in NS 55 ML IV SCH (20:15)
[2018-07-23] MEDS ORDERED: D5NS 1000ml IV ONE (22:37)
[2018-07-23] MEDS ORDERED: NS 275ml ONE (22:37)
[2018-07-24 00:20] VITALS: BP 111/71
[2018-07-24] MEDS: traMADol 50mg tab GT SCH ×2 (02:38→09:48)
[2018-07-24 04:00] VITALS: BP_SYST 115; BP_SYST 120; BP_DIAS 71; BP_DIAS 74
[2018-07-24] MEDS: Levothyroxine 25mcg tab GT SCH (06:06)
[2018-07-24 06:48] LABS: BASOPHILS % (AUTO) 0.8 % (0.0-2.0); EOSINOPHILS % (AUTO) 3.6 % (0.0-3.0); HEMATOCRIT 26.2 % (42.0-52.0); HEMOGLOBIN 9.1 G/DL (14.2-18.0); LYMPHOCYTES % (AUTO) 21.7 % (20.0-45.0); MEAN CORPUSCULAR VOLUME 93 FL (80-99); MONOCYTES % (AUTO) 14.5 % (1.0-10.0); NEUTROPHILS % (AUTO) 59.4 % (45.0-75.0); PLATELET COUNT 154 K/UL (150-450); RED BLOOD COUNT 2.81 M/UL (4.70-6.10); RED CELL DISTRIBUTION WIDTH 10.3 % (11.6-14.8); WHITE BLOOD COUNT 6.7 K/UL (4.8-10.8)
[2018-07-24 07:11] LABS: ALANINE AMINOTRANSFERASE 63 U/L (12-78); ALBUMIN 2.1 G/DL (3.4-5.0); ALBUMIN/GLOBULIN RATIO 0.6 (1.0-2.7); ALKALINE PHOSPHATASE 117 U/L (46-116); ANION GAP 4 mmol/L (5-15); ASPARTATE AMINO TRANSFERASE 67 U/L (15-37); BILIRUBIN,TOTAL 0.6 MG/DL (0.2-1.0); BLOOD UREA NITROGEN 25 mg/dL (7-18); CALCIUM 7.8 MG/DL (8.5-10.1); CARBON DIOXIDE 30 MMOL/L (21-32); CHLORIDE 103 MMOL/L (98-107); CREATININE 0.4 MG/DL (0.55-1.30); SODIUM 136 MMOL/L (136-145)
[2018-07-24 08:00] VITALS: BP 127/67
--- NOTE | 2018-07-24 08:06 | Pulmonology Progress Note ---
Assessment/Plan Assessment/Plan ASSESSMENT Sepsis Aspiration pneumonia with E coli ESBL Severe protein calorie malnutrition Anemia Dysphagia, PEG tube Dementia Abdominal wall cellulitis Elevated LFT Hepatitis C Anemia Hyponatremia- resolved PLAN OF CARE MS floor titrate O2 to keep pulse ox above 92% pulmonary toilet abx as per ID recs sputum cx + E coli ESBL blood and urine cx negative, influenza screen negative f/up with CXR DVT/GI prophylaxis strict aspiration precaution G-tube feeding, monitor tolerance local wound care for abdominal wall cellulitis elevated TSH, started on low-dose levothyroxine status post IV fluids monitor renal parameters , lytes and correct lytes prn Na up to normal monitor H&H with goal to keep Hgb above 7 ; anemia w/up noted s/p post Venofer 1 LFT trending down hepatitis panel +hepatitis C bowel regimen supportive care DNR/DNI status Recommend end of life care/palliative care case discussed and evaluated by supervising physician Subjective Allergies: Coded Allergies: NO KNOWN DRUG ALLERGIES (Unverified Allergy, Unknown, 09/20/15) Objective Last 24 Hour Vital Signs Date Time Temp Pulse Resp B/P (MAP) Pulse Ox O2 Delivery O2 Flow Rate FiO2 07/24/18 04:00 98.0 81 18 115/71 (86) 100 07/24/18 03:08 97.9 07/24/18 00:20 97.9 81 18 111/71 (84) 100 07/23/18 21:00 Nasal Cannula 3.0 07/23/18 20:00 97.8 78 18 109/76 (87) 100 07/23/18 16:00 98.4 84 20 120/68 (85) 97 07/23/18 12:00 97.0 60 19 142/78 (99) 97 07/23/18 09:00 Nasal Cannula 3.0 Intake and Output 07/23/18 07/24/18 19:00 07:00 Intake Total 980.0 ml 310 ml Output Total 200 ml 200 ml Balance 780.0 ml 110 ml Free Water 220 ml 50 ml IV Total 280.0 ml 60 ml Tube Feeding 480 ml 200 ml Output Urine Total 200 ml 200 ml Microbiology Date/Time Source Procedure Growth Status 07/21/18 08:45 Sputum Expectorated Gram Stain - Final Complete 07/21/18 08:45 Sputum Culture - Final Escherichia Coli - Esbl Usual Respiratory Kayleigh Complete Laboratory Tests 07/24/18 05:20: White Blood Count 6.7, Red Blood Count 2.81L, Hemoglobin 9.1L, Hematocrit 26.2L , Mean Corpuscular Volume 93, Mean Corpuscular Hemoglobin 32.3H, Mean Corpuscular Hemoglobin Concent 34.6, Red Cell Distribution Width 10.3L, Platelet Count 154, Mean Platelet Volume 6.8, Neutrophils (%) (Auto) 59.4, Lymphocytes (%) (Auto) 21.7, Monocytes (%) (Auto) 14.5H, Eosinophils (%) (Auto) 3.6H, Basophils (%) (Auto) 0.8, Sodium Level 136, Potassium Level 4.0, Chloride Level 103, Carbon Dioxide Level 30, Anion Gap 4L, Blood Urea Nitrogen 25H, Creatinine 0.4L, Estimat Glomerular Filtration Rate , Glucose Level 125H, Calcium Level 7.8L, Total Bilirubin 0.6, Aspartate Amino Transf (AST/SGOT) 67H, Alanine Aminotransferase (ALT/SGPT) 63, Alkaline Phosphatase 117H, Total Protein 5.7L, Albumin 2.1L, Globulin 3.6, Albumin/Globulin Ratio 0.6L, Prealbumin [Pending] Current Medications Medications (Trade) Dose Ordered Sig/Jovanna Route PRN Reason Start Time Stop Time Status Last Admin Dose Admin Acetaminophen (Tylenol) 650 mg Q4H PRN GT Mild Pain/Temp > 100.5 07/22/18 21:30 08/19/18 21:29 Ertapenem 1 gm/ Sodium Chloride 55 ml @ 110 mls/hr Q24H IVPB 07/23/18 12:00 07/28/18 11:59 07/23/18 11:48 Heparin Sodium (Porcine) (Heparin 5000 units/ml) 5,000 units EVERY 12 HOURS SUBQ 07/22/18 21:00 08/19/18 20:59 07/23/18 20:16 Iron Sucrose 100 mg/Sodium Chloride 60 ml @ 240 mls/hr BEDTIME IV 07/22/18 21:00 07/26/18 21:14 07/23/18 20:15 Levothyroxine Sodium (Synthroid) 25 mcg DAILY@0630 GT 07/23/18 06:30 08/21/18 06:29 07/24/18 06:06 Metoclopramide HCl (Reglan) 10 mg Q6H PRN IVP Nausea & Vomiting 07/22/18 21:30 08/21/18 21:29 Pantoprazole (Protonix) 40 mg EVERY 12 HOURS IVP 07/22/18 21:00 08/19/18 20:59 07/23/18 20:15 Tramadol HCl (Ultram) 25 mg Q8H GT 07/23/18 02:30 07/27/18 18:29 07/24/18 02:38 Amy Stringer NP Jul 24, 2018 08:06
[2018-07-24] MEDS: Pantoprazole Inj IVP SCH (09:48)
[2018-07-24] MEDS: Heparin 5000 units/ml inj SUBQ SCH (09:49)
[2018-07-24] MEDS: Ertapenem 1 GM in NS 55 ML IVPB SCH (11:14)
[2018-07-24 12:03] VITALS: BP 134/65
--- NOTE | 2018-07-24 12:56 | General Progress Note ---
Assessment/Plan Problem List: (1) Aspiration pneumonia ICD Codes: J69.0 - Pneumonitis due to inhalation of food and vomit SNOMED: 246089271 (2) Hyponatremia ICD Codes: E87.1 - Hypo-osmolality and hyponatremia SNOMED: 26342020 (3) Hypoalbuminemia ICD Codes: E88.09 - Other disorders of plasma-protein metabolism, not elsewhere classified SNOMED: 168134971 (4) Anemia ICD Codes: D64.9 - Anemia, unspecified SNOMED: 409210186 Status: stable Assessment/Plan DC to ECF on bactrim replaced mag phos K as needed Antibiotics current IVANZ pulm toilet monitor labs lytes per ID and pulm advise Subjective ROS Limited/Unobtainable: No Constitutional: Reports: malaise Allergies: Coded Allergies: NO KNOWN DRUG ALLERGIES (Unverified Allergy, Unknown, 09/20/15) Objective Last 24 Hour Vital Signs Date Time Temp Pulse Resp B/P (MAP) Pulse Ox O2 Delivery O2 Flow Rate FiO2 07/24/18 12:03 97.2 77 18 134/65 (88) 99 07/24/18 09:00 Nasal Cannula 3.0 07/24/18 08:00 97.5 80 16 127/67 (87) 100 07/24/18 04:00 98.0 81 18 115/71 (86) 100 07/24/18 03:08 97.9 07/24/18 00:20 97.9 81 18 111/71 (84) 100 07/23/18 21:00 Nasal Cannula 3.0 07/23/18 20:00 97.8 78 18 109/76 (87) 100 07/23/18 16:00 98.4 84 20 120/68 (85) 97 Current Medications Medications (Trade) Dose Ordered Sig/Jovanna Route PRN Reason Start Time Stop Time Status Last Admin Dose Admin Acetaminophen (Tylenol) 650 mg Q4H PRN GT Mild Pain/Temp > 100.5 07/22/18 21:30 08/19/18 21:29 Ertapenem 1 gm/ Sodium Chloride 55 ml @ 110 mls/hr Q24H IVPB 07/23/18 12:00 07/28/18 11:59 07/24/18 11:14 Heparin Sodium (Porcine) (Heparin 5000 units/ml) 5,000 units EVERY 12 HOURS SUBQ 11/29/18 21:00 08/19/18 20:59 07/24/18 09:49 Iron Sucrose 100 mg/Sodium Chloride 60 ml @ 240 mls/hr BEDTIME IV 07/22/18 21:00 07/26/18 21:14 07/23/18 20:15 Lansoprazole (Prevacid) 30 mg BID GT 07/24/18 18:00 08/23/18 17:59 Levothyroxine Sodium (Synthroid) 25 mcg DAILY@0630 GT 07/23/18 06:30 08/21/18 06:29 07/24/18 06:06 Metoclopramide HCl (Reglan) 10 mg Q6H PRN IVP Nausea & Vomiting 07/22/18 21:30 08/21/18 21:29 Tramadol HCl (Ultram) 25 mg Q8H GT 07/23/18 02:30 07/27/18 18:29 07/24/18 09:48 Trimethoprim/ Sulfamethoxazole (Bactrim-DS) 20 ml EVERY 12 HOURS NG 07/24/18 21:00 07/31/18 20:59 Intake and Output 07/23/18 07/24/18 19:00 07:00 Intake Total 980.0 ml 310 ml Output Total 200 ml 200 ml Balance 780.0 ml 110 ml Free Water 220 ml 50 ml IV Total 280.0 ml 60 ml Tube Feeding 480 ml 200 ml Output Urine Total 200 ml 200 ml Laboratory Tests 07/24/18 05:20: White Blood Count 6.7, Red Blood Count 2.81L, Hemoglobin 9.1L, Hematocrit 26.2L , Mean Corpuscular Volume 93, Mean Corpuscular Hemoglobin 32.3H, Mean Corpuscular Hemoglobin Concent 34.6, Red Cell Distribution Width 10.3L, Platelet Count 154, Mean Platelet Volume 6.8, Neutrophils (%) (Auto) 59.4, Lymphocytes (%) (Auto) 21.7, Monocytes (%) (Auto) 14.5H, Eosinophils (%) (Auto) 3.6H, Basophils (%) (Auto) 0.8, Sodium Level 136, Potassium Level 4.0, Chloride Level 103, Carbon Dioxide Level 30, Anion Gap 4L, Blood Urea Nitrogen 25H, Creatinine 0.4L, Estimat Glomerular Filtration Rate , Glucose Level 125H, Calcium Level 7.8L, Total Bilirubin 0.6, Aspartate Amino Transf (AST/SGOT) 67H, Alanine Aminotransferase (ALT/SGPT) 63, Alkaline Phosphatase 117H, Total Protein 5.7L, Albumin 2.1L, Globulin 3.6, Albumin/Globulin Ratio 0.6L, Prealbumin [Pending] Height (Feet): 5 Height (Inches): 5.00 Weight (Pounds): 117 General Appearance: no apparent distress Cardiovascular: normal rate Respiratory/Chest: decreased breath sounds Abdomen: soft Objective no other changes Da Davis MD Jul 24, 2018 12:56
[2018-07-24] MEDS ORDERED: TRAMADOL HCL50 MG GT (13:00)
[2018-07-24] MEDS ORDERED: Acetaminophen GT (13:00)
[2018-07-24] MEDS ORDERED: LANSOPRAZOLE30 MG GT (13:00)
[2018-07-24] MEDS ORDERED: SYNTHROID25 MCG GT (13:00)
[2018-07-24] MEDS ORDERED: SULFAMETHOXAZO473 ML NG (13:00)
--- NOTE | 2018-07-24 13:03 | Discharge Instructions ---
Discharge Instructions Discharge Instructions Follow up with: myself at [facility] Diet: other - GT feeding Special Instructions routin skin care- head elevation aspiration percautions DNR DNI For Congestive Heart Failure Reminder Report to your physician any weight gain of 5 pounds or more in one week. Da Davis MD Jul 24, 2018 13:03
[2018-07-24] MEDS ORDERED: Albuterol/Ipratropium 3ml neb HHN PRN (13:30)
--- NOTE | 2018-07-24 15:07 | Infectious Diseases Prog Note ---
Assessment/Plan Problems: (1) Aspiration pneumonia Assessment & Plan: due to ESBL producing E.coli , with left perihilar infiltrates , will treat with ertapenem for two weeks total . EOT 08/06/18 recommend aspiration precaution and keep HOB > 30 degree all the time (2) Sepsis Assessment & Plan: due to the above, blood culture is negative . (3) Abdominal wall cellulitis Assessment & Plan: improving, already on wide spectrum antibiotics , continue local wound care . (4) Fever Assessment & Plan: due to the above , improving, continue tylenol and wide spectrum antibiotics (5) HCV antibody positive Assessment & Plan: rule out chronic infection, will order viral load to confirm Subjective ROS Limited/Unobtainable: Yes Allergies: Coded Allergies: NO KNOWN DRUG ALLERGIES (Unverified Allergy, Unknown, 09/20/15) Subjective he was comfortable, lying in bed, contracted, open eyes spontaneously . afebrile , no SOB, no wheezing Objective Vital Signs Last 24 Hour Vital Signs Date Time Temp Pulse Resp B/P (MAP) Pulse Ox O2 Delivery O2 Flow Rate FiO2 07/24/18 12:03 97.2 77 18 134/65 (88) 99 07/24/18 09:00 Nasal Cannula 3.0 07/24/18 08:00 97.5 80 16 127/67 (87) 100 07/24/18 04:00 98.0 81 18 115/71 (86) 100 07/24/18 03:08 97.9 07/24/18 00:20 97.9 81 18 111/71 (84) 100 07/23/18 21:00 Nasal Cannula 3.0 07/23/18 20:00 97.8 78 18 109/76 (87) 100 07/23/18 16:00 98.4 84 20 120/68 (85) 97 Height (Feet): 5 Height (Inches): 5.00 Weight (Pounds): 117 General Appearance: WD/WN, no acute distress, cachetic HEENT: normocephalic, atraumatic, anicteric, mucous membranes moist, supple, no JVD Respiratory/Chest: chest wall non-tender, no respiratory distress, no accessory muscle use, decreased breath sounds, crackles/rales Cardiovascular: normal peripheral pulses, normal rate, regular rhythm, no gallop/murmur, no JVD Abdomen: normal bowel sounds, soft, non tender, no organomegaly, non distended , no mass, no scars Extremities: no cyanosis, no clubbing Skin: no rash, no lesions, no ulcers Neurologic/Psychiatric: alert, oriented x 3, responsive Lymphatic: no neck adenopathy, no groin adenopathy Musculoskeletal: normal muscle bulk, no effusion Laboratory Tests Test 07/24/18 05:20 White Blood Count 6.7 K/UL (4.8-10.8) Red Blood Count 2.81 M/UL (4.70-6.10) L Hemoglobin 9.1 G/DL (14.2-18.0) L Hematocrit 26.2 % (42.0-52.0) L Mean Corpuscular Volume 93 FL (80-99) Mean Corpuscular Hemoglobin 32.3 PG (27.0-31.0) H Mean Corpuscular Hemoglobin Concent 34.6 G/DL (32.0-36.0) Red Cell Distribution Width 10.3 % (11.6-14.8) L Platelet Count 154 K/UL (150-450) Mean Platelet Volume 6.8 FL (6.5-10.1) Neutrophils (%) (Auto) 59.4 % (45.0-75.0) Lymphocytes (%) (Auto) 21.7 % (20.0-45.0) Monocytes (%) (Auto) 14.5 % (1.0-10.0) H Eosinophils (%) (Auto) 3.6 % (0.0-3.0) H Basophils (%) (Auto) 0.8 % (0.0-2.0) Sodium Level 136 MMOL/L (136-145) Potassium Level 4.0 MMOL/L (3.5-5.1) Chloride Level 103 MMOL/L (98-107) Carbon Dioxide Level 30 MMOL/L (21-32) Anion Gap 4 mmol/L (5-15) L Blood Urea Nitrogen 25 mg/dL (7-18) H Creatinine 0.4 MG/DL (0.55-1.30) L Estimat Glomerular Filtration Rate mL/min (>60) Glucose Level 125 MG/DL (74-106) H Calcium Level 7.8 MG/DL (8.5-10.1) L Total Bilirubin 0.6 MG/DL (0.2-1.0) Aspartate Amino Transf (AST/SGOT) 67 U/L (15-37) H Alanine Aminotransferase (ALT/SGPT) 63 U/L (12-78) Alkaline Phosphatase 117 U/L (46-116) H Total Protein 5.7 G/DL (6.4-8.2) L Albumin 2.1 G/DL (3.4-5.0) L Globulin 3.6 g/dL Albumin/Globulin Ratio 0.6 (1.0-2.7) L Prealbumin Pending Current Medications Medications (Trade) Dose Ordered Sig/Jovanna Route PRN Reason Start Time Stop Time Status Last Admin Dose Admin Acetaminophen (Tylenol) 650 mg Q4H PRN GT Mild Pain/Temp > 100.5 07/22/18 21:30 08/19/18 21:29 Albuterol/ Ipratropium (Albuterol/ Ipratropium) 3 ml Q4H PRN HHN Shortness of Breath 07/24/18 13:30 07/29/18 13:29 Ertapenem 1 gm/ Sodium Chloride 55 ml @ 110 mls/hr Q24H IVPB 07/23/18 12:00 07/28/18 11:59 07/24/18 11:14 Heparin Sodium (Porcine) (Heparin 5000 units/ml) 5,000 units EVERY 12 HOURS SUBQ 07/22/18 21:00 08/19/18 20:59 07/24/18 09:49 Iron Sucrose 100 mg/Sodium Chloride 60 ml @ 240 mls/hr BEDTIME IV 07/22/18 21:00 07/26/18 21:14 07/23/18 20:15 Lansoprazole (Prevacid) 30 mg BID GT 07/24/18 18:00 08/23/18 17:59 Levothyroxine Sodium (Synthroid) 25 mcg DAILY@0630 GT 07/23/18 06:30 08/21/18 06:29 07/24/18 06:06 Metoclopramide HCl (Reglan) 10 mg Q6H PRN IVP Nausea & Vomiting 07/22/18 21:30 08/21/18 21:29 Tramadol HCl (Ultram) 25 mg Q8H GT 07/23/18 02:30 07/27/18 18:29 12/1/18 09:48 Trimethoprim/ Sulfamethoxazole (Bactrim-DS) 20 ml EVERY 12 HOURS NG 07/24/18 21:00 07/31/18 20:59 Spencer Carcamo M.D. Jul 24, 2018 15:07
--- NOTE | 2018-07-24 15:26 | General Surgery Progress Note ---
General Surgery-Progress Note Subjective Additional Comments no acute events. doing well. Objective Last 24 Hour Vital Signs Date Time Temp Pulse Resp B/P (MAP) Pulse Ox O2 Delivery O2 Flow Rate FiO2 07/24/18 12:03 97.2 77 18 134/65 (88) 99 07/24/18 09:00 Nasal Cannula 3.0 07/24/18 08:00 97.5 80 16 127/67 (87) 100 07/24/18 04:00 98.0 81 18 115/71 (86) 100 07/24/18 03:08 97.9 07/24/18 00:20 97.9 81 18 111/71 (84) 100 07/23/18 21:00 Nasal Cannula 3.0 07/23/18 20:00 97.8 78 18 109/76 (87) 100 07/23/18 16:00 98.4 84 20 120/68 (85) 97 I&O Intake and Output 07/23/18 07/24/18 19:00 07:00 Intake Total 980.0 ml 310 ml Output Total 200 ml 200 ml Balance 780.0 ml 110 ml Free Water 220 ml 50 ml IV Total 280.0 ml 60 ml Tube Feeding 480 ml 200 ml Output Urine Total 200 ml 200 ml Dressing: other Wound: other Drains: other Cardiovascular: RSR Respiratory: clear Abdomen: soft, flat, present bowel sounds Extremities: other Laboratory Tests Test 07/24/18 05:20 White Blood Count 6.7 K/UL (4.8-10.8) Red Blood Count 2.81 M/UL (4.70-6.10) L Hemoglobin 9.1 G/DL (14.2-18.0) L Hematocrit 26.2 % (42.0-52.0) L Mean Corpuscular Volume 93 FL (80-99) Mean Corpuscular Hemoglobin 32.3 PG (27.0-31.0) H Mean Corpuscular Hemoglobin Concent 34.6 G/DL (32.0-36.0) Red Cell Distribution Width 10.3 % (11.6-14.8) L Platelet Count 154 K/UL (150-450) Mean Platelet Volume 6.8 FL (6.5-10.1) Neutrophils (%) (Auto) 59.4 % (45.0-75.0) Lymphocytes (%) (Auto) 21.7 % (20.0-45.0) Monocytes (%) (Auto) 14.5 % (1.0-10.0) H Eosinophils (%) (Auto) 3.6 % (0.0-3.0) H Basophils (%) (Auto) 0.8 % (0.0-2.0) Sodium Level 136 MMOL/L (136-145) Potassium Level 4.0 MMOL/L (3.5-5.1) Chloride Level 103 MMOL/L (98-107) Carbon Dioxide Level 30 MMOL/L (21-32) Anion Gap 4 mmol/L (5-15) L Blood Urea Nitrogen 25 mg/dL (7-18) H Creatinine 0.4 MG/DL (0.55-1.30) L Estimat Glomerular Filtration Rate mL/min (>60) Glucose Level 125 MG/DL (74-106) H Calcium Level 7.8 MG/DL (8.5-10.1) L Total Bilirubin 0.6 MG/DL (0.2-1.0) Aspartate Amino Transf (AST/SGOT) 67 U/L (15-37) H Alanine Aminotransferase (ALT/SGPT) 63 U/L (12-78) Alkaline Phosphatase 117 U/L (46-116) H Total Protein 5.7 G/DL (6.4-8.2) L Albumin 2.1 G/DL (3.4-5.0) L Globulin 3.6 g/dL Albumin/Globulin Ratio 0.6 (1.0-2.7) L Prealbumin Pending Plan Problems: (1) Severe protein-calorie malnutrition Assessment & Plan: Will need nutritional optimization for proper wound healing will check labs nutrition consult increase intake thank you (2) Decubitus ulcer Assessment & Plan: Patient present with multiple pressure injuries. Maroon discoloration noted to L shoulder (L)3cm x (W)5.5cm Full thickness pressure injury to thoracic spine with 100% slough and red borders(L)0.5cm x (W)0.7cm .Non-blanching erythema periwound. Full thickness pressure injury to sacrum with 50% slough (L)2cm x (W) 1.5cm.Marginal erythema at borders .Non-blanching erythema periwound. Scrotum red but is intact. Resolving pressure injury noted to medial L tibia. Resolving pressure injury noted to dorsum R foot , pink and dry. R 1st metatarsal head,lateral and plantar aspect fluctuant and maroon in color. R hallux maroon and fluctuant. Both heels are boggy but blanchable. All wounds present upon admission and will be cared for during hospital stay Tx.Plan: Cleanse wounds sacrum and Thoracic area with Saline.Apply Therahoney gel. Cover with Optifoam drsg Daily and and prn. Apply Cavilon to L shoulder.Cover with Optifoam drsg .Change Daily and prn. Apply Cavilon wipes to R 1st metatarsal and R hallux.Cover with Optifoam drsg .Change every 7 days and prn. Cavilon to both heels .Cover with Optifoam drsg .Change every 7days and prn Reposition at minimum every 2hours or as tolerated. Surface Support mattress. Additional Comments okay to d/c from surgical standpoint outpatient nutrition and wound care Cecil Young Jul 24, 2018 15:26
[2018-07-24 16:16] VITALS: BP 122/63
[2018-07-24] MEDS ORDERED: Bactrim Susp 20ml NG SCH (21:00)
--- NOTE | 2018-07-27 08:07 | Discharge Summary ---
Discharge Summary Discharge Summary _ DATE OF ADMISSION: 07/20/2018 DATE OF DISCHARGE: 07/24/2018 REASON FOR ADMISSION: 83 years old male with DNR/DNI status, with past medical history of dementia, hypothyroidism, dysphagia, G-tube, malnutrition ,anemia, hypertension, multiple pressure ulcers, resident of residential facility, was recently taken off hospice. Patient was transferred to emergency room for evaluation due to fever and lethargy. Upon evaluation vital signs revealed fever and mild tachycardia. Laboratory data showed no leukocytosis ( leukocytosis next day), hemoglobin 12.3, sodium 127, BUN 24, creatinine 0.5; elevated AST 105 and ALT 89. Albumin 2.5. Urinalysis with pyuria and occasional bacteria. Chest x-ray revealed left perihilar infiltrate. Troponin negative, EKG revealed normal sinus rhythm, no acute ischemic changes . Patient admitted with diagnoses of pneumonia , possible UTI, hyponatremia , dysphagia ,G-tube, malnutrition, anemia ,dementia, elevated liver enzymes. CONSULTANTS: pulmonary Dr. Gallegos ID specialist Dr. Carcamo surgery Dr. Young [facility] COURSE: Patient admitted and started on IV hydration. G tube feeding resumed. Patient started on empiric antibiotics. DVT and GI prophylaxis with PPI provided. Symptomatic treatment with Tylenol for pain and fever and Reglan as needed for nausea and vomiting was on board. Pulmonary ID consults closely followed Blood and urine culture were negative. Influenza screen test was negative. Sputum culture revealed Escherichia coli ESBL. Supplemental oxygen provided as needed to keep pulse oximetry above 92%. Pulmonary toilet provided around the clock and as needed. Strict aspiration precautions were maintained. Patient was able to tolerate G-tube feeding. Local wound care provided for abdominal wall cellulitis. Levothyroxine continued. Patient initially received IV fluids. Renal parameters and electrolytes were closely monitored ,electrolytes corrected as needed. Sodium up to normal. LFT trending down. Hepatitis panel positive for hepatitis C. Hemoglobin and hematocrit were closely monitored with goal to keep hemoglobin above 7. Anemia workup revealed anemia of chronic disease. Patient received 1 dose of Venofer. Hemoglobin and hematocrit at baseline prior to discharge. Wound care provided as per surgeon recommendations for multiple pressure ulcers , present on admission. No surgical intervention was necessary at this time. Human Resources Officer recommendations implemented in plan of care . Bowel regimen instituted . Supportive care provided. Pain management was addressed . Patient stabilized and was ready for transfer back to residential facility. Recommended end-of-life care/palliative care FINAL DIAGNOSES: sepsis aspiration pneumonia with Escherichia coli ESBL abdominal wall cellulitis severe protein calorie malnutrition anemia of chronic disease dysphagia /PEG dementia elevated LFT hepatitis C hyponatremia- resolved multiple pressure ulcers, present on admission DISCHARGE MEDICATIONS: See Medication Reconciliation list. DISCHARGE INSTRUCTIONS: Patient was discharged to the residential facility. Follow up with medical doctor at the facility. Amy Stringer NP Jul 27, 2018 08:07
== END 2018-07-24 17:05 | DRG 871 ==
LOC: EDBD 13:25 → EMR 14:15 → 2E 14:45 → EDBEDREQ 14:56 → 2E 15:59 → 4E 07-22 21:03
DX: A41.9 Sepsis, unspecified organism (principal); J69.0 Pneumonitis due to inhalation of food and vomit; J15.5 Pneumonia due to Escherichia coli; E43 Unspecified severe protein-calorie malnutrition; E46 Unspecified protein-calorie malnutrition; N39.0 Urinary tract infection, site not specified; E87.1 Hypo-osmolality and hyponatremia; Z43.1 Encounter for attention to gastrostomy; L03.311 Cellulitis of abdominal wall; Z16.12 Extended spectrum beta lactamase (ESBL) resistance; Z66 Do not resuscitate; F03.90 Unspecified dementia, unspecified severity, without behavioral disturbance, psychotic disturbance, mood disturbance, and anxiety; D63.8 Anemia in other chronic diseases classified elsewhere; R13.10 Dysphagia, unspecified; B19.20 Unspecified viral hepatitis C without hepatic coma; L89.90 Pressure ulcer of unspecified site, unspecified stage; I10 Essential (primary) hypertension; L89.109 Pressure ulcer of unspecified part of back, unspecified stage; L89.159 Pressure ulcer of sacral region, unspecified stage; L89.899 Pressure ulcer of other site, unspecified stage
CPT/HCPCS: 36415; 71045; 80053; 80061; 81003; 82248; 82550; 82607; 82728; 82746; 82977; 83540; 83550; 83605; 83735; 83880; 84100; 84134; 84443; 84484; 84550; 85007; 85025; 85610; 85730; 86140; 86705; 86709; 86710; 86803; 87040; 87070; 87081; 87086; 87181; 87205; 87340; 93005; 96365; 96367; 96368; 99285